=== PATIENT | female | born 1985 | race Caucasian/White ===

== ENCOUNTER 2023-06-17 15:18 | Outpatient (OUT) | payer OTHER, SELFPAY ==
[2023-06-17 15:48] LABS: Estimated Average Glucose 151 mg/dL; Glycohemoglobin A1C 6.9 % (4.5-6.2)
[2023-06-19 11:14] LABS: Insulin 19.6 uIU/mL (2.6-24.9)
== END 2023-06-17 15:19 | disposition home or self-care (01) ==
LOC: LAB 15:20
PROVIDERS: PCP Nurse Practitioner Family; Visit Provider Nurse Practitioner Family
DX: E66.01 Morbid (severe) obesity due to excess calories (principal)
CPT/HCPCS: 36415; 83036; 83525

== ENCOUNTER 2024-03-17 11:33 | Outpatient (OUT) | payer OTHER, SELFPAY ==
[2024-03-17 12:00] LABS: Estimated Average Glucose 171 mg/dL; Glycohemoglobin A1C 7.6 % (4.5-6.2)
[2024-03-17 12:32] LABS: Alanine Aminotransferase 41 U/L (14-59); Albumin Globulin Ratio 1.1; Alkaline Phosphatase 76 U/L (46-116); Anion Gap 14.9; Aspartate Amino Transferase 24 U/L (15-37); Bilirubin Total 0.6 mg/dL (0.2-1.0); Calcium 9.7 mg/dL (8.5-10.1); Carbon Dioxide 26.7 mmol/L (21.0-32.0); Chloride 98 mmol/L (98-107); Chol HDL Ratio 3.9; Cholesterol 183 mg/dL (<=200); Estimated GFR (African America >60 (>=60); Estimated GFR (Non-African Ame >60 (>=60); Free T3 2.79 pg/mL (2.18-3.98); Globulin 3.8 g/dL; Glucose 168 mg/dL (74-106); HDL Cholesterol 47 mg/dL (40-60); Potassium 4.6 mmol/L (3.5-5.1); Sodium 135 mmol/L (136-145); Thyroid Stimulating Hormone 1.348 uIU/mL (0.358-3.740); Total Protein 7.8 g/dL (6.4-8.2); Triglycerides 254 mg/dL (<=150); VLDL CHOLESTEROL 50.8 mg/dL
[2024-03-17 13:43] LABS: Basophils Percent Auto 0.4 % (0.2-2.0); Eosinophils Absolute Auto 0.2 10^3/uL (0.0-0.7); Eosinophils Percent Auto 2.5 % (0.9-7.0); Hematocrit 41.9 % (36.0-48.0); Hemoglobin 13.7 g/dL (12.0-16.0); Immature Granulocytes Abs Auto 0.03 10^3/uL (0.00-0.03); Immature Granulocytes Pct Auto 0.4 % (0.0-0.5); Lymphocytes Absolute Auto 2.4 10^3/uL (1.2-3.8); Lymphocytes Percent Auto 33.1 % (20.5-60.0); Mean Corpuscular HGB Conc 32.7 g/dL (29.9-35.2); Mean Corpuscular Hemoglobin 28.1 pg (26.7-34.0); Mean Platelet Volume 12.3 fL (9.5-13.5); Monocytes Absolute Auto 0.3 10^3/uL (0.3-0.8); Monocytes Percent Auto 4.4 % (1.7-12.0); Neutrophils Absolute Auto 4.3 10^3/uL (1.4-6.5); Neutrophils Percent Auto 59.2 % (43.0-75.0); Platelet Count 259 10^3/uL (150-450); Red Blood Count 4.87 10^6/uL (4.20-5.40); Red Cell Distribution Width 13.7 % (11.0-15.0); White Blood Count 7.3 10^3/uL (4.0-11.0)
[2024-03-18 09:10] LABS: Insulin 35.8 uIU/mL (2.6-24.9)
== END 2024-03-17 11:34 | disposition home or self-care (01) ==
PROVIDERS: PCP Nurse Practitioner Family; Visit Provider Nurse Practitioner Family
DX: E78.5 Hyperlipidemia, unspecified (principal); R53.83 Other fatigue; E11.9 Type 2 diabetes mellitus without complications; E16.1 Other hypoglycemia
CPT/HCPCS: 36415; 80053; 80061; 82306; 83036; 83525; 83540; 84436; 84443; 84481; 85025

== ENCOUNTER 2025-03-18 12:34 | Outpatient (OUT) | payer OTHER, SELFPAY ==
[2025-03-18 12:51] LABS: Basophils Percent Auto 0.4 % (0.2-2.0); Eosinophils Absolute Auto 0.2 10^3/uL (0.0-0.7); Eosinophils Percent Auto 2.3 % (0.9-7.0); Hematocrit 44.3 % (36.0-48.0); Hemoglobin 14.7 g/dL (12.0-16.0); Immature Granulocytes Abs Auto 0.01 10^3/uL (0.00-0.03); Immature Granulocytes Pct Auto 0.1 % (0.0-0.5); Lymphocytes Absolute Auto 2.6 10^3/uL (1.2-3.8); Lymphocytes Percent Auto 36.9 % (20.5-60.0); Mean Corpuscular HGB Conc 33.2 g/dL (29.9-35.2); Mean Corpuscular Hemoglobin 28.1 pg (26.7-34.0); Mean Corpuscular Volume 84.7 fL (81.0-99.0); Mean Platelet Volume 11.2 fL (9.5-13.5); Monocytes Absolute Auto 0.2 10^3/uL (0.3-0.8); Monocytes Percent Auto 3.5 % (1.7-12.0); Neutrophils Absolute Auto 3.9 10^3/uL (1.4-6.5); Neutrophils Percent Auto 56.8 % (43.0-75.0); Platelet Count 252 10^3/uL (150-450); Red Blood Count 5.23 10^6/uL (4.20-5.40); White Blood Count 6.9 10^3/uL (4.0-11.0)
[2025-03-18 13:05] LABS: Estimated Average Glucose 269 mg/dL
[2025-03-18 13:26] LABS: Alanine Aminotransferase 58 U/L (14-59); Albumin Level 3.8 g/dL (3.4-5.0); Alkaline Phosphatase 101 U/L (46-116); Anion Gap 12.9; Aspartate Amino Transferase 50 U/L (15-37); BUN Creatinine Ratio 10.7; Bilirubin Total 0.5 mg/dL (0.2-1.0); Calcium 9.3 mg/dL (8.5-10.1); Carbon Dioxide 27.5 mmol/L (21.0-32.0); Chloride 101 mmol/L (98-107); Chol HDL Ratio 3.7; Cholesterol 177 mg/dL (<=200); Estimated GFR (African America >60 (>=60 mL/min/1.73m^2); Estimated GFR (Non-African Ame >60 (>=60 mL/min/1.73m^2); Free T3 2.29 pg/mL (2.18-3.98); Globulin 3.8 g/dL; Glucose 207 mg/dL (74-106); HDL Cholesterol 48 mg/dL (40-60); Potassium 4.4 mmol/L (3.5-5.1); Sodium 137 mmol/L (136-145); Thyroid Stimulating Hormone 2.029 uIU/mL (0.358-3.740); Total Protein 7.6 g/dL (6.4-8.2); Triglycerides 200 mg/dL (<=150)
[2025-03-20 14:13] LABS: Insulin 23.6 uIU/mL (2.6-24.9)
== END 2025-03-18 12:35 | disposition home or self-care (01) ==
LOC: LAB 12:36
PROVIDERS: PCP Nurse Practitioner Family; Visit Provider Nurse Practitioner Family
DX: Z00.00 Encounter for general adult medical examination without abnormal findings (principal)
CPT/HCPCS: 36415; 80053; 80061; 82306; 83036; 83525; 83540; 84436; 84443; 84481; 85025

== ENCOUNTER 2025-06-23 16:18 | Outpatient (OUT) | payer OTHER, SELFPAY ==
--- OUTSIDE RECORDS SUMMARY | 2025-03-17 10:32 | XMS_ITS ---
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 Name Role Phone Ling Jacobs Primary Care Provider REASON FOR VISIT yearly labs Encounters Encounter Location Date Provider Diagnosis [facility] [address] [place] [address] 03/17/2025 Ling Jacobs Wellness examination Z00.00 Assessments Encounter Date Diagnosis (ICD Code) Assessment Notes Treatment Notes Treatment Clinical Notes Section Notes 03/17/2025 Wellness examination (ICD-10 - Z00.00) Plan Of Treatment Pending Test Test Name Order Date HEMOGLOBIN A1C (GLYCO) 03/17/2025 IRON, TOTAL 03/17/2025 LIPID PANEL (CHOL/TRIG/HDL/LDL) 03/17/20 25 VITAMIN D, 25 LEVEL (TOTAL) 03/17/2025 Insulin Level 03/17/2025 THYROID PANEL (T4/TSH/FREE T3) 5 CMP (COMP MET BENITEZ) w/eGFR CKD-EPI 2024 CBC WITH DIFF 03/17/2025 Next Appt Details Provider Name:Ling plummer, 06/26/2025 04:00:00 PM, [address] [place], [address], Progress Notes * Desirae ROBLES LDOB:[birth year] (40 yo F)Acc No.[id number]:03/17/2025 Patient: Inocencia HAWKINSDesirae FRY :1985 A ge:40 Y S ex:Female Address:[address] [place] [address], [id number] Subjective: * Chief Complaints: * Y early labs * Medical History: * Surgical History: * Hospitalization/Major Diagno stic Procedure: * Medications: Objective: * Vitals: * Physical Examination: Assessment: * Assessment: 1. [facility] examination - Z00.00 (Primary) Plan: * Treatment: * Procedure Codes: * true * Date: Generated for Jane summers/Daniel/Devansmitting on: 0 06/23/2025 04:23 PM EDT
--- OUTSIDE RECORDS SUMMARY | 2025-03-23 12:00 | XMS_ITS ---
Author Organization [facility] in [place] Address [address] [place] [address] Care Team Providers Care Relocation Coordinator Name Role Phone Ling Jacobs Primary Care Provider Allergies No Known Allergies REASON FOR VISIT Presents to office alone for 3 month check up Medications Medication SIG (Take, Route, Frequency, Duration) Notes Start Date End Date Status Cetirizine HCl 10 MG TAKE 1 TABLET BY MO UTH EVERY DAY NEEDED for 30 Active Amitriptyline HCl 50 MG 1 tablet at bedt shanae Orally Once a day for 30 days 08/01/2024 Active Atorvastatin Calcium 40 MG TAKE 1 TABLET BY MOUTH EVERY DAY for 90 Active busPIRone HCl 15 MG TAKE 1 TABLET BY JUSTIN TWICE A DAY for 30 Active Escitalopram Oxalate 20 MG TAKE 1 TABLET BY MOUTH EVERY DAY FOR 30 DAYS for 30 Active Triamcinolone Acetonide 0.1 % APPLY EXTERNALLY TWICE A DAY for 30 days Active valACYclovir HCl 1 GM 2 tablet Orally BI D for 1 days 08/18/2024 Active Victoza 18 MG/3ML 1.8 mg daily Subcuta neous qd for 90 days 08/01/2024 Active Vitamin D3 50 MCG (1999) TAKE 2 TABLE TS BY MOUTH EVERY DAY for 30 days Active metFORMIN HCl 500 MG TAKE 1 TABLET BY MO UTH TWICE A DAY WITH A MEAL FOR 90 DAYS for 90 Active Omeprazole 40 MG TAKE 1 CAPSULE BY MO UTH EVERY DAY for 30 Active Ondansetron HCl 4 MG TAKE 1 TABLET BY MO UTH TWICE A DAY NEEDED for 30 days Active Pen [place] 31G X 6 MM as directed for 30 days Active Lisinopril 40 MG TAKE 1 TABLET BY JUSTIN TH EVERY DAY FOR 30 DAYS for 30 Active Social History Tobacco Use: Social History Observation Description Date Details (start date - stop date) Never Smoker NA - NA Tobacco Use/Smoking Question Answer Notes Patient is a nonsmoker AUDIT-C (Standard) Question Answer Notes Did you have a drink containing alcohol in the p ast year? No Points 0 Interpretation Negative Vital Signs Blood pressure systolic 144 mm Hg 03/23/20 25 Blood pressure diastolic 82 mm Hg 025 Height 63 in 03/23/2025 Weight 399.8 lbs 03/23/2025 BMI 70.81 kg/m2 03/23/2025 Encounters Encounter Location Date Provider Diagnosis [facility] [address] [place] [address] 03/23/2025 Ling Jacobs Type 2 diabetes mellitus without complications E11.9 and Other disorders of psychological development F88 Assessments Encounter Date Diagnosis (ICD Code) Assessment Notes Treatment Notes Treatment Clinical Notes Section Notes 03/23/2025 Type 2 diabetes mellitus without complications (ICD-10 - E11.9) increase Victoza work on diet not checking BS 03/23/2025 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) mental acuity affecting health Plan Of Treatment Medication Medication Name Sig Start Date Stop Date Notes Victoza 18 MG/3ML 1.8 mg daily Subcutaneous qd for 90 days 08/01/2024 Treatment Notes Assessment Notes Type 2 diabetes mellitus wit hout complications increase Victoza work on diet not checking BS Other disorders of psychological develop ment mental acuity affecting health Pending Test Test Name Order Date HEMOGLOBIN A1C (GLYCO) 03/23/2025 Next Appt Details Follow Up: 3 Months,Heather lawson son: Provider Name:Ling plummer, 06/26/2025 04:00:00 PM, [address] [place], [address], Progress Notes * Desirae ROBLES LDOB:[birth year] (40 yo F)Acc No.[id number]:03/23/2025 Progress Note Patient: Desirae OG Provider: Luis Jacobs ([facility]), MEDICAL INSTRUMENT TECHNICIAN :1985 A ge:40 Y S ex:Female Date:03/23/2025 Address:[address] [place] [address], [id number] Check In:03:49 PM ESTCheck O ut:04:22 PM EST Subjective: * Chief Complaints: * 1 . Presents to office alone for 3 month check up. * HPI: G eneral: Dad 2 months ago got 2 year old Ivorian georgi walking dog friend moved in with brother and her doing ok getting to [employer] game in May sleeping ok 1.8 increase Victoza 3 month does not want to see derm for psoriasis. * ROS: G eneral/Constitutional: Fever d enies. H eadache d enies. W eight loss?denies. O phthalmologic: Discharge d enies. E ye Pain d enies. I tching and redness d enies. E NT: Nasal discharge d enies. N simran congestion d enies.?Sore throat d enies. C ardiovascular: Chest tightness/ heavy pressure d enies. R apid heart rate d enies. S welling of extremities d enies. C hest pain d enies. ? R espiratory: Productive cough d enies. C hest pain d enies. C ough d enies. S hortness of breath d enies. W heezing d enies. ? G astrointestinal: Abdominal pain d enies. C onstipation d enies. D ecreased appetite d enies. D iarrhea d enies. N ausea d enies. V omiting?denies. G enitourinary: Urinary incontinence d enies. P ainful urination d enies. M usculoskeletal: Back pain d enies. N barbara pain d enies. M uscle aches d enies. S kin: Rash d enies. S kin lesion(s) p soriasis. ? s ome grief, handling ok. 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 Modified On:03/04/2023W/U Status:confirmed H61.23 Impacted cerumen, bi lateral Modified On:03/04/2023W/U Status:confirmed J01.11 Acute recurrent fron rajendra sinusitis Modified On:03/04/2023 Status:confirmed L40.9 Psoriasis Modified On:03/04/2023 Status:confirmed I10 Hypertension Modified On:03/04/2023 Status:confirmed K21.9 GERD (gastroesophage al reflux disease) Modified On:03/04/2023 Status:confirmed E78.5 Dyslipidemia Modified On:03/04/2023 Status:confirmed R73.9 Hyperglycemia Modified On:03/04/2023 Status:confirmed G47.00 Insomnia Modified On:07/24/2023 Status:confirmed E55.9 Vitamin D deficiency Modified On:03/04/2023 Status:confirmed F41.8 Depression with anxi ety Modified On:03/04/2023 Status:confirmed J30.2 Seasonal allergic rh initis Modified On:03/04/2023 Status:confirmed F41.0 Panic attack Modified On:03/04/2023 Status:confirmed E88.81 Dysmetabolic syndrom e X Modified On:03/04/2023 Status:confirmed E16.1 Hyperinsulinemia Modified On:03/04/2023 Status:confirmed Z68.45 BMI 70 and over, abbey lt Modified On:03/04/2023 Status:confirmed 477.9 Seasonal allergic rh initis Modified On:03/04/2023 Status:confirmed E66.01 Morbid (severe) obes ity due to excess calories Modified On:06/12/2023 Status:confirmed F41.0 Panic anxiety syndro me Modified On:02/03/2023 Status:confirmed F41.8 Anxiety disorder in conditions classified elsewhere Modified On:08/14/2023 Status:confirmed F41.9 Anxiety disorder, un specified Modified On:08/19/2023 Status:confirmed E11.9 Type 2 diabetes simon itus without complications Modified On:09/17/2023 Status:confirmed * Medical History: P anic attack, Insomnia, GERD (gastroesophageal reflux disease), BMI 70 and over, adult, Hyperglycemia, Hyperinsulinemia, Impacted cerumen, bilateral, Other disorders of psychological development, Acute recurrent frontal sinusitis, Vitamin D deficiency, Depression with anxiety, Dyslipidemia, Dysmetabolic syndrome X, Psoriasis, Seasonal allergic rhinitis, Seasonal allergic rhinitis, Hypertension, Morbid (severe) obesity due to excess calories, Headache. * Surgical History: w isdom teeth extracted . * Family History: F ather: alive, diagnosed with Other malignant neoplasm of unspecified site, Diabetes mellitus without mention of complication, type II or unspecified type, not stated as uncontrolled, Unspecified essential hypertension, Unspecified heart disease, Chronic kidney disease, unspecified. M other: , passed in 2004 from heart disease, diagnosed with Unspecified heart disease. B rother(s): alive. 1 brother(s) . . * Social History: T obacco Use: T obacco Use/Smoking P atient is a n onsmoker D rug/Alcohol: A KEVON-C (Standard) D id you have a drink containing alcohol in the past year? N o P oints 0 I nterpretation N egative * Medications: T aking Amitriptyline HCl 50 MG Tablet 1 tablet at bedtime Orally Once a day , Taking Atorvastatin Calcium 40 MG Tablet TAKE 1 TABLET BY MOUTH EVERY DAY , Taking busPIRone HCl 15 MG Tablet TAKE 1 TABLET BY MOUTH TWICE A DAY , Taking Cetirizine HCl 10 MG Tablet TAKE 1 TABLET BY MOUTH EVERY DAY NEEDED , Taking Escitalopram Oxalate 20 MG Tablet TAKE 1 TABLET BY MOUTH EVERY DAY FOR 30 DAYS , Taking Lisinopril 40 MG Tablet TAKE 1 TABLET BY MOUTH EVERY DAY FOR 30 DAYS , Taking metFORMIN HCl 500 MG Tablet TAKE 1 TABLET BY MOUTH TWICE A DAY WITH A MEAL FOR 90 DAYS , Taking Omeprazole 40 MG Capsule Delayed Release TAKE 1 CAPSULE BY MOUTH EVERY DAY , Taking Ondansetron HCl 4 MG Tablet TAKE 1 TABLET BY MOUTH TWICE A DAY NEEDED , Taking Pen [place] 31G X 6 MM Miscellaneous as directed , Taking Triamcinolone Acetonide 0.1 % Cream APPLY EXTERNALLY TWICE A DAY , Taking valACYclovir HCl 1 GM Tablet 2 tablet Orally BID , Taking Victoza(Liraglutide) 18 MG/3ML Solution Pen-injector 1.2 mg daily Subcutaneous qd , Taking Vitamin D3 50 MCG (2000 UT) Tablet TAKE 2 TABLETS BY MOUTH EVERY DAY , Discontinued Xanax(ALPRAZolam) 0.25 MG Tablet 1 tablet Orally once a day as needed anxiety , Medication List reviewed and reconciled with the patient * Allergies: N .K.D.A. Objective: * Vitals: W t:399.8lbs, Ht: 63 in, BP:144/82mm Hg, BMI:70.81Index, Ht-cm: 160.02 cm, Wt-k.35 kg. * Examination: G eneral Examinations: GENERAL APPEARANCE: a lert and oriented, in no acute distress, obese. EYES: c onjunctiva normal, sclera non-icteric. NOSE: n ormal external appearance. LUNGS: c lear to auscultation bilaterally. CARDIO: r egular rate and rhythm, S1, S2 normal. ABDOMEN: s oft, obese. MUSCULOSKELETAL: d ecreased ROM due to body habitus. SKIN: e xtensive psoriasis. Assessment: * Assessment: 1. T ype 2 diabetes mellitus without complications - E11.9 (Primary) 2 . 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 O ther disorders of psychological development Notes: mental acuity affecting health * Preventive Medicine: Screenings/Counseling: B CT ACTION PLAN Above Normal BMI Follow-up D ietary management education, guidance, and counseling See treatment section of progress note for complete details of management plan. * Follow Up: 3 Months,prn * * Electronically signed by Archana Jacobs NP, AUTO AIR CONDITIONING APPRENTICE.MEDICAL INSTRUMENT TECHNICIAN.[id number] on 03/27/2025 at 11:45 AM EDT Sign off status: Completed Visit Status: C HK (Check Out) true * Provider: Luis Jacobs ([facility]), MEDICAL INSTRUMENT TECHNICIAN Date: 03/23/2025 Generated for Jane summers/Daniel/eTransmitting on: 0 06/23/2025 04:23 PM EDT History and Physical Notes * HPI (History of Present Illness) Category Sub-Category Detail Notes Category Not es General Dad 2 months ago got 2 year old Ivorian georgi walking dog friend moved in with brother and her doing ok getting to [employer] game in May sleeping ok 1.8 increase Victoza 3 month does not want to see derm for psoriasis Examination Category Sub-Category Detail Notes Category Not es General Examinations GENERAL APPEARANCE: alert a nd oriented, in no acute distress, obese EYES: conjunctiva normal, sclera non-icteric EARS: NOSE: normal external appe arance THROAT: CARDIO: regular rate and rhy thm, S1, S2 normal LUNGS: clear to auscultatio n bilaterally ABDOMEN: soft, obese SKIN: extensive psoriasis BACK: MUSCULOSKELETAL: decreased ROM due to body habitus LYMPH NODES:
--- OUTSIDE RECORDS SUMMARY | 2025-06-23 16:24 | XMS_ITS | Patient Health Record ---
Author Organization [facility] [place] Address [address] [place] [address] Care Team Providers Care Sizer Hand Name Role Phone Ling Jacobs Primary Care Provider [phone] [phone] Allergies No Known Allergies Results Component Value Reference Range Notes INSULIN Reviewed date:03/21/2025 08:46:08 AM Interpretation: Performing Lab: Notes/Report: [facility] , Insulin 23.6 2.6-24.9 uIU/mL Performed at: - [facility] [address] [id number] Scoop Operator: Joel Mckeon PhD, Phone: [phone] Performing Lab: see note - [facility] LB IRON Reviewed date:03/20/2025 01:16:12 PM Interpretation: Performing Lab: Notes/Report: [facility] , Iron 45.0 50.0-170.0 ug/dL Performing Lab: see note ML - [facility] LB GLYCOHEMOGLOBIN A1C Reviewed date:03/20/2025 01:16:12 PM Interpretation: Performing Lab: Notes/Report: [facility] , Glycohemoglobin A1C 11.0 4.5-6.2 % ADA RECOMMENDED LIMIT 4.0 - 6.0 ADA THERAPEUTIC TARGET < 7.0 ACTION SUGGESTED > 7.0 Estimated Average Glucose 269 Performing Lab: see note - [facility] LB CBC AUTO DIFF Reviewed date:03/20/2025 01:16:12 PM Interpretation: Performing Lab: Notes/Report: [facility] , White Blood Count 6.9 4.0-11.0 10 3/uL Red Blood Count 5.23 4.20-5.40 10 6/uL Hemoglobin 14.7 12.0-16.0 g/dL Hematocrit 44.3 36.0-48.0 % Mean Corpuscular Volume 84.7 81.0-99.0 fL Mean Corpuscular Hemoglobin 28.1 26.7-34.0 pg Mean Corpuscular HGB Conc 33.2 29.9-35.2 g/dL Red Cell Distribution Width 14.0 11.0-15.0 % Platelet Count 252 150-450 10 3/uL Mean Platelet Volume 11.2 9.5-13.5 fL Neutrophils Percent Auto 56.8 43.0-75.0 % Lymphocytes Percent Auto 36.9 20.5-60.0 % Monocytes Percent Auto 3.5 1.7-12.0 % Eosinophils Percent Auto 2.3 0.9-7.0 % Basophils Percent Auto 0.4 0.2-2.0 % Immature Granulocytes Pct Auto 0.1 0.0-0.5 % Neutrophils Absolute Auto 3.9 1.4-6.5 10 3/uL Lymphocytes Absolute Auto 2.6 1.2-3.8 10 3/uL Monocytes Absolute Auto 0.2 0.3-0.8 10 3/uL Eosinophils Absolute Auto 0.2 0.0-0.7 10 3/uL Basophils Absolute Auto 0.0 0.0-0.1 10 3/uL Immature Granulocytes Abs Auto 0.01 0.00-0.03 10 3/uL Performing Lab: see note ML - [facility] LB TSH Reviewed date:03/20/2025 01:16:12 PM Interpretation: Performing Lab: Notes/Report: [facility] , Thyroid Stimulating Hormone 2.029 0.358-3.740 u IU/mL Performing Lab: see note ML - [facility] LB T4 Reviewed date:03/20/2025 01:16:12 PM Interpretation: Performing Lab: Notes/Report: [facility] , T4 Thyroxine 6.00 4.80-13.90 ug/dL Performing Lab: see note - [facility] LB PROF 14(COMP METB) Reviewed date:03/20/2025 01:16:12 PM Interpretation: Performing Lab: Notes/Report: [facility] , Sodium 137 136-145 mmol/L Potassium 4.4 3.5-5.1 mmol/L Chloride 101 98-107 mmol/L Carbon Dioxide 27.5 21.0-32.0 mmol/L Anion Gap 12.9 Glucose 207 74-106 mg/dL Blood Urea Nitrogen 8.0 7.0-18.0 mg/dL Creatinine 0.75 0.55-1.02 mg/dL Estimated GFR ( Gladys >60 >=60 mL/min/1.73m 2 Estimated GFR (Non- Doris >60 >=60 mL/min/1.73m 2 BUN Creatinine Ratio 10.7 Calcium 9.3 8.5-10.1 mg/dL Bilirubin Total 0.5 0.2-1.0 mg/dL Aspartate Amino Transferase 50 15-37 U/L Alanine Aminotransferase 58 14-59 U/L Alkaline Phosphatase 101 46-116 U/L Total Protein 7.6 6.4-8.2 g/dL Albumin Level 3.8 3.4-5.0 g/dL Globulin 3.8 Albumin Globulin Ratio 1.0 Performing Lab: see note ML - [facility] LIPID PROFILE Reviewed date:03/20/2025 01:16:12 PM Interpretation: Performing Lab: Notes/Report: [facility] , Triglycerides 200 <=150 mg/dL Cholesterol 177 <=200 mg/dL HDL Cholesterol 48 40-60 mg/dL > or =60 mg/dl - LOW CARDIOVASCULAR RISK <40 mg/dl - HIGH CARDIOVASCULAR RISK LDL Cholesterol Calculated 89.0 <100 mg/dl OPTIMAL 100-129 mg/dl NEAR OR ABOVE OPTIMAL 130-159 mg/dl BORDERLINE HIGH 160-189 mg/dl HIGH >190 mg/dl VERY HIGH VLDL CHOLESTEROL 40.0 Chol HDL Ratio 3.7 3.3 - 4.4 LOW RISK 4.4 - 7.1 AVERAGE RISK 7.1 - 11.0 MODERATE RISK >11.0 HIGH RISK Performing Lab: see note ML - [facility] FREE T3 Reviewed date:03/20/2025 01:16:12 PM Interpretation: Performing Lab: Notes/Report: [facility] , Free T3 2.29 2.18-3.98 pg/mL Performing Lab: see note ML - [facility] VITAMIN D 25 [place] Reviewed date:03/20/2025 01:16:12 PM Interpretation: Performing Lab: Notes/Report: [facility] , Vitamin D 35.8 <20 ng/mL Vit D deficient 20-<30 ng/mL Vit D insufficient 30-100 ng/mL Vit D sufficient >100 ng/mL Potential Toxicity Performing Lab: see note ML - [facility] LB Reason For Referral No Information Medications Medication SIG (Take, Route, Frequency, Duration) Notes Start Date End Date Status metFORMIN HCl 500 MG TAKE 1 TABLET BY MO UTH TWICE A DAY WITH A MEAL FOR 90 DAYS for 90 Active Cetirizine HCl 10 MG TAKE 1 TABLET BY MO UTH EVERY DAY FOR 30 DAYS for 30 Active Omeprazole 40 MG TAKE 1 CAPSULE BY MO UTH EVERY DAY for 30 Active Pen [place] 31G X 6 MM as directed for 30 days Active Escitalopram Oxalate 20 MG TAKE 1 TABLET BY MOUTH EVERY DAY FOR 30 DAYS for 30 Active Lisinopril 40 MG TAKE 1 TABLET BY JUSTIN TH EVERY DAY FOR 30 DAYS for 30 Active Triamcinolone Acetonide 0.1 % APPLY EXTERNALLY TWICE A DAY for 30 days Active Amitriptyline HCl 50 MG 1 tablet at bedt shanae Orally Once a day for 30 days 08/01/2024 Active valACYclovir HCl 1 GM 2 tablet Orally BI D for 1 days 08/18/2024 Active Victoza 18 MG/3ML 1.8 mg daily Subcuta neous qd for 90 days 08/01/2024 Active Atorvastatin Calcium 40 MG TAKE 1 TABLET BY MOUTH EVERY DAY for 90 Active busPIRone HCl 15 MG TAKE 1 TABLET BY JUSTIN TH TWICE A DAY for 30 Active Vitamin D3 50 MCG (1999 UT) TAKE 2 TABLE TS BY MOUTH EVERY DAY for 30 days Active Ondansetron HCl 4 MG TAKE 1 TABLET BY MO UTH TWICE A DAY NEEDED for 30 days Active Social History Tobacco Use: Social History Observation Description Date Details (start date - stop date) Never Smoker NA - NA Tobacco Use/Smoking Question Answer Notes Patient is a nonsmoker Alcohol Screen (Audit-C) Question Answer Notes Did you have a drink containing alcohol in the p ast year? No Points 0 Interpretation Negative AUDIT-C (Standard) Question Answer Notes Did you have a drink containing alcohol in the p ast year? 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 Problem Impacted cerumen (32488064) Impacted cerumen, bilateral (H61.23) Active confirmed Problem Acute frontal sinusitis (23383531) Acute recurrent frontal sinusitis (J01.11) Active confirmed Problem Psoriasis (8972279) Psoriasis (L40.9) Active co nfirmed Problem Hypertension (26029735) Hypertension (I10) Active confirmed Problem Gastroesophageal reflux disease (069483476) GERD (gastroesophageal reflux disease) (K21.9) Active confirmed Problem Dyslipidemia (468473030) Dyslipidemia (E78.5) Active confirmed Problem Hyperglycemia (30060135) Hyperglycemia (R73.9) Active confirmed Problem Insomnia (415029449) Insomnia (G47.00) Active confirmed Problem Vitamin D deficiency (25529682) Vitamin D deficiency (E55.9) Active confirmed Problem Mixed anxiety and depressive disorder (626176936) Depression with anxiety (F41.8) Active confirmed Problem Seasonal allergic rhinitis (482218461) Seasonal allergic rhinitis (J30.2) Active confirmed Problem Panic attack (134710035) Panic attack (F41.0) Active confirmed Problem Panic disorder (911968073) Panic anxiety syndrome (F41.0) Active confirmed Problem Dysmetabolic syndrome X (430910377) Dysmetabolic syndrome X (E88.81) Active confirmed Problem Hyperinsulinemia (19395269) Hyperinsulinemia (E16.1) Active confirmed Problem Body mass index 40+ - morbidly obese (762029593) BMI 70 and over, adult (Z68.45) Active confirmed Problem Anxiety disorder (710271456) Anxiety disorder in conditions classified elsewhere (F41.8) Active confirmed Vital Signs Temperature 98.0 degrees Fahrenheit 08/18/2024 Blood pressure diastolic 82 mm Hg 03/23/2025 Height 63 in 03/23/2025 Blood pressure systolic 144 mm Hg 03/23/2025 Weight 399.8 lbs 03/23/2025 BMI 70.81 kg/m2 03/23/2025 Encounters Encounter Location Date Provider Diagnosis [facility] [address] [place] [address] 08/01/2024 Ling Jacobs Headache R51 ; Type 2 diabetes mellitus without complications E11.9 ; Insomnia G47.00 and BMI 70 and over, adult Z68.45 [facility] [address] [facility] [place] [address] 08/18/2024 Ling Jacobs Cough R05.9 ; Cold s ore B00.1 and Hypertension I10 [facility] [address] [place] [address] 12/22/2024 Ling Jacobs Insomnia G47.00 ; Ty pe 2 diabetes mellitus without complications E11.9 and Psoriasis L40.9 [facility] [address] [place] [address] 03/23/2025 Ling Jacobs Type 2 diabetes mellitus without complications E11.9 and Other disorders of psychological development F88 [facility] [address] [facility] [place] [address] 08/03/2024 Kirby Burketty Type 2 diabetes mellitus without complications E11.9 [facility] [address] [facility] [place] [address] 08/04/2024 Ling Jacobs Type 2 diabetes mellitus without complications E11.9 [facility] [address] [facility] [place] [address] 08/18/2024 Ling Jacobs [facility] [address] [facility] [place] [address] 08/19/2024 Ling Jacobs [facility] [address] [place] [address] 09/19/2024 Ling Jacobs Hypertension I10 [facility] [address] [facility] [place] [address] 10/17/2024 Ling Jacobs [facility] [address] [facility] [place] [address] 01/20/2025 Ling Jacobs Type 2 diabetes mellitus without complications E11.9 [facility] [address] [place] [address] 02/09/2025 Ling Jacobs Hypertension I10 [facility] [address] [place] [address] 03/17/2025 Ling Jacobs Wellness examination Z00.00 [facility] [address] [place] [address] 06/16/2025 Ling Jacobs Assessments Encounter Date Diagnosis (ICD Code) Assessment Notes Treatment Notes Treatment Clinical Notes Section Notes 08/01/2024 Headache (ICD-10 - R51) amitrip help with headaches? 08/01/2024 Type 2 diabetes mellitus without complications (ICD-10 - E11.9) 08/03/2024 Type 2 diabetes mellitus without complications (ICD-10 - E11.9) 08/04/2024 Type 2 diabetes mellitus without complications (ICD-10 - E11.9) 09/19/2024 Hypertension (ICD-10 - I10) 01/20/2025 Type 2 diabetes mellitus without complications (ICD-10 - E11.9) 02/09/2025 Hypertension (ICD-10 - I10) 03/17/2025 Wellness examination (ICD-10 - Z00.00) 08/18/2024 Cough (ICD-10 - R05.9) 08/18/2024 Cold sore (ICD-10 - B00.1) 12/22/2024 Insomnia (ICD-10 - G47.00) 03/23/2025 Type 2 diabetes mellitus without complications (ICD-10 - E11.9) increase Victoza work on diet not checking BS 03/23/2025 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) mental acuity affecting health 12/22/2024 Type 2 diabetes mellitus without complications (ICD-10 - E11.9) 08/18/2024 Hypertension (ICD-10 - I10) 08/01/2024 Insomnia (ICD-10 - G47.00) 08/01/2024 BMI 70 and over, adult (ICD-10 - Z68.45) start kymza has gained 30 lbs since last visit fu one month work on portion size 12/22/2024 Psoriasis (ICD-10 - L40.9) fu derm Plan Of Treatment Pending Test Test Name Order Date CMP (COMPLETE METABOLIC PANEL) 3 CMP (COMPLETE METABOLIC PANEL) 4 HEMOGLOBIN A1C (GLYCO) 03/12/2023 HEMOGLOBIN A1C (GLYCO) 02/18/2024 HEMOGLOBIN A1C (GLYCO) 03/23/2025 HEMOGLOBIN A1C (GLYCO) 06/12/2023 HEMOGLOBIN A1C (GLYCO) 03/17/2025 IRON, TOTAL 03/17/2025 IRON, TOTAL 02/18/2024 IRON, TOTAL 03/12/2023 LIPID PANEL (CHOL/TRIG/HDL/LDL) 02/18/20 24 LIPID PANEL (CHOL/TRIG/HDL/LDL) 03/12/20 23 LIPID PANEL (CHOL/TRIG/HDL/LDL) 03/17/20 25 CBC WITH DIFF 03/12/2023 CBC WITH DIFF 02/18/2024 VITAMIN D, 25 LEVEL (TOTAL) 03/17/2025 VITAMIN D, 25 LEVEL (TOTAL) 02/18/2024 H PYLORI SCREEN 09/21/2023 Insulin Level 03/17/2025 Insulin Level 03/12/2023 Insulin Level 06/12/2023 Insulin Level 02/18/2024 PREG QUANT HCG 09/21/2023 THYROID PANEL (T4/TSH/FREE T3) 3 THYROID PANEL (T4/TSH/FREE T3) 5 THYROID PANEL (T4/TSH/FREE T3) 4 CMP (COMP MET BENITEZ) w/eGFR CKD-EPI 2024 CBC WITH DIFF 03/17/2025 Next Appt Details Provider Name:Ling plummer, 06/26/2025 04:00:00 PM, [address] [place], [address], Insurance Providers Payer Name Payer Address Payer Phone Subscriber Number Group Number Insured Name Patient Relationship to Insured Coverage Start Date Coverage End Date [employer] [place] [employer] [address] [place] [address] [id number] Jamshid Desirae Self - patient is the insured 9 Medical (General) History Medical History History ICD Code Panic attack F41.0 Insomnia G47.00 GERD (gastroesophageal reflux disease) K 21.9 BMI 70 and over, adult Z68.45 Hyperglycemia R73.9 Hyperinsulinemia E16.1 Impacted cerumen, bilateral H61.23 Other disorders of psychological develop ment F88 Acute recurrent frontal sinusitis J01.11 Vitamin D deficiency E55.9 Depression with anxiety F41.8 Dyslipidemia E78.5 Dysmetabolic syndrome X E88.81 Psoriasis L40.9 Seasonal allergic rhinitis 477.9 Seasonal allergic rhinitis J30.2 Hypertension I10 Morbid (severe) obesity due to excess ca lories E66.01 Headache 784.0 Surgical History Surgery Date(Month/Year) wisdom teeth extracted
--- OUTSIDE RECORDS SUMMARY | 2025-06-23 16:41 | XMS_ITS | CCD ---
Author Organization [facility] Inform ion Partnership [facility] Care Team Providers Care Bin Operator Name Role Phone ELLEN FULLER Attending Unavailable ELLEN FULLER Consulting Unavailable ELLEN FULLER Primary Care Unavailable ELLEN FULLER Admitting Unavailable Problems Problem Classification Problem Date Documented Da te Episodic/Chronic Essential hypertension (4 sources) Essential (primary) hypertension; Translations: [ESSENTIAL PRIMARY HYPERTENSION] Onset: 03-12-2023 Chronic Results Test Name Value Interpretation Reference Range Facil ity INSULINon 03-13-2023 Insulin 28.1 uIU/mL Critically high 2.6-24.9 [facility] Comment on above: Performed By: #### I NSULIN #### [facility] [address] [place] [address] Dr. Jonh Rojas CBC AUTO DIFFon 03-12-2023 BASO # 0.0 103/ul Normal 0.0-0.1 [facility] Comment on above: Performed By: #### C BC #### [facility] [address] [place] [address] Dr. Jonh Rojas Basophils/100 WBC (Bld) 0.6 % Normal 0.2-2.0 [facility] Comment on above: Performed By: #### C BC #### [facility] [address] [place] [address] Dr. Jonh Rojas EO # 0.1 103/ul Normal 0.0-0.7 [facility] Comment on above: Performed By: #### C BC #### [facility] [address] [address] [address] Jonh Rojas Eosinophils/100 WBC (Bld) 1.6 % Normal 0.9-7.0 [facility] Comment on above: Performed By: #### C BC #### [facility] [address] [place] [address] Dr. Jonh Rojas Erythrocyte distribution width (RBC) [Ratio] 13.6 % Normal 11.0-15.0 [facility] Comment on above: Performed By: #### C BC #### [facility] [address] [place] [address] Dr. Jonh Rojas Hematocrit (Bld) [Volume fraction] 43.3 % Normal 36.0-48.0 [facility] Comment on above: Performed By: #### C BC #### [facility] [address] [place] [address] Dr. Jonh Rojas Hemoglobin (Bld) [Mass/Vol] 14.3 g/dL Normal 12.0-16.0 [facility] Comment on above: Performed By: #### C BC #### [facility] [address] [place] [address] Dr. Jonh Rojas IG # 0.02 10e3/ul Normal 0.00-0.03 [facility] Comment on above: Performed By: #### C BC #### [facility] [address] [place] [address] Dr. Jonh Rojas IG % 0.3 % Normal 0.0-0.5 [facility] Comment on above: Performed By: #### C BC #### [facility] [address] [place] [address] Dr. Jonh Rojas LYMPH # 2.4 103/ul Normal 1.2-3.8 [facility] Comment on above: Performed By: #### C BC #### [facility] [address] [place] [address] Dr. Jonh Rojas Lymphocytes/100 WBC (Bld) 33.7 % Normal 20.5-60.0 [facility] Comment on above: Performed By: #### C BC #### [facility] [address] [place] [address] Dr. Jonh Rojas MANUAL DIFF REQ NO Normal [facility] Comment on above: Performed By: #### C BC #### [facility] [address] [place] [address] Dr. Jonh Rojas MCH (RBC) [Entitic mass] 27.4 pg Normal 26.7-34.0 [facility] Comment on above: Performed By: #### C BC #### [facility] [address] [place] [address] Dr. Jonh Rojas MCHC (RBC) [Mass/Vol] 33.0 g/dL Normal 29.9-35.2 [facility] Comment on above: Performed By: #### C BC #### [facility] [address] [place] [address] Dr. Jonh Rojas MCV (RBC) [Entitic vol] 83.1 fL Normal 81.0-99.0 [facility] Comment on above: Performed By: #### C BC #### [facility] [address] [place] [address] Dr. Jonh Rojas MONO # 0.3 103/ul Normal 0.3-0.8 [facility] Comment on above: Performed By: #### C BC #### [facility] [address] [place] [address] Dr. Jonh Rojas Monocytes/100 WBC (Bld) 4.3 % Normal 1.7-12.0 [facility] Comment on above: Performed By: #### C BC #### [facility] [address] [place] [address] Dr. Jonh Rojas NEUT # 4.2 103/ul Normal 1.4-6.5 [facility] Comment on above: Performed By: #### C BC #### [facility] [address] [place] [address] Dr. Jonh Rojas Neutrophils/100 WBC (Bld) 59.5 % Normal 43.0-75.0 [facility] Comment on above: Performed By: #### C BC #### [facility] [address] [place] [address] Dr. Jonh Rojas Platelet mean volume (Bld) [Entitic vol] 11.7 fL Normal 9.5-13.5 [facility] Comment on above: Performed By: #### C BC #### [facility] [address] [place] [address] Dr. Jonh Rojas PLT 274 103/ul Normal 150-450 [facility] Comment on above: Performed By: #### C BC #### [facility] [address] [place] [address] Dr. Jonh Rojas RBC 5.21 106/ul Normal 4.20-5.40 [facility] Comment on above: Performed By: #### C BC #### [facility] [address] [place] [address] Dr. Jonh Rojas WBC 7.0 103/ul Normal 4.0-11.0 [facility] Comment on above: Performed By: #### C BC #### [facility] [address] [place] [address] Dr. Jonh Rojas FREE T3on 03-12-2023 FREE T3 2.72 pg/mlL Normal 2.18-3.98 [facility] Comment on above: Performed By: #### C MP, T4, TSH, LIPID, FT3 #### [facility] [address] [place] [address] Dr. Jonh Rojas GLYCOHEMOGLOBIN A1Con 2022 ADA RECOMMENDATION SEE BELOW Normal [facility] Comment on above: Result Comment: ADA RECOMMENDED LIMIT 4.0 - 6.0 ADA THERAPEUTIC TARGET < 7.0 ACTION SUGGESTED > 7.0 Performed By: #### A 1C #### [facility] [address] [place] [address] Dr. Jonh Rojas Glucose [Mass/Vol] 171 mg/dL Normal [facility] Comment on above: Performed By: #### A 1C #### [facility] [address] [place] [address] Dr. Jonh Rojas HbA1c (Bld) [Mass fraction] 7.6 % Critically high 4.5-6.2 [facility] Comment on above: Performed By: #### A 1C #### [facility] [address] [place] [address] Dr. Jonh Rojas IRONon 03-12-2023 Iron [Mass/Vol] 68.0 ug/dL Normal 50.0-170.0 [facility] Comment on above: Performed By: #### V ITAD, IRON #### [facility] [address] [address] [address] Jonh Rojas LIPID PROFILEon 03-12-2023 CHOL-HDL RATIO NORM SEE BELOW Normal [facility] Comment on above: Result Comment: 3.3 - 4.4 LOW RISK 4.4 - 7.1 AVERAGE RISK 7.1 - 11.0 MODERATE RISK >11.0 HIGH RISK Performed By: #### C MP, T4, TSH, LIPID, FT3 #### [facility] [address] [address] [address] Jonh Rojas Cholesterol [Mass/Vol] 185 mg/dL Normal <=200 [facility] Comment on above: Performed By: #### C MP, T4, TSH, LIPID, FT3 #### [facility] [address] [address] [address] Jonh Rojas Cholesterol in HDL [Mass/Vol] 51 mg/dL Normal 40-60 [facility] Comment on above: Performed By: #### C MP, T4, TSH, LIPID, FT3 #### [facility] [address] [address] [address] Jonh Rojas Cholesterol in LDL [Mass/Vol] 84.4 mg/dL Normal [facility] Comment on above: Performed By: #### C MP, T4, TSH, LIPID, FT3 #### [facility] [address] [address] [address] Jonh Rojas Cholesterol.total/Cho lesterol in HDL [Mass ratio] 3.6 {ratio} Normal [facility] Comment on above: Performed By: #### C MP, T4, TSH, LIPID, FT3 #### [facility] [address] [address] [address] Jonh Rojas HDL NORMAL > or = 60 mg/dl - LOW CARDIOVASCULAR RISK <40 mg/dl - HIGH CARDIOVASCULAR RISK Normal [facility] Comment on above: Performed By: #### C MP, T4, TSH, LIPID, FT3 #### [facility] [address] [address] [address] Jonh Rojas LDL CALC NORMAL SEE BELOW Normal [facility] Comment on above: Result Comment: <100 mg/dl OPTIMAL 100 - 129 mg/dl NEAR OR ABOVE OPTIMAL 130 - 159 mg/dl BORDERLINE HIGH 160 - 189 mg/dl HIGH >190 mg/dl VERY HIGH Performed By: #### C MP, T4, TSH, LIPID, FT3 #### [facility] [address] [place] [address] Dr. Jonh Rojas Triglyceride [Mass/Vol] 248 mg/dL Critically high <=150 [facility] Comment on above: Performed By: #### C MP, T4, TSH, LIPID, FT3 #### [facility] [address] [place] [address] Dr. Jonh Rojas VLDL CALC 49.6 mg/dL Normal [facility] Comment on above: Performed By: #### C MP, T4, TSH, LIPID, FT3 #### [facility] [address] [place] [address] Dr. Jonh Rojas PROF 14(COMP METB)on 023 Albumin [Mass/Vol] 3.8 g/dL Normal 3.4-5.0 [facility] Comment on above: Performed By: #### C MP, T4, TSH, LIPID, FT3 #### [facility] [address] [place] [address] Dr. Jonh Rojas Albumin/Globulin [Mass ratio] 0.9 {ratio} Normal [facility] Comment on above: Performed By: #### C MP, T4, TSH, LIPID, FT3 #### [facility] [address] [place] [address] Dr. Jonh Rojas ALP [Catalytic activity/Vol] 76 U/L Normal 46-116 [facility] Comment on above: Performed By: #### C MP, T4, TSH, LIPID, FT3 #### [facility] [address] [place] [address] Dr. Jonh Rojas ALT [Catalytic activity/Vol] 85 U/L Critically high 14-59 [facility] Comment on above: Performed By: #### C MP, T4, TSH, LIPID, FT3 #### [facility] [address] [place] [address] Dr. Jonh Rojas Anion gap [Moles/Vol] 11.1 mmol/L Normal [facility] Comment on above: Performed By: #### C MP, T4, TSH, LIPID, FT3 #### [facility] [address] [address] [address] Jonh Rojas AST [Catalytic activity/Vol] 49 U/L Critically high 15-37 [facility] Comment on above: Performed By: #### C MP, T4, TSH, LIPID, FT3 #### [facility] [address] [address] [address] Jonh Rojas Bilirubin [Mass/Vol] 0.6 mg/dL Normal 0.2-1.0 [facility] Comment on above: Performed By: #### C MP, T4, TSH, LIPID, FT3 #### [facility] [address] [address] [address] Jonh Rojas Calcium [Mass/Vol] 9.3 mg/dL Normal 8.5-10.1 [facility] Comment on above: Performed By: #### C MP, T4, TSH, LIPID, FT3 #### [facility] [address] [address] [address] Jonh Rojas Chloride [Moles/Vol] 101 mmol/L Normal 98-107 [facility] Comment on above: Performed By: #### C MP, T4, TSH, LIPID, FT3 #### [facility] [address] [address] [address] Jonh Rojas CO2 [Moles/Vol] 31.7 mmol/L Normal 21.0-32.0 [facility] Comment on above: Performed By: #### C MP, T4, TSH, LIPID, FT3 #### [facility] [address] [address] [address] Jonh Rojas Creatinine [Mass/Vol] 0.74 mg/dL Normal 0.55-1.02 [facility] Comment on above: Performed By: #### C MP, T4, TSH, LIPID, FT3 #### [facility] [address] [address] [address] Jonh Rojas EGFR-AF BURUNDIAN >60 Normal >=60 [facility] Comment on above: Performed By: #### C MP, T4, TSH, LIPID, FT3 #### [facility] [address] [place] [address] Dr. Jonh Rojas EGFR-NON AF BURUNDIAN >60 Normal >=60 [facility] Comment on above: Performed By: #### C MP, T4, TSH, LIPID, FT3 #### [facility] [address] [place] [address] Dr. Jonh Rojas Globulin (S) [Mass/Vol] 4.1 g/dL Normal [facility] Comment on above: Performed By: #### C MP, T4, TSH, LIPID, FT3 #### [facility] [address] [place] [address] Dr. Jonh Rojas Glucose [Mass/Vol] 128 mg/dL Critically high 74-106 [facility] Comment on above: Performed By: #### C MP, T4, TSH, LIPID, FT3 #### [facility] [address] [place] [address] Dr. Jonh Rojas Potassium [Moles/Vol] 3.8 mmol/L Normal 3.5-5.1 [facility] Comment on above: Performed By: #### C MP, T4, TSH, LIPID, FT3 #### [facility] [address] [place] [address] Dr. John Rojas Protein [Mass/Vol] 7.9 g/dL Normal 6.4-8.2 [facility] Comment on above: Performed By: #### C MP, T4, TSH, LIPID, FT3 #### [facility] [address] [place] [address] Dr. Jonh Rojas Sodium [Moles/Vol] 140 mmol/L Normal 136-145 [facility] Comment on above: Performed By: #### C MP, T4, TSH, LIPID, FT3 #### [facility] [address] [place] [address] Dr. John Rojas Urea nitrogen [Mass/Vol] 9.0 mg/dL Normal 7.0-18.0 [facility] Comment on above: Performed By: #### C MP, T4, TSH, LIPID, FT3 #### [facility] [address] [address] [address] Jonh Rojas Urea nitrogen/Creatinine [Mass ratio] 12.2 mg/mg Normal [facility] Comment on above: Performed By: #### C MP, T4, TSH, LIPID, FT3 #### [facility] [address] [address] [address] Jonh Rojas T4on 03-12-2023 T4 [Mass/Vol] 7.30 ug/dL Normal 4.80-13.90 [facility] Comment on above: Performed By: #### C MP, T4, TSH, LIPID, FT3 #### [facility] [address] [address] [address] Jonh Rojas TSHon 03-12-2023 TSH 1.396 uIU/mL Normal 0.358-3.740 [facility] Comment on above: Performed By: #### C MP, T4, TSH, LIPID, FT3 #### [facility] [address] [place] [address] Dr. Jonh Rojas VITAMIN D 25 OHon 03-12-2023 VIT D 25-OH 37.3 ng/mL Normal [facility] Comment on above: Performed By: #### V DAFNE, IRON #### [facility] [address] [place] [address] Dr. Jonh Rojas VIT D RANGES SEE BELOW Normal [facility] Comment on above: Result Comment: <20 ng/mL Vit D deficient 20 - <30 ng/mL Vit D insufficient 30 - 100 ng/mL Vit D sufficient >100 ng/mL Potential Toxicity Performed By: #### V ITAD, IRON #### [facility] [address] [place] [address] Dr. Jonh Rojas Encounters Encounter Date Encounter Type Care Provider Facility Start: 03-12-2023 End: 03-13-2023 ambulatory [facility] Facility: Payers Date Payer Category Payer Unknown [id number] 1961 Unknown [id number] Summary Purpose Family History No Family History Records Found Advance Directives No Advanced Directives Records Found Additional Source Comments INFORMATION SOURCE (unrecogn ized section and content) DATE CREATED AUTHOR 03/20/2023 [facility] FOR RECORDS PERTAINING TO PATIENTS WHO ARE OR HAVE BEEN ENROLLED IN A CHEMICAL DEPENDENCY/SUBSTANCEABUSE PROGRAM, SOME INFORMATION MAY BE OMITTED. This clinical summary was aggregated from multiple sources. Caution should be exercised in using it in the provision of clinical care. This summary normalizes information from multiple sources, and as a consequence, information in this document may materially change the coding, format and clinical context of patient data. In addition, data may be omitted in some cases. CLINICAL DECISIONS SHOULD BE BASED ON THE PRIMARY CLINICAL RECORDS. [facility]. provides no warranty or guarantee of the accuracy or completeness of information in this document.
== END 2025-06-23 16:19 | disposition home or self-care (01) ==
PROVIDERS: PCP Nurse Practitioner Family; Visit Provider Nurse Practitioner Family
DX: E11.9 Type 2 diabetes mellitus without complications (principal)
CPT/HCPCS: 36415; 83036

== ENCOUNTER 2025-09-30 12:08 | Outpatient (OUT) | payer OTHER, SELFPAY ==
--- OUTSIDE RECORDS SUMMARY | 2025-09-25 03:56 | XMS_ITS ---
Author Organization [facility] in [place] Address [address] [place] [address] Care Team Providers Care Refiner Operator Name Role Phone Ling Jacobs Primary Care Provider REASON FOR VISIT repeat A1C Encounters Encounter Location Date Provider Diagnosis [facility] [address] [place] [address] 09/25/2025 Ling Jacobs Type 2 diabetes mellitus without complications E11.9 Assessments Encounter Date Diagnosis (ICD Code) Assessment Notes Treatment Notes Treatment Clinical Notes Section Notes 09/25/2025 Type 2 diabetes mellitus without complications (ICD-10 - E11.9) Plan Of Treatment Pending Test Test Name Order Date HEMOGLOBIN A1C (GLYCO) 09/25/2025 Next Appt Details Provider Name:Ling plummer, 10/27/2025 03:30:00 PM, [address] [place], [address], Progress Notes * Desirae ROBLES LDOB:[birth year] (40 yo F)Acc No.[id number]:09/25/2025 Patient:?Desirae ROBLES :1985???Age:40 Y???Sex:FemalePhone:[phone] Address:[address] [place] [address], [id number] Subjective: * Chief Complaints: * r epeat A1C * Medical History: * Surgical History: * Hospitalization/Major Diagno stic Procedure: * Medications: Objective: * Vitals: * Physical Examination: ??? Assessment: * Assessment: 1.?Type 2 diabetes mellitus without complications - E11.9 (Primary)??? Plan: * Treatment: ?LAB: HEMOGLOBIN A1C (GLYCO) * Procedure Codes: * true * Date:?Generated for Printing/Faxing/eTransmitting on:?09/30/2025 12:15 PM EST
--- OUTSIDE RECORDS SUMMARY | 2025-09-28 11:00 | XMS_ITS ---
Author Organization [facility] in [place] Address [address] [place] [address] Care Team Providers Care Hospital Nurse Name Role Phone Ling Jacobs Primary Care Provider Allergies No Known Allergies REASON FOR VISIT Presents to office alone for 3 month follow up Medications Medication SIG (Take, Route, Frequency, Duration) Notes Start Date End Date Status Vitamin D3 50 MCG (1999) TAKE 2 TABLE TS BY MOUTH EVERY DAY; Duration: 30 days ActiveAmitriptyline HCl 50 MG1 tablet at bedtime Orally Once a day; Duration: 30 days08/01/2024ctivevalACYclovir HCl 1 GM2 tablet Orally BID; Duration: 1 08/18/2024ctiveAtorvastatin Calcium 40 MGTAKE 1 TABLET BY MOUTH EVERY DAY; Duration: 90ActivebusPIRone HCl 15 MGTAKE 1 TABLET BY MOUTH TWICE A DAY; Duration: 30ActiveOmeprazole 40 MGTAKE 1 CAPSULE BY MOUTH EVERY DAY; Duration: 30ActiveOndansetron HCl 4 MGTAKE 1 TABLET BY MOUTH TWICE A DAY NEEDED; Duration: 30ActivePen [place] 31G X 6 MMas directed; Duration: 30 days08/19/2024 ActiveTriamcinolone Acetonide 0.1 %APPLY TO AFFECTED AREA TWICE A DAY; Duration: 30ActiveTrulicity 0.75 MG/0.5MLINJECT 1 PEN SUBCUTANEOUSLY ONCE PER WEEK DIRECTED; Duration: 28 daysActiveEscitalopram Oxalate 20 MGTAKE 1 TABLET BY MOUTH EVERY DAY FOR 30 DAYS; Duration: 30ActiveMetoprolol Succinate ER 25 MG1 tablet Orally Once a day; Duration: 30 days5ActiveglipiZIDE ER 5 MG1 tablet with food Orally Once a day; Duration: 30 days5ActiveLisinopril 40 MGTAKE 1 TABLET BY MOUTH EVERY DAY FOR 30 DAYS; Duration: 30ActivemetFORMIN HCl 1000 MGTAKE 1 TABLET BY MOUTH TWICE A DAY WITH A MEAL FOR 90 DAYS; Duration: 90 daysActiveCetirizine HCl 10 MGTAKE 1 TABLET BY MOUTH EVERY DAY FOR 30 DAYS; Duration: 30Active Social History Tobacco Use: Social History Observation Description Date Details (start date - stop date) Never Smoker NA - NA Tobacco Use/Smoking Question Answer Notes Patient is a nonsmoker Problems Problem Type SNOMED Code ICD Code Onset Dates Problem Status W/U Status Risk Notes Problem Cold sore (8786985) Cold sore (B00.1) Activeconfirmed Vital Signs Weight 401.8 lbs 09/28/2025 Height 63 in 09/28/2025 Blood pressure systolic 164 mm Hg 09/28/20 25 Blood pressure diastolic 80 mm Hg 025 BMI 71.17 kg/m2 09/28/2025 Encounters Encounter Location Date Provider Diagnosis [facility] [address] [place] [address] 09/28/2025 Ling Jacobs Type 2 diabetes mellitus without complications E11.9 ; Hypertension I10 and Cold sore B00.1 Assessments Encounter Date Diagnosis (ICD Code) Assessment Notes Treatment Notes Treatment Clinical Notes Section Notes 09/28/2025 Type 2 diabetes mellitus without complications (ICD-10 - E11.9) 09/28/2025Hypertension (ICD-10 - I10)fu one month BP check09/28/2025old sore (ICD-10 - B00.1) Plan Of Treatment Medication Medication Name Sig Start Date Stop Date Notes valACYclovir HCl 1 GM 2 tablet Orally BID; Duration: 1 days 08/18/2024 Metoprolol Succinate ER 25 MG1 tablet Orally Once a day; Duration: 30 days 09/28/2025Treatment Notes Assessment Notes Hypertension fu one month BP chec k Pending Test Test Name Order Date HEMOGLOBIN A1C (GLYCO) 09/28/2025 Next Appt Details Follow Up: 4 Weeks,prn, Reas on: Provider Name:Ling plummer, 10/27/2025 03:30:00 PM, [address] [place], [address], Progress Notes * Desirae ROBLES LDOB:[birth year] (40 yo F)Acc No.[id number]:09/28/2025 Progress Note Patient: Desirae OG :?Ling Jacobs ([facility]), CNPDOB:1985 ???Age:40 Y???Sex:FemaleDate:09/28/2025Phone:[phone]:[address] [place], [place]-[address]Check In:03:53 PM ESTCheck Out:03:51 PM EST Subjective: * Chief Complaints: * 1 . Presents to office alone for 3 month follow up. * HPI: ???General:? needs basement wall fixed, stressing them out did not get A1c, was there and was no order football games keeps her and brother busy cold sore wants antiviral? glorified rice, may make for Thanksgiving, was Dads favorite. * ROS: ???General/Constitutional:?Patient complaining of?stress due to home repairs, upcoming holidays and recent loss of father.?Fever?denies.?Headache?denies.?Weightloss?denies.?Ophthalmologic:?Discharge?denies.?Eye Pain?denies.?Itching and redness?denies.?ENT:?Nasal discharge?denies.?Nasal congestion?denies. Sore throat?denies.?Cardiovascular:?Chest tightness/ heavy pressure?denies.?Rapid heart rate?denies.?Swelling of extremities?denies.?Chest pain?denies.?Respiratory:?Productive cough?denies.?Chest pain?denies.?Cough?denies.?Shortness of breath?denies.?Wheezing?denies.?Gastrointestinal:?Abdominal pain?denies.?Constipation?denies.?Decreased appetite?denies.?Diarrhea?denies.?Nausea?denies.?Vomiting denies.?Genitourinary:?Urinary incontinence?denies.?Painful urination?denies.?Musculoskeletal:?Back pain?denies.?Neck pain?denies.?Muscle aches?denies.?Skin:?Rash?denies.?Skin lesion(s)?psoriasis.? 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 Modified On:03/04/2023 Status:wpfhljezuH00.23Impacted cerumen, bilateral Modified On:03/04/2023 Status:wruffxlckR88.11Acute recurrent frontal sinusitis Modified On:03/04/2023 Status:gfbkayvswG85.9Psoriasis Modified On:03/04/2023 Status:zlcjtyvvbG87Hgkglgstpptx Modified On:03/04/2023 Status:kdfbwzqhuT91.9GERD (gastroesophageal reflux disease) Modified On:03/04/2023 Status:zjyaumwyjM63.5Dyslipidemia Modified On:03/04/2023 Status:huulotnfhF60.9Hyperglycemia Modified On:03/04/2023 Status:ukcbdsckmT47.00Insomnia Modified On:07/24/2023 Status:nfpbfsagaG26.9Vitamin D deficiency Modified On:03/04/2023 Status:omxtxtrqz201.9Seasonal allergic rhinitis Modified On:03/04/2023 Status:iqshfqbcuJ72.01Morbid (severe) obesity due to excess calories Modified On:06/12/2023 Status:pwbsyrwhoA44.8Depression with anxiety Modified On:03/04/2023 Status:ypyzqruenY57.2Seasonal allergic rhinitis Modified On:03/04/2023 Status:sjuzjweycD96.81Dysmetabolic syndrome X Modified On:03/04/2023 Status:gbziuoczlU56.1Hyperinsulinemia Modified On:03/04/2023 Status:rgkqvbcanG19.45BMI 70 and over, adult Modified On:03/04/2023 Status:kdtmfoblfG41.0Panic attack Modified On:03/04/2023 Status:fccsdxeyjB72.0Panic anxiety syndrome Modified On:02/03/2023 Status:wppmlnnwsO42.8Anxiety disorder in conditions classified elsewhere Modified On:08/14/2023 Status:hzcitligwL03.9Anxiety disorder, unspecified Modified On:08/19/2023 Status:kukhmbgmgA35.9Type 2 diabetes mellitus without complications Modified On:09/17/2023 Status:vvmxbrquwC38.65Uncontrolled diabetes mellitus Modified On:06/26/2025 Status:yozoehwqjO68LAS (hypertension) Modified On:08/11/2025 Status:syomosimxU51.1Cold sore Modified On:09/28/2025 Status:confirmed * Medical History: P anic attack, [...] History: w isdom teeth extracted . * Hospitalization/Major Diagno stic Procedure: d ehydration 07/17. * Family History: F ather: alive, diagnosed with Cancer, Diabetes, Hypertension, Heart Disease, Kidney Disease.?Mother: , passed in 2004 from heart disease, diagnosed with Heart Disease. B rother(s): alive. 1 brother(s) . . * Social History: ???Tobacco Use:?Tobacco Use/Smoking?Patient is a?nonsmoker * Medications: T aking Amitriptyline HCl 50 [...] EVERY DAY FOR 30 DAYS , Taking Escitalopram Oxalate 20 MG Tablet TAKE 1 TABLET BY MOUTH EVERY DAY FOR 30 DAYS , Taking glipiZIDE ER 5 MG Tablet Extended Release 24 Hour 1 tablet with food Orally Once a day , Taking Lisinopril 40 MG Tablet TAKE 1 TABLET BY MOUTH EVERY DAY FOR 30 DAYS , Taking metFORMIN HCl 1000 MG Tablet TAKE 1 TABLET BY MOUTH TWICE A DAY WITH A MEAL FOR 90 DAYS , Taking Omeprazole 40 MG Capsule Delayed Release TAKE 1 CAPSULE BY MOUTH EVERY DAY , Taking Ondansetron HCl 4 MG Tablet TAKE 1 TABLET BY MOUTH TWICE A DAY NEEDED , Taking Pen [place] 31G X 6 MM Miscellaneous as directed , Taking Triamcinolone Acetonide 0.1 % Cream APPLY TO AFFECTED AREA TWICE A DAY , Taking Trulicity(Dulaglutide) 0.75 MG/0.5ML Solution Auto-injector INJECT 1 PEN SUBCUTANEOUSLY ONCE PER WEEK DIRECTED , Taking valACYclovir HCl 1 GM Tablet 2 tablet Orally BID , Taking Vitamin D3 50 MCG (2000 UT) Tablet TAKE 2 TABLETS BY MOUTH EVERY DAY , Medication List reviewed and reconciled with the patient * Allergies: N .K.D.A. Objective: * Vitals: W t:401.8lbs, Ht: 63 in, BP:164/80mm Hg, BMI:71.17Index, Ht-cm: 160.02 cm, Wt-k.26 kg. * Examination: ???General Examinations: ?GENERAL APPEARANCE:?alert and oriented, in no acute distress, morbidly obese.?EYES:?conjunctiva normal, sclera non-icteric.?NOSE:?normal external appearance.?LUNGS:?clear to auscultation bilaterally.?CARDIO:?regular rate and rhythm, S1, S2 normal.?MUSCULOSKELETAL:?decreased ROM due to body habitus.?SKIN:?extensive psoriasis plaques.? Assessment: * Assessment: 1.?Type 2 diabetes mellitus without complications - E11.9 (Primary)???2.?Hy pertension - I10???3.?Cold sore - B00.1??? Plan: * Treatment: ?LAB: HEMOGLOBIN A1C (GLYCO)2.?Hypertension? Start Metoprolol Succinate ER Tablet Extended Release 24 Hour, 25 MG, 1 tablet, Orally, Once a day,30 days, 30 Tablet, Refills 5.?? Notes: fu one month BP check ??3.?Cold sore? Refill valACYclovir HCl Tablet, 1 GM, 2 tablet, Orally, BID, 1 days, 4 Tablet, Refills 0.? * Preventive Medicine: ??Screenings/Counseling:?BMI ACTION PLAN?Above Normal BMI Follow-up?Dietary management education, guidance, and counseling See treatment section of progress note for complete details of management plan. * Follow Up: 4 Weeks,prn * * Electronically signed by Ling Jacobs NP, SENIOR ACCOUNTANT.SUPERVISOR P[employer]ER MACHINE.[id number] on 09/29/2025 at 10:43 AM ESTSign off status: CompletedVisit Status:?CHK (Check Out) true * Provider: Luis Jacobs ([facility]), [employer] Date: 11/28/2024 Generated for Printing/Faxing/eTransmitting on:?09/30/2025 12:15 PM EST History and Physical Notes * HPI (History of Present Illness) CategorySub-CategoryDetailNotesCategory NotesGeneral needs basement wall fixed, stressing them out did not get A1c, was there and was no order football games keeps her and brother busy cold sore wants antiviral glorified rice, may make for Thanksgiving, was Dads favorite Examination CategorySub-CategoryDetailNotesCategory NotesGeneral ExaminationsGENERAL APPEARANCE:alert and oriented, in no acute distress, morbidly obeseEYES: conjunctiva normal, sclera non-ictericEARS:NOSE:normal external appearance THROAT:CARDIO:regular rate and rhythm, S1, S2 normalLUNGS:clear to auscultation bilaterallyABDOMEN:SKIN:extensive psoriasis plaquesBACK:MUSCULOSKELETAL: decreased ROM due to body habitusLYMPH NODES:
--- OUTSIDE RECORDS SUMMARY | 2025-09-30 12:14 | XMS_ITS | CCD ---
Author Organization [facility] Care Team Providers Care Burner Technician Name Role Phone LING FULLER Attending Unavailable LING FULLER Consulting Unavailable LING FULLER Primary Care Unavailable LING FULLER Admitting Unavailable Ling Fuller CNP Primary Care Provider JENNIFER TYSON Admitting Unavailable NAOMIE MCKENNA Attending Unavailable Medications Current Medications MedicationDrug Class(es)DatesSig (Normalized)Sig (Original)0.5 ml dulaglutide 1.5 mg/ml auto-injector (1 source)GLP-1 Receptor Agonistinject 0.5 mL by subcutaneous injection every weekDulaglutide (Trulicity) 0.75 MG/0.5ML Solution Auto-injector injection Inject 0.5 mL under the skinonce a week. ActiveglipiZIDE er 5 mg 24 hr extended release oral tablet (1 source)Sulfonylureatake 1 tablet by mouth once dailyglipiZIDE 5 MG tablet XL Take 1 tablet by mouth daily. ActivemetFORMIN hydrochloride 1000 mg oral tablet (3 sources)BiguanideStart: 08-07-2025 End: 38-34-5608hfvd 1 tablet by mouth twice dailymetFORMIN 1000 MG tablet Take 1 tablet by mouth 2 times daily. 60 tablet 2 08/07/2025 11/05/2025 ActiveStart: 06-07-2025 End: 12-40-8439mbxc 1 tablet by mouth twice dailymetFORMIN 500 MG tablet Take 1 tablet by mouth 2 times daily. 06/07/2025 08/07/2025 Discontinuedomeprazole 40 mg delayed release oral capsule (2 sources)Proton Pump InhibitorStart: 18-37-6620fzsd 1 capsule by mouth once dailyomeprazole [address] capsule Take 1 capsule by mouth daily. 07/10/2025 Active End: 50-35-5696xtho 1 capsule by mouth once dailyomeprazole [address] Take 1 capsule by mouth daily. 08/06/2025 Discontinued Completed/Discontinued Medications MedicationDrug Class(es)DatesSig (Normalized)Sig (Original)acetaminophen 325 mg oral tablet (1 source)Start: 08-06-2025 End: 44-01-1295zlfp 1 tablet by mouth every six hours as kujgud321 mg, Oral, EVERY 6 HOURS NEEDED, Starting on 08/06/25 at 1514, Until Thu08/07/25 at 1826, Mild Pain, Oral temp > 100.4 F, Headaches, Alternate with ibuprofen if ordered, Maximum dose of acetaminophen is 4000 mg from all sources in 24 hours or 2000 mg from all sources in patients with cirrhosis in 24 hours.amitriptyline hydrochloride 25 mg oral tablet (2 sources)Tricyclic AntidepressantStart: 08-06-2025 End: 85-35-0285bvhs 50 mg by mouth once daily at lrarycv76 mg, Oral, DAILY AT BEDTIME, First dose on Thu08/06/25 at 2100, Until DiscontinuedStart: 07-17-2025 take 1 tablet by mouth at bedtimeAmitriptyline 50 MG tablet Take 1 tablet by mouth at bedtime. 07/17/2025 Activeatorvastatin 40 mg oral tablet (3 sources)HMG-CoA Reductase InhibitorStart: 06-13-2025 End: 05-37-2948sqex 40 mg by mouth once daily40 mg, Oral, DAILY, First dose on Thu08/07/25 at 0900, Until Discontinued End: 38-97-3795hott 1 tablet by mouth once dailyAtorvastatin 20 MG tablet Take 1 tablet by mouth daily. 08/06/2025 DiscontinuedbusPIRone hydrochloride 15 mg oral tablet (2 sources)Start: 08-06-2025 End: 79-86-9758wlkb 15 mg by mouth twice daily15 mg, Oral, 2 TIMES DAILY, First dose on Thu08/06/25 at 1700, Until Discontinuedcalcium chloride 0.0014 meq/ml / potassium chloride 0.004 meq/ml / sodium chloride 0.103 meq/ml / sodium lactate 0.028 meq/ml injectable solution (3 sources)Start: 08-06-2025 End: ,000 mL, Intravenous, ONCE, 1 dose, On Thu08/06/25 at 0200, Fluid Boluscetirizine hydrochloride 10 mg oral tablet (2 sources)Histamine-1 Receptor AntagonistStart: 07-13-2025 End: 71-19-7607pkjj 10 mg by mouth once daily10 mg, Oral, DAILY, First dose on Thu08/07/25 at 0900, Until Discontinuedcholecalciferol 0.05 mg oral tablet (2 sources)Vitamin DStart: 07-17-2025 End: 65-17-7532rjls 4000 [IU] by mouth once daily4,000 Units, Oral, DAILY, First dose on Thu08/07/25 at 0900, Until DiscontinuedEnoxaparin Sodium (LOVENOX) injection 60 mg (1 source)Start: 08-07-2025 End: 95-05-1488Inilyjtlgc Sodium (LOVENOX) injection 60 mgescitalopram 20 mg oral tablet (3 sources)Serotonin Reuptake InhibitorStart: 07-07-2025 End: 36-76-3560lufl 20 mg by mouth once daily20 mg, Oral, DAILY, First dose on Thu08/07/25 at 0900, Until Discontinued End: 94-18-7453podw 1 tablet by mouth once dailyEscitalopram 10 MG tablet Take 1 tablet by mouth daily. 08/06/2025 DiscontinuedguaiFENesin 20 mg/ml oral solution (1 source)Start: 08-06-2025 End: 12-51-7923tuir 400 mg by mouth every six hours as needed1 ml ketorolac tromethamine 15 mg/ml cartridge (1 source)Nonsteroidal Anti-inflammatory Drug, Cyclooxygenase InhibitorStart: 08-06-2025 End: 40-63-606580 mg, Intravenous, ONCE, 1 dose, On Thu08/06/25 at 0230 lisinopril 10 mg oral tablet (3 sources)Angiotensin Converting Enzyme InhibitorStart: 08-07-2025 End: 67-59-5896thhp 40 mg by mouth once daily40 mg, Oral, DAILY, First dose on Thu08/07/25 at 0900, Until DiscontinuedStart: 84-93-4350uuto 1 tablet by mouth once dailyLisinopril 40 MG tablet Take 1 tablet by mouth daily. 07/13/2025 Active End: 88-64-6375rtnj 2 tablets by mouth once dailyLisinopril 20 MG tablet Take 2 tablets by mouth daily. 08/06/2025 Discontinuedmelatonin 3 mg oral tablet (1 source)Start: 08-06-2025 End: 91-44-6264vlbtdwwjnet 4 mg oral tablet (3 sources)Serotonin-3 Receptor AntagonistStart: 08-06-2025 End: 56-90-5346avll 1 dose by mouth once4 mg, Oral, ONCE, 1 dose, On 08/06/25 at 0145Start: 07-16-2025 End: 72-03-2086nhid 1 tablet by mouth every six hours as neededpantoprazole 40 mg delayed release oral tablet (1 source)Proton Pump InhibitorStart: 08-07-2025 End: 76-21-6377oade 40 mg by mouth once daily40 mg, Oral, DAILY, First dose on 08/07/25 at 0900, Until Discontinued, Swallow whole; do not crush or chew., Indications: Continuation of Home Therapypolyethylene glycol 3350 80408 mg powder for oral solution (1 source)Osmotic LaxativeStart: 08-06-2025 End: 27-10-9893984 ml sodium chloride 9 mg/ml injection (1 source)Start: 08-06-2025 End: 08-07-2025 Problems Problem ClassificationProblemDateDocumented DateEpisodic/ChronicCardiac dysrhythmias (2 sources)Sinus tachycardia; Translations: [Tachycardia, unspecified]Onset: [id number] mellitus with complications (2 sources)Hyperglycemia due to type 2 diabetes mellitus; Translations: [Type 2 diabetes mellitus with hyperglycemia]Onset: [id number] mellitus without complication (3 sources)Hyperglycemia; Translations: [Hyperglycemia, unspecified]Onset: 850882-31-3964XcmlachdQsdcnxiue hypertension (4 sources)Essential (primary) hypertension; Translations: [ESSENTIAL PRIMARY HYPERTENSION]Onset: 92-80-8087FteqcwqXacbi and electrolyte disorders (3 sources)Dehydration; Translations: [Dehydration]Onset: EpisodicOther inflammatory condition of skin (2 sources)Psoriasis; Translations: [Psoriasis, unspecified]60-26-1685Wkokgrc Other inflammatory condition of skin (2 sources)Psoriasis, unspecified; Translations: [Psoriasis, unspecified]Onset: 92-10-0997Hsvzrrq Results Test NameValueInterpretationReference RangeFacilityCBC,PLATELETSon 08-07-2025 Erythrocyte distribution width (RBC) [Ratio]14.0 %10.8 - 14.9 %The Jewish HospitalHematocrit (Bld) [Volume fraction]38.2 %34.9 - 44.3 %[facility] HospitalHemoglobin (Bld) [Mass/Vol]12.6 g/dL11.4 - 15.2 g/dLThe Jewish HospitalInterpretation and review of laboratory resultsNormMercy Health St. Joseph Warren HospitalH (RBC) [Entitic mass]27.7 pg25.9 - 33.9 pgThe Jewish HospitalMCHC (RBC) [Mass/Vol]33.0 g/dL31.4 - 35.9 g/dLThe Jewish HospitalMCV (RBC) [Entitic vol]84.0 fL79.6 - 97.7 [facility] HospitalPlatelet mean volume (Bld) [Entitic vol]11.5 fL8.5 - 12.2 [facility] HospitalPlatelets (Bld) [#/Vol]235 10*3/uL150 - 393 K/[facility] HospitalRBC (Bld) [#/Vol] 4.55 10*6/[facility] HospitalWBC (Bld) [#/Vol]5.54 10*3/uL3.99 - 11.19 K/[facility] HospitalOSMercy HealthHematocrit (Bld) [Volume fraction]38.2 %Geaxjn19.9-44.3Cleveland ClinicComment on above:Performed By: #### BHCG, BETA-HYDROXYBUTYRATE, SERUM #### [facility] (DEFAULT) [address] [address]Bkzegdtemw (Bld) [Mass/Vol]12.6 g/lUIjvypu77.4-15.2C[facility] ClinicComment on above:Performed By: #### BHCG, BETA- HYDROXYBUTYRATE, SERUM #### [facility] (DEFAULT) [address] [place] [address]SEM (RBC) [Entitic vol]84.0 pFYilubk62.6-97.7C[facility] ClinicComment on above:Performed By: #### BHCG, BETA- HYDROXYBUTYRATE, SERUM #### [facility] (DEFAULT) [address] [place] [address] 246[address]Fhdu Cell Hgb27.7 isXoeczl39.9-33.9C[facility] ClinicComment on above:Performed By: #### BHCG, BETA- HYDROXYBUTYRATE, SERUM #### [facility] (DEFAULT) [address] [place] [address]64[address]Wbam Cell Hgb Conc33.0 g/eWOsocpm18.4-35.9C[facility] ClinicComment on above:Performed By: #### BHCG, BETA- HYDROXYBUTYRATE, SERUM #### [facility] (DEFAULT) [address] [place] [address]Gllkckow mean volume (Bld) [Entitic vol]11.5 fLNormal8.5-12.2 [facility] ClinicComment on above:Performed By: #### BHCG, BETA-HYDROXYBUTYRATE, SERUM #### [facility] (DEFAULT) [address] [place] [address]Kafribkrw (Bld) [#/Vol]235 10*3/mIGtueen571-864YghuCleveland ClinicComment on above:Performed By: #### BHCG, BETA- HYDROXYBUTYRATE, SERUM #### [facility] (DEFAULT) [address] [place] [address]38[address]RBQ (Bld) [#/Vol]4.55 10*6/uLNormal3.91-5.04C[facility] ClinicComment on above:Performed By: #### BHCG, BETA- HYDROXYBUTYRATE, SERUM #### [facility] (DEFAULT) [address] [place], [place] [address]LPO Rwlakmitwozo97.0 %Rrdigg48.8-14.9C[facility] ClinicComment on above:Performed By: #### BHCG, BETA- HYDROXYBUTYRATE, SERUM #### [facility] (DEFAULT) [address] [place], [place] [address]VZB (Bld) [#/Vol]5.54 10*3/uLNormal3.99-11.19C[facility] ClinicComment on above:Performed By: #### BHCG, BETA- HYDROXYBUTYRATE, SERUM #### [facility] (DEFAULT) [address] [place], [place] [address]TFXS 7 (LYTES,BUN,CREA,GLUC)on 26-82-1367Ivgri gap [Moles/Vol] 17 mmol/L7 - 17 mmol/[facility] HospitalChloride [Moles/Vol]103 mmol/L98 - 108 mmol/[facility] HospitalCO2 [Moles/Vol]25 mmol/L21 - 31 mmol/[facility] HospitalCreatinine [Mass/Vol]0.49 mg/dLLow0.50 - 1.20 mg/dLThe Jewish HospitaleGFR, CKD-EPI, Female- PINMercy Health Springfield Regional Medical CenterComment on above:Reported eGFR is based on the CKD-EPI 2020 equation using creatinine, age, and sex.Glucose [Mass/Vol]215 mg/eSAsic81 - 179 mg/dLThe Jewish HospitalInterpretation and review of laboratory resultsAbnoWilson Memorial HospitalOsmolality Calc [Osmolality]301[facility] HospitalPotassium [Moles/Vol]3.9 mmol/L3.5 - 5.0 mmol/Holzer Hospitalodium [Moles/Vol] 141 mmol/L135 - 145 mmol/[facility] HospitalUrea nitrogen [Mass/Vol]10 mg/dL7 - 25 mg/dLThe Jewish HospitalUrea nitrogen/Creatinine [Mass ratio] 20 mg/mgOSU Parkwood HospitalOSU Parkwood HospitalAnion gap [Moles/Vol] 17 mmol/LNormal7-17C[facility] ClinicComment on above: Performed By: #### CHM7 #### [facility] (DEFAULT) [address] [place] [address] 35824Lxziifnk [Moles/Vol]103 mmol/WUaltrx09-996ZyqyCleveland ClinicComment on above:Performed By: #### CHM7 #### [facility] (DEFAULT) [address] [place] [address] 57074SN0 [Moles/Vol]25 mmol/NGajquu19-64OectCleveland ClinicComment on above:Performed By: #### CHM7 #### [facility] (DEFAULT) [address] [place] [address] 33684Xpihgzsemt [Mass/Vol]0.49 mg/dLLow0.50-1.20C[facility] ClinicComment on above:Performed By: #### CHM7 #### [facility] (DEFAULT) [address] [place] [address] 56238aXOG, CKD-EPI, Female>Normal>=60Cleveland ClinicComment on above:Result Comment: Reported eGFR is based on the CKD-EPI 2020 equation using creatinine, age, and sex.Performed By: #### CHM7 #### [facility] (DEFAULT) [address] [place] [address]Pxblnmf [Mass/Vol]215 mg/dLHighNonfastin-179 mg/dL; Fastin-99C[facility] ClinicComment on above: Performed By: #### CHM7 #### [facility] (DEFAULT) [address] [place] [address] 264[address]Iyoziizqxz [Osmolality]301 mosm/wnSediuv863-397NxqsCleveland ClinicComment on above:Performed By: #### CHM7 #### [facility] (DEFAULT) [address] [place] [address] 35692Omsmiktoy [Moles/Vol]3.9 mmol/LNormal3.5-5.0C[facility] ClinicComment on above:Performed By: #### CHM7 #### [facility] (DEFAULT) [address] [place], [place] [address]Ypfodl [Moles/Vol]141 mmol/SPxkqyw883-521BjimCleveland ClinicComment on above:Performed By: #### CHM7 #### [facility] (DEFAULT) [address] [place] [address] 43[address]Bdfo nitrogen [Mass/Vol]10 mg/dLNormal7-25C[facility] ClinicComment on above:Performed By: #### CHM7 #### [facility] (DEFAULT) [address] [place] [address] 515[address]Dhhb nitrogen/Creatinine [Mass ratio]20 mg/mgNoMetroHealth Cleveland Heights Medical CenterComment on above:Performed By: #### CHM7 #### [facility] (DEFAULT) [address] [place] [address]JEUBO MICROon 14-87-6665CGSThe Jewish HospitalHEMOGLOBIN A1Con 68-08-6123Sxhbvuu glucose Estimated from glycated hemoglobin (Bld) [Mass/Vol]260 mg/dLThe Jewish HospitalHbA1c (Bld) [Mass fraction]10.7 % High4.7 - 5.6 %[facility] HospitalInterpretation and review of laboratory resultsAbnoWilson Memorial HospitalOSMercy HealthABORH TYPE RECONFIRMATIONon 02-58-1186RGU/RH(D) TYPEAB POSThe Jewish HospitalOSMercy HealthABO/RH(D) TYPEAB POSCleveland Clinic Fairview HospitalComment on above:Performed By: #### BHCG, BETA-HYDROXYBUTYRATE, SERUM #### [facility] (DEFAULT) [address] [place] [address] 67[address]PBON-FXNCTTCXAMBRZIC, SERUMon 02-98-3974Csff hydroxybutyrate [Moles/Vol]0.56 mmol/LHighNINF - 0.27 mmol/[facility]OSPITALU Parkwood HospitalComment on above:Beta-hydroxybutyrate >= 3.0 mmol/L is indicative of ketosis.Interpretation and review of laboratory resultsAbParkwood Hospital This test has not been cleared or approved by the FDA. The laboratory is regulated under CLIA as qualified to perform high-complexity testing. This test is used for clinical purposes. It should not be regarded as investigational or for research.[facility] CenterCALCIUMon 12-66-9054Qbyegkc [Mass/Vol]9.9 mg/dL8.6 - 10.5 mg/dLThe [facility] Interpretation and review of laboratory resultsNoSeton Medical CenterEXTRA LIGHT BLUE TOPon 94-78-5149IKBThe Jewish HospitalGLUCOSE POCon 00-96-8722Mypbbsm [Mass/Vol]206 mg/aMMosi80 - 179 mg/dLThe Jewish HospitalInterpretation and review of laboratory resultsAbParkwood HospitalPOC Sample TypeCAPBLThe Jewish HospitalTest performed at address of the patient encounter.[facility] Medical CenterHCG ( test) QlOrdered By: Mohamud Sahrp on 40-73-8912Twjq HCG ( test) QlNegativeNegativeThe Jewish HospitalInterpretation and review of laboratory resultsNoAnaheim Regional Medical CenterHEPATIC FUNCTION PANELon 81-52-4100Zbumpch [Mass/Vol]4.3 g/dL3.5 - 5.0 g/dLThe Jewish HospitalALP [Catalytic activity/Vol]98 U/L32 - 126 U/[facility] HospitalALT [Catalytic activity/Vol]35 U/L9 - 48 U/[facility] HospitalAST [Catalytic activity/Vol]25 U/L10 - 39 U/[facility] HospitalBilirubin [Mass/Vol]0.5 mg/dLNINF - 1.5 mg/dLThe [facility] Bilirubin.direct [Mass/Vol]mg/dLNINF - 0.3 mg/dLThe Jewish HospitalProtein [Mass/Vol]7.7 g/dL6.4 - 8.3 g/dLThe Jewish HospitalHIGH SENSITIVITY TROPONIN I - SINGLE ORDERon 67-79-4025Zieralgmwunlfo and review of laboratory resultsNoWilson Memorial HospitalTroponin I.cardiac High sensitivity method [Mass/Vol]3 ng/LNINF - 34 ng/[facility] HOSPITALU Summit Oaks Hospitalhs-Troponin I3 ng/LNormal<34OhSumma Health Akron Campus Comment on above:Order Comment: Acute Coronary Syndrome (ACS): Initial Evaluation and Management:[email or web address]%20Syndrome.pdf#search=[email or web address] oponinPerformed By: #### BHCG, BETA-HYDROXYBUTYRATE, SERUM #### [facility] (DEFAULT) [address] [address]Uwxglfujzgrdpv and review of laboratory resultsNoWilson Memorial HospitalTroponin I.cardiac High sensitivity method [Mass/Vol]3 ng/L NINF - 34 ng/[facility] HospitalLACTATE, WHOLE BLOODon 67-98-3643Togyondeoxevzy and review of laboratory resultsAbnoWilson Memorial HospitalLactate [Moles/Vol]1.9 mmol/LHigh0.5 - 1.6 mmol/[facility] HospitalLactate, Whole Blood1.9 mmol/LHigh 0.5-1.6C[facility] ClinicComment on above:Performed By: #### BHCG, BETA-HYDROXYBUTYRATE, SERUM #### [facility] (DEFAULT) [address] [place] [address] 47[address]SROQJZgk 19-97-3144Jchodj [Catalytic activity/Vol]16 U/L11 - 82 U/[facility] HospitalNo Panel Informationon 02-26-0311Lttniqskjymxkm and review of laboratory resultsNormParkview HealthOSMercy HealthPLATELET COUNTon 99-01-4911Hharkokvbkfrfg and review of laboratory resultsNormParkview HealthPlatelet mean volume (Bld) [Entitic vol] 11.1 fL8.5 - 12.2 [facility] HospitalPlatelets (Bld) [#/Vol]239 10*3/uL 150 - 393 K/uLOSU Parkwood HospitalOSMercy HealthPlatelet mean volume (Bld) [Entitic vol]11.1 fLNormal8.5-12.2C[facility] ClinicComment on above:Performed By: #### BHCG, BETA-HYDROXYBUTYRATE, SERUM #### [facility] (DEFAULT) [address] [place], [place] [address]Xrhhgnemv (Bld) [#/Vol]239 10*3/rAFkvxmq380-973QljzCleveland ClinicComment on above:Performed By: #### BHCG, BETA- HYDROXYBUTYRATE, SERUM #### [facility] (DEFAULT) [address] [place], [place] [address]CDC VENOUS BLOOD GASon 48-56-0806Bvqi excess Calc (Bld) [Moles/Vol]-0.3000 mmol/L-3.0 - 3.0 mmol/[facility] Calcium.ionized (Bld) [Mass/Vol]4.91 mg/dL4.60 - 5.30 mg/dLThe Jewish HospitalCarboxyhemoglobin (Bld) [Mass fraction]1.8 %HighNINF - 1.5 %[facility] HospitalCO2 (Bld) [Partial pressure]42 mm[Hg][facility] Glucose [Mass/Vol]369 mg/wLJezg68 - 179 mg/dLThe Jewish HospitalHCO3 (Bld) [Moles/Vol]25 mmol/L22 - 29 mmol/[facility] HospitalHematocrit (Bld) [Volume fraction]44 %34 - 46 %[facility] HospitalHemoglobin (Bld) [Mass/Vol]14.7 g/dL11.4 - 15.2 g/dLThe Jewish HospitalInterpretation and review of laboratory resultsAbnormalOSU Parkwood HospitalLactate [Moles/Vol] 2.9 mmol/LHigh0.5 - 1.6 mmol/[facility] HospitalComment on above:Lactate results >/= 2.0 mmol/L should be followed up with a measurement 2 hours later for patients with suspicion of sepsis.Methemoglobin (Bld) [Mass fraction]0.8 % NINF - 1.5 %OSMercy HealthOxygen (Bld) [Partial pressure]66 mm[Hg]mm HgOSMercy HealthComment on above:Venous pO2 is not recommended for the evaluation of oxygen status, clinical correlation is recommended.Oxygen saturation in Blood93 %High70 - 80 %[facility] HospitalOxyhemoglobin91 % Low94 - 98 %[facility] HospitalpH (Bld)7.38 [pH]7.32 - 7.43The [facility] HospitalPotassium [Moles/Vol]4.5 mmol/L3.5 - 5.0 mmol/Holzer Hospitalodium [Moles/Vol]133 mmol/GSrs685 - 145 mmol/[facility] Specimen source Nom (Unsp spec)VenousOSMercy HealthTest performed at address of the patient encounter.[facility] HospitalOS[facility] HospitalPortable XR Chest Viewson 48-56-7687YPOOISTQOT: No acute cardiopulmonary disease RADIOLOGY EXAM: XR CHEST 1 VIEW PORTABLE, 08/06/2025 01:33 AM COMPARISON: None CLINICAL INDICATIONS: epigastric pain/chest pain FINDINGS: (Adequate technique) Implanted Devices: None Thorax: Normal cardiomediastinal silhouette. Lungs are clear. No definite pleural effusion or pneumothorax. Brad Banuelos MD - 08/06/2025 EXAM: XR CHEST 1 VIEW PORTABLE, 08/06/2025 01:33 AM COMPARISON: None CLINICAL INDICATIONS: epigastric pain/chest pain FINDINGS: (Adequate technique) Implanted Devices: None Thorax: Normal cardiomediastinal silhouette. Lungs are clear. No definite pleural effusion or pneumothorax. IMPRESSION IMPRESSION: No acute cardiopulmonary disease The [facility] HospitalRadiology Study observation (narrative)The [facility] HospitalPortable XR Chest ViewsOrdered By: Brad Farmer on 64-07-4354XIKMercy Health Work Phone: TSHon 90-68-3507Lxdexthxlwcfth and review of laboratory resultsNoWilson Memorial HospitalTS Qn3.739 m[IU]/LOSU [facility] HospitalOSMercy HealthTSH3.739 uIU/mLNormal0.550-4.780C[facility] ClinicComment on above:Performed By: #### BHCG, BETA-HYDROXYBUTYRATE, SERUM #### [facility] (DEFAULT) [address] [address]TQTB AND SCREENon 48-64-3415ONS/RH(D) TYPEAB [facility] Hospitalpecimen Qssbmutspd94/17/2025 23:59[facility] HospitalOSMercy HealthABO/RH(D) TYPEAB POSCleveland Clinic Fairview HospitalComment on above:Performed By: #### BHCG, BETA-HYDROXYBUTYRATE, SERUM #### [facility] (DEFAULT) [address] [address]Jlqkadjy Eeeqhnevct01/17/2025 23:59[facility] Fairview HospitalComment on above:Performed By: #### BHCG, BETA- HYDROXYBUTYRATE, SERUM #### [facility] (DEFAULT) [address] [address]LQYGALKZPJ REFLEX TO CULTURE PERFORMABLEOrdered By: Abbe Tavera on 80-56-3878Yoetzczvla (U)ClearClearOTrinity Health System East CampusBacteria LM Ql (Urine sed)PRESENTAbnormalABSENTOSU Parkwood HospitalColor (U)YellowYellow [facility] HospitalEpithelial cells.squamous LM Ql (Urine sed)3-5/hpf = 1+ 0-2/hpf, 3-5/hpf = 1+[facility] HospitalGlucose Test strip (U) [Mass/Vol] 100 mg/dLAbnormalNegativeThe Jewish HospitalInterpretation and review of laboratory resultsAbnormalOSU Parkwood HospitalKetones (U) [Mass/Vol] NegativeNegativeOSU [facility] HospitalLeukocyte esterase Test strip Ql (U) SmallAbnormalNegativeOSU Parkwood HospitalNitrite Ql (U)NegativeNegativeOSMercy HealthpH (U)8.0 [pH]Abnormal5.0 - 7.0[facility] Protein (U) [Mass/Vol]30 mg/dLAbnormalNegativeOSMercy HealthRBC (U) [#/Vol]TraceAbnormalNegativeOSU Parkwood HospitalRBC LM.HPF (Urine sed) [#/Area]3-5AbnormalOSU Wilson Memorial Hospitalpecific gravity (U) [Rel density] 1.0201.001 - 1.035OS[facility] HospitalUrobilinogen (U) [Mass/Vol]0.2 E.U./dL0.2 E.U/dL, 1.0 E.U/dLOSU Parkwood HospitalWBC LM.HPF (Urine sed) [#/Area]0 - 5[facility] HospitalOSU [facility] HospitalURINALYSIS REFLEX TO CULTURE PERFORMABLEon 11-70-9256Gmvpjftfvz (U)ClearNoalCUniversity Hospitals Cleveland Medical CenterComment on above:Order Comment: For indwelling catheters, specimen collection is acceptable on catheter day 1 and 2 only. ? Performed By: #### BHCG, BETA-HYDROXYBUTYRATE, SERUM #### [facility] (DEFAULT) [address] [place], [place] [address]HjqhgsikHTTMXVUPjzenxtzBAXLOGPlejCrystal Clinic Orthopedic CenterComment on above:Order Comment: For indwelling catheters, specimen collection is acceptable on catheter day 1 and 2 only. ?Performed By: #### BHCG, BETA-HYDROXYBUTYRATE, SERUM #### [facility] (DEFAULT) [address] [place] [address]Ebron UrineTraceAbnoGrant HospitalComment on above:Order Comment: For indwelling catheters, specimen collection is acceptable on catheter day 1 and 2 only. ?Performed By: #### BHCG, BETA-HYDROXYBUTYRATE, SERUM #### [facility] (DEFAULT) [address] [place] [address] 18[address]Dpynt (U)YellowNormalYellowCleveland ClinicComment on above:Order Comment: For indwelling catheters, specimen collection is acceptable on catheter day 1 and 2 only. ?Performed By: #### BHCG, BETA-HYDROXYBUTYRATE, SERUM #### [facility] (DEFAULT) [address] [place] [address] 87[address]Fqbskgi Ql (U)100 mg/dLAbSelect Medical OhioHealth Rehabilitation HospitalComment on above:Order Comment: For indwelling catheters, specimen collection is acceptable on catheter day 1 and 2 only. ?Performed By: #### BHCG, BETA-HYDROXYBUTYRATE, SERUM #### [facility] (DEFAULT) [address] [place] [address]Jcfzqjt Ql (U)NegativeNormalOhioHealth Arthur G.H. Bing, MD, Cancer CenterComment on above:Order Comment: For indwelling catheters, specimen collection is acceptable on catheter day 1 and 2 only. ?Performed By: #### BHCG, BETA-HYDROXYBUTYRATE, SERUM #### [facility] (DEFAULT) [address] [place] [address]Godqbubbh esterase Test strip Ql (U)SmallAbnoGrant HospitalComment on above:Order Comment: For indwelling catheters, specimen collection is acceptable on catheter day 1 and 2 only. ?Performed By: #### BHCG, BETA-HYDROXYBUTYRATE, SERUM #### [facility] (DEFAULT) [address] [place] [address] 41291Tkvmaevf UrineNegativeNormalNegativeCleveland ClinicComment on above:Order Comment: For indwelling catheters, specimen collection is acceptable on catheter day 1 and 2 only. ?Performed By: #### BHCG, BETA-HYDROXYBUTYRATE, SERUM #### [facility] (DEFAULT) [address] [place] [address] 50591pK (U)8.0 [pH]Abnormal5.0-7.0Cleveland ClinicComment on above:Order Comment: For indwelling catheters, specimen collection is acceptable on catheter day 1 and 2 only. ?Performed By: #### BHCG, BETA-HYDROXYBUTYRATE, SERUM #### [facility] (DEFAULT) [address] [place] [address] 25281Gurnyhq Urine30 mg/dLAbnormalNegativeCleveland ClinicComment on above:Order Comment: For indwelling catheters, specimen collection is acceptable on catheter day 1 and 2 only. ?Performed By: #### BHCG, BETA-HYDROXYBUTYRATE, SERUM #### [facility] (DEFAULT) [address] [place] [address] 21456QRA Cwfqi9-7Cqxyjvhs2-7JxpwCleveland ClinicComment on above:Order Comment: For indwelling catheters, specimen collection is acceptable on catheter day 1 and 2 only. ?Performed By: #### BHCG, BETA-HYDROXYBUTYRATE, SERUM #### [facility] (DEFAULT) [address] [place] [address] 08627Saawemhp Bethany Urine1.634Nwmylg6.001-1.035Cleveland ClinicComment on above:Order Comment: For indwelling catheters, specimen collection is acceptable on catheter day 1 and 2 only. ? Performed By: #### BHCG, BETA-HYDROXYBUTYRATE, SERUM #### [facility] (DEFAULT) [address] [place] [address] 89945Zgihzosv/Epithelial Cells, Urine3-5/hpf = 1+Normal0-2/hpf, 3- 5/hpf = 1+Cleveland ClinicComment on above:Order Comment: For indwelling catheters, specimen collection is acceptable on catheter day 1 and 2 only. ?Performed By: #### BHCG, BETA-HYDROXYBUTYRATE, SERUM #### [facility] (DEFAULT) [address] [place] [address] 59818Fcjfhmbgdbql Urine0.2 E.U./dLNormal0.2 E.U/dL, 1.0 E.U/dLCleveland ClinicComment on above:Order Comment: For indwelling catheters, specimen collection is acceptable on catheter day 1 and 2 only. ?Performed By: #### BHCG, BETA-HYDROXYBUTYRATE, SERUM #### [facility] (DEFAULT) [address] [place] [address] 76083YTR Urine0 - 5Ikwepw8 - 5Cleveland ClinicComment on above:Order Comment: For indwelling catheters, specimen collection is acceptable on catheter day 1 and 2 only. ?Performed By: #### BHCG, BETA-HYDROXYBUTYRATE, SERUM #### [facility] (DEFAULT) [address] [place] [address] 34916TS CHEST 1 VIEW PORTABLEon [id number] CHEST 1 VIEW PORTABLE EXAM: XR CHEST 1 VIEW PORTABLE, 08/06/2025 01:33 AM COMPARISON: None CLINICAL INDICATIONS: epigastric pain/chest pain FINDINGS: (Adequate technique) Implanted Devices: None Thorax: Normal cardiomediastinal silhouette. Lungs are clear. No definite pleural effusion or pneumothorax. IMPRESSION: No acute cardiopulmonary disease NormalCleveland ClinicBETA HCG, QUAL, BLOODon [id number] (Qual) SerumNegativeNormalNegativeCleveland Clinic Comment on above:Performed By: #### BHCG, BETA-HYDROXYBUTYRATE, SERUM #### [facility] (DEFAULT) [address] [place] [address] 15010URJI-BTYJLAMOGSMCVLL, SERUMon 82-96-9819Iglt Hydroxybutyrate 0.56 mmol/LHigh<0.27Cleveland ClinicComment on above: Order Comment: This test has not been cleared or approved by the FDA. The laboratory is regulated under CLIA as qualified to perform high-complexity testing. This test is used for clinical purposes. It should not be regarded as investigational or for research.Result Comment: Beta-hydroxybutyrate >= 3.0 mmol/L is indicative of ketosis.Performed By: #### BHCG, BETA-HYDROXYBUTYRATE, SERUM #### [facility] (DEFAULT) [address] [address]LIOGRWZlc 81-06-2955Lmeammu [Mass/Vol]9.9 mg/dLNormal8.6-10.5 Cleveland ClinicComment on above:Performed By: #### LIPA, HFP, CA, LABHSTI1, MGO, CHM7, IPB #### [facility] (DEFAULT) [address] [place] [address] 44329KZZ AND ELECTRONIC DIFFon [id number] (Bld) [#/Vol] 0.04 10*3/uL0.00 - 0.15 K/uLThe Jewish HospitalBasophils/100 WBC (Bld)0.5 %[facility] HospitalDifferential cell count method Nom (Bld)Electronic DifferentialThe Jewish HospitalEosinophils (Bld) [#/Vol]0.08 10*3/uL0.00 - 0.42 K/uLThe Jewish HospitalEosinophils/100 WBC (Bld)0.9 %[facility] HospitalErythrocyte distribution width (RBC) [Ratio]14.0 %10.8 - 14.9 %[facility] HospitalHematocrit (Bld) [Volume fraction]43.2 %34.9 - 44.3 %[facility] HospitalHemoglobin (Bld) [Mass/Vol]14.6 g/dL11.4 - 15.2 g/dLThe Jewish HospitalImmature granulocytes (Bld) [#/Vol]0.04 10*3/uLNINF - 0.08 K/[facility] HospitalImmature granulocytes/100 WBC (Bld)0.5 %[facility] HospitalInterpretation and review of laboratory resultsAbnormParkview HealthLymphocytes (Bld) [#/Vol]1.53 10*3/uL1.16 - 3.51 K/[facility] HospitalLymphocytes/100 WBC (Bld)18.1 %[facility] CenterH (RBC) [Entitic mass]27.9 pg25.9 - 33.9 pgDayton VA Medical CenterHC (RBC) [Mass/Vol]33.8 g/dL31.4 - 35.9 g/dLThe Jewish HospitalMCV (RBC) [Entitic vol]82.6 fL79.6 - 97.7 [facility] HospitalMonocytes (Bld) [#/Vol]0.27 10*3/uL0.22 - 0.87 K/[facility] HospitalMonocytes/100 WBC (Bld)3.2 %[facility] HospitalNeutrophils (Bld) [#/Vol]6.50 10*3/uL1.64 - 7.28 K/[facility] HospitalNucleated RBC/100 WBC (Bld) [Ratio]0.0 %NINMercy Health Springfield Regional Medical CenterPlatelet mean volume (Bld) [Entitic vol]11.4 fL8.5 - 12.2 [facility] HospitalPlatelets (Bld) [#/Vol]263 10*3/uL150 - 393 K/[facility] HospitalRBC (Bld) [#/Vol]5.23 10*6/uLHighThe [facility] Hospital Segmented neutrophils/100 WBC (Bld)76.8 %[facility] HospitalWBC (Bld) [#/Vol]8.46 10*3/uL3.99 - 11.19 K/[facility] CenterBasophils (Bld) [#/Vol]0.04 10*3/uLNormal0.00-0.15Cleveland ClinicComment on above:Performed By: #### BHCG, BETA- HYDROXYBUTYRATE, SERUM #### [facility] (DEFAULT) [address] [place] [address] 59171Mhzwroixf/100 WBC (Bld)0.5 %NormalCleveland ClinicComment on above:Performed By: #### BHCG, BETA-HYDROXYBUTYRATE, SERUM #### [facility] (DEFAULT) [address] [place] [address] 73231IJWU STATUSElectronic DifferentialNoalOWestern Reserve HospitalComment on above:Performed By: #### BHCG, BETA- HYDROXYBUTYRATE, SERUM #### [facility] (DEFAULT) [address] [place] [address] 43742Zsypnibuwru (Bld) [#/Vol]0.08 10*3/uLNormal0.00-0.42Cleveland ClinicComment on above:Performed By: #### BHCG, BETA- HYDROXYBUTYRATE, SERUM #### [facility] (DEFAULT) [address] [place] [address] 99075Rhboywtiptv/100 WBC (Bld)0.9 %NormalCleveland ClinicComment on above:Performed By: #### BHCG, BETA- HYDROXYBUTYRATE, SERUM #### [facility] (DEFAULT) [address] [place] [address] 35380Jybprrbarm (Bld) [Volume fraction]43.2 %Rstjys10.9-44.3Cleveland ClinicComment on above:Performed By: #### BHCG, BETA-HYDROXYBUTYRATE, SERUM #### [facility] (DEFAULT) [address] [place] [address] 54699Axvhxoyrkr (Bld) [Mass/Vol]14.6 g/xBHndrvz68.4-15.2[facility] Medical CenterComment on above:Performed By: #### BHCG, BETA- HYDROXYBUTYRATE, SERUM #### [facility] (DEFAULT) [address] [place] [address] 45885Tbefymgm Grans %0.5 %NormalCleveland ClinicComment on above:Performed By: #### BHCG, BETA-HYDROXYBUTYRATE, SERUM #### [facility] (DEFAULT) [address] [place] [address] 32350Vaxrnwey Grans Absolute0.04 K/uLNormal<=0.08Cleveland ClinicComment on above:Performed By: #### BHCG, BETA- HYDROXYBUTYRATE, SERUM #### [facility] (DEFAULT) [address] [place] [address] 11924Okqcanmgtvy (Bld) [#/Vol]1.53 10*3/uLNormal1.16-3.51Cleveland ClinicComment on above:Performed By: #### BHCG, BETA- HYDROXYBUTYRATE, SERUM #### [facility] (DEFAULT) [address] [place] [address] 79059Xzwaoxgjzzn/100 WBC (Bld)18.1 %NormalCleveland ClinicComment on above:Performed By: #### BHCG, BETA- HYDROXYBUTYRATE, SERUM #### [facility] (DEFAULT) [address] [place] [address] 68420VII (RBC) [Entitic vol]82.6 gFSdftta64.6-97.7Cleveland ClinicComment on above:Performed By: #### BHCG, BETA- HYDROXYBUTYRATE, SERUM #### [facility] (DEFAULT) [address] [place] [address] 51535Mgmf Cell Hgb27.9 alVsrgcc54.9-33.9Cleveland ClinicComment on above:Performed By: #### BHCG, BETA- HYDROXYBUTYRATE, SERUM #### [facility] (DEFAULT) [address] [place] [address] 50002Uepg Cell Hgb Conc33.8 g/dQLiegmi01.4-35.9Cleveland ClinicComment on above:Performed By: #### BHCG, BETA- HYDROXYBUTYRATE, SERUM #### [facility] (DEFAULT) [address] [place] [address] 11050Xcfplxxho (Bld) [#/Vol]0.27 10*3/uLNormal0.22-0.87Cleveland ClinicComment on above:Performed By: #### BHCG, BETA- HYDROXYBUTYRATE, SERUM #### [facility] (DEFAULT) [address] [place] [address] 28654Goayestcb/100 WBC (Bld)3.2 %NormalCleveland ClinicComment on above:Performed By: #### BHCG, BETA-HYDROXYBUTYRATE, SERUM #### [facility] (DEFAULT) [address] [place] [address] 24011Seppvzkel RBC0.0 /100 WBCNormal<=0.2Cleveland ClinicComment on above:Performed By: #### BHCG, BETA- HYDROXYBUTYRATE, SERUM #### [facility] (DEFAULT) [address] [place] [address] 67885Pdrbigih mean volume (Bld) [Entitic vol]11.4 fLNormal8.5-12.2 [facility] ClinicComment on above:Performed By: #### BHCG, BETA-HYDROXYBUTYRATE, SERUM #### [facility] (DEFAULT) [address] [place] [address] 52945Pucrpopwr (Bld) [#/Vol]263 10*3/pUZwspoh358-095EuqhCleveland ClinicComment on above:Performed By: #### BHCG, BETA- HYDROXYBUTYRATE, SERUM #### [facility] (DEFAULT) [address] [place] [address] 81137VBU (Bld) [#/Vol]5.23 10*6/uLHigh3.91-5.04C[facility] ClinicComment on above:Performed By: #### BHCG, BETA- HYDROXYBUTYRATE, SERUM #### [facility] (DEFAULT) [address] [place] [address] 14919SSQ Eorugxnepltp75.0 %Cevyhj51.8-14.9Cleveland ClinicComment on above:Performed By: #### BHCG, BETA- HYDROXYBUTYRATE, SERUM #### [facility] (DEFAULT) [address] [place] [address], [place] [address]Cnnx + Bands Auto76.8 %NormalCleveland ClinicComment on above:Performed By: #### BHCG, BETA-HYDROXYBUTYRATE, SERUM #### [facility] (DEFAULT) [address] [place] [address] 09298Oboe + Bands,Absolute Auto6.50 K/uLNormal1.64-7.28C[facility] ClinicComment on above:Performed By: #### BHCG, BETA- HYDROXYBUTYRATE, SERUM #### [facility] (DEFAULT) [address] [place] [address] 76239LRG (Bld) [#/Vol]8.46 10*3/uLNormal3.99-11.19C[facility] ClinicComment on above:Performed By: #### BHCG, BETA- HYDROXYBUTYRATE, SERUM #### [facility] (DEFAULT) [address] [place] [address] 11728FQFB 7 (LYTES,BUN,CREA,GLUC)on 48-24-6302Myxpk gap [Moles/Vol] 16 mmol/L7 - 17 mmol/[facility] HospitalChloride [Moles/Vol]101 mmol/L98 - 108 mmol/[facility] HospitalCO2 [Moles/Vol]23 mmol/L21 - 31 mmol/[facility] HospitalCreatinine [Mass/Vol]0.77 mg/dL0.50 - 1.20 mg/dLOSMercy HealtheGFR, CKD-EPI, Female- PINFOSU xner Medical CenterComment on above:Reported eGFR is based on the CKD-EPI 2020 equation using creatinine, age, and sex.Glucose [Mass/Vol]353 mg/cEJtzo53 - 179 mg/dLThe [facility] Hospital Interpretation and review of laboratory resultsAbnoWilson Memorial Hospital Osmolality Calc [Osmolality]301[facility] HospitalPotassium [Moles/Vol]4.3 mmol/L3.5 - 5.0 mmol/LOSU Wilson Memorial Hospitalodium [Moles/Vol]136 mmol/L135 - 145 mmol/[facility] HospitalUrea nitrogen [Mass/Vol]11 mg/dL7 - 25 mg/dLThe Jewish HospitalUrea nitrogen/Creatinine [Mass ratio]14 mg/mgThe Jewish HospitalAnion gap [Moles/Vol]16 mmol/LNormal7-17C[facility] ClinicComment on above:Performed By: #### LIPA, HFP, CA, LABHSTI1, MGO, CHM7, IPB #### [facility] ([facility] [address] [place], [place] [address]Xagxrmom [Moles/Vol]101 mmol/CKxxbki29-309ZnyrCleveland ClinicComment on above:Performed By: #### LIPA, HFP, CA, LABHSTI1, MGO, CHM7, IPB #### [facility] (DEFAULT) [address] [place], [place] [address]ZH6 [Moles/Vol]23 mmol/DLyamiv18-71KbhvCleveland ClinicComment on above:Performed By: #### LIPA, HFP, CA, LABHSTI1, MGO, CHM7, IPB #### [facility] (DEFAULT) [address] [place] [address] 58245Lgbaszgzxs [Mass/Vol]0.77 mg/dLNormal0.50-1.20Cleveland ClinicComment on above:Performed By: #### LIPA, HFP, CA, LABHSTI1, MGO, CHM7, IPB #### [facility] (DEFAULT) [address] [place] [address] 78439iWNJ, CKD-EPI, Female>Normal>=60Cleveland ClinicComment on above:Result Comment: Reported eGFR is based on the CKD-EPI 2020 equation using creatinine, age, and sex.Performed By: #### LIPA, HFP, CA, LABHSTI1, MGO, CHM7, IPB #### [facility] (DEFAULT) [address] [place] [address] 11859Oyoeuqm [Mass/Vol]353 mg/dLHighNonfastin-179 mg/dL; Fastin-99Cleveland ClinicComment on above: Performed By: #### LIPA, HFP, CA, LABHSTI1, MGO, CHM7, IPB #### [facility] (DEFAULT) [address] [place] [address] 66829Osfokpjrzm [Osmolality]301 mosm/myNsnxdm971-401YhdyCleveland ClinicComment on above:Performed By: #### LIPA, HFP, CA, LABHSTI1, MGO, CHM7, IPB #### [facility] (DEFAULT) [address] [place] [address] 75694Tbgztfvuq [Moles/Vol]4.3 mmol/LNormal3.5-5.0C[facility] ClinicComment on above:Performed By: #### LIPA, HFP, CA, LABHSTI1, MGO, CHM7, IPB #### [facility] (DEFAULT) [address] [place] [address] 68708Zyazzu [Moles/Vol]136 mmol/WVocnkd772-720SpnpCleveland ClinicComment on above:Performed By: #### LIPA, HFP, CA, LABHSTI1, MGO, CHM7, IPB #### [facility] (DEFAULT) [address] [place] [address] 04618Hzqz nitrogen [Mass/Vol]11 mg/dLNormal7-25C[facility] ClinicComment on above:Performed By: #### LIPA, HFP, CA, LABHSTI1, MGO, CHM7, IPB #### [facility] (DEFAULT) [address] [place] [address] 95237Txyp nitrogen/Creatinine [Mass ratio]14 mg/mgNormalOWestern Reserve HospitalComment on above:Performed By: #### LIPA, HFP, CA, LABHSTI1, MGO, CHM7, IPB #### [facility] (DEFAULT) [address] [place] [address] 72753JRMUXRRUGD A1Con 77-65-0351Bppgyme [Mass/Vol]260 mg/dLNormal Cleveland ClinicComment on above:Performed By: #### BHCG, BETA-HYDROXYBUTYRATE, SERUM #### [facility] (DEFAULT) [address] [place] [address] 97232Ozeqjehgzv A1C HPLC10.7 %High4.7-5.6Cleveland ClinicComment on above:Performed By: #### BHCG, BETA- HYDROXYBUTYRATE, SERUM #### [facility] (DEFAULT) [address] [place] [address] 39505HZOQZUJ FUNCTION PANELon 63-29-3627Ztnwrhh [Mass/Vol]4.3 g/dL Normal3.5-5.0Cleveland ClinicComment on above: Performed By: #### LIPA, HFP, CA, LABHSTI1, MGO, CHM7, IPB #### [facility] (DEFAULT) [address] [place] [address] 23051FQM [Catalytic activity/Vol]98 U/ZJmjykn88-884FbgcCleveland ClinicComment on above:Performed By: #### LIPA, HFP, CA, LABHSTI1, MGO, CHM7, IPB #### [facility] (DEFAULT) [address] [place] [address] 19615XOH [Catalytic activity/Vol]35 U/LNormal9-48C[facility] ClinicComment on above:Performed By: #### LIPA, HFP, CA, LABHSTI1, MGO, CHM7, IPB #### [facility] (DEFAULT) [address] [place] [address] 54683LVQ [Catalytic activity/Vol]25 U/QUttmah84-83IsqnCleveland ClinicComment on above:Performed By: #### LIPA, HFP, CA, LABHSTI1, MGO, CHM7, IPB #### [facility] (DEFAULT) [address] [place] [address], [place] [address]Gscqrfstg [Mass/Vol]0.5 mg/dLNormal<1.5C[facility] ClinicComment on above:Performed By: #### LIPA, HFP, CA, LABHSTI1, MGO, CHM7, IPB #### [facility] (DEFAULT) [address] [place] [address] 43518Vsuhxqxeb Direct<Normal<0.3OhSumma Health Akron CampusComment on above:Performed By: #### LIPA, HFP, CA, LABHSTI1, MGO, CHM7, IPB #### [facility] (DEFAULT) [address] [place] [address] 76809Mvtxmgo [Mass/Vol]7.7 g/dLNormal6.4-8.3C[facility] ClinicComment on above:Performed By: #### LIPA, HFP, CA, LABHSTI1, MGO, CHM7, IPB #### [facility] (DEFAULT) [address] [place] [address] 48767HZYR SENSITIVITY TROPONIN I - SINGLE ORDERon 22-62-2431aj- Troponin I3 ng/LNormal<34Cleveland ClinicComment on above:Order Comment: Acute Coronary Syndrome (ACS): Initial Evaluation and Management: [email or web address] By: #### LIPA, HFP, CA, LABHSTI1, MGO, CHM7, IPB #### [facility] (DEFAULT) [address] [place] [address] 89068QLGOMAzu 73-14-7617Pgwrbu [Catalytic activity/Vol]16 U/LNormal 11-82OhSumma Health Akron CampusComment on above:Performed By: #### LIPA, HFP, CA, LABHSTI1, MGO, CHM7, IPB #### [facility] (DEFAULT) [address] [place] [address] 38609QDPVPHHFRqf 98-54-2663Yqmpasujl [Mass/Vol]1.6 mg/dL1.6 - 2.6 mg/dLOSU Parkwood HospitalMagnesium [Mass/Vol]1.6 mg/dLNormal1.6-2.6C[facility] ClinicComment on above:Performed By: #### LIPA, HFP, CA, LABHSTI1, MGO, CHM7, IPB #### [facility] (DEFAULT) [address] [place] [address] 53062Qi Panel Informationon 55-48-7851Lqblfujigqwlwt and review of laboratory resultsNormParkview HealthOSMercy Health PHOSPHATE, INORGANICon 65-13-1199Cmpnyzmdl [Mass/Vol]3.4 mg/dL2.2 - 4.6 mg/dLThe Jewish HospitalPhosphorous3.4 mg/dLNormal2.2-4.6C[facility] ClinicComment on above:Performed By: #### LIPA, HFP, CA, LABHSTI1, MGO, CHM7, IPB #### [facility] (DEFAULT) [address] [place] [address] 46986TDVEATTsj 15-06-4320Czrtqod59.1 uIU/mLCritically high2.6-24.9 [facility] CenterComment on above:Performed By: #### INSULIN #### [facility] [address] [address] [address] Jonh RojasHARLAN AR[facility] AUTO DIFFon 03-08-4974NPGY #0.0 103/ulNormal0.0-0.1The [facility] HospitalComment on above:Performed By: #### CBC #### [facility] [address] [place] [address] Dr. Jonh RojasBasophils/100 WBC (Bld)0.6 %Normal0.2-2.0[facility] Comment on above:Performed By: #### CBC #### [facility] [address] [place] [address] Dr. Jonh Lr #0.1 103/ulNormal0.0-0.7The [facility] HospitalComment on above: Performed By: #### CBC #### [facility] [address] [place] [address] Dr. Jonh Gutierrezosinophils/100 WBC (Bld)1.6 %Normal0.9-7.0[facility] Comment on above:Performed By: #### CBC #### [facility] [address] [place] [address] Dr. Jonh Gutierrezrythrocyte distribution width (RBC) [Ratio]13.6 %Uyfhmf57.0-15.0 The [facility] HospitalComment on above:Performed By: #### CBC #### [facility] [address] [place] [address] Dr. Jonh RojasHematocrit (Bld) [Volume fraction]43.3 %Hetchu78.0-48.0The [facility] HospitalComment on above:Performed By: #### CBC #### [facility] [address] [place] [address] Dr. Jonh RojasHemoglobin (Bld) [Mass/Vol]14.3 g/aUWkqymj16.0-16.0The [facility] HospitalComment on above:Performed By: #### CBC #### [facility] [address] [place] [address] Dr. Jonh Ac #0.02 10e3/ulNormal0.00-0.03The [facility] HospitalComment on above:Performed By: #### CBC #### [facility] [address] [address] [address] Jonh Ac %0.3 %Normal0.0-0.5The [facility] HospitalComment on above: Performed By: #### CBC #### [facility] [address] [place] [address] Dr. Jonh Hollingsworth #2.4 103/ulNormal1.2-3.8The [facility] HospitalComment on above:Performed By: #### CBC #### [facility] [address] [place] [address] Dr. Jonh Diggshocytes/100 WBC (Bld)33.7 %Drnzyy27.5-60.0The [facility] HospitalComment on above:Performed By: #### CBC #### [facility] [address] [place] [address] Dr. Jonh BojorquezUAL DIFF REQNONormalThe [facility] HospitalComment on above: Performed By: #### CBC #### [facility] [address] [place] [address] Dr. Jonh Velasquez (RBC) [Entitic mass]27.4 nqLdhlgb21.7-34.0The [facility] HospitalComment on above:Performed By: #### CBC #### [facility] [address] [place] [address] Dr. Jonh Hernandez (RBC) [Mass/Vol]33.0 g/kQMeqwqe00.9-35.2The [facility] HospitalComment on above:Performed By: #### CBC #### [facility] [address] [place] [address] Dr. Jonh Hernandez (RBC) [Entitic vol]83.1 mLSapmjt48.0-99.0The [facility] HospitalComment on above:Performed By: #### CBC #### [facility] [address] [place] [address] Dr. Jonh Fritz #0.3 103/ulNormal0.3-0.8The [facility] HospitalComment on above:Performed By: #### CBC #### [facility] [address] [place] [address] Dr. Jonh Fletcherocytes/100 WBC (Bld)4.3 %Normal1.7-12.0[facility] Comment on above:Performed By: #### CBC #### [facility] [address] [place] [address] Dr. Jonh VillegasUT #4.2 103/ulNormal1.4-6.5The [facility] HospitalComment on above:Performed By: #### CBC #### [facility] [address] [place] [address] Dr. Jonh Villegasutrophils/100 WBC (Bld)59.5 %Evczji15.0-75.0The [facility] HospitalComment on above:Performed By: #### CBC #### [facility] [address] [place] [address] Dr. Jonh Esteslet mean volume (Bld) [Entitic vol]11.7 fLNormal9.5-13.5The [facility] HospitalComment on above:Performed By: #### CBC #### [facility] [address] [place] [address] Dr. Jonh RojasPLT274 103/qmStwgdb840-404Oot [facility] HospitalComment on above: Performed By: #### CBC #### [facility] [address] [place] [address] Dr. Jonh RojasRBC5.21 106/ulNormal4.20-5.40The [facility] HospitalComment on above:Performed By: #### CBC #### [facility] [address] [place] [address] Dr. Jonh RojasWBC7.0 103/ulNormal4.0-11.0The [facility] HospitalComment on above: Performed By: #### CBC #### [facility] [address] [place] [address] Dr. Jonh Salomon T3on 07-73-4648CDRF T32.72 pg/mlLNormal2.18-3.98The [facility] HospitalComment on above:Performed By: #### CMP, T4, TSH, LIPID, FT3 #### [facility] [address] [place] [address] Dr. Jonh RojasGLYCOHEMOGLOBIN A1Con 75-61-5707XZR RECOMMENDATIONSEE BELOWNormGeorgetown Behavioral HospitalCombrighton hospital on above:Result Comment: ADA RECOMMENDED LIMIT 4.0 - 6.0 ADA THERAPEUTIC TARGET < 7.0 ACTION SUGGESTED > 7.0Performed By: #### A1C #### [facility] [address] [place] [address] Dr. Jonh RojasGlucose [Mass/Vol]171 mg/dLNoUniversity Hospitals Geauga Medical CenterComment on above:Performed By: #### A1C #### [facility] [address] [place] [address] Dr. Jonh RojasHbA1c (Bld) [Mass fraction]7.6 %Critically high4.5-6.2The [facility] HospitalComment on above:Performed By: #### A1C #### [facility] [address] [place] [address] Dr. Jonh Hendricks 55-73-0293Pspc [Mass/Vol]68.0 ug/fCEzhobr63.0-170.0The [facility] HospitalComment on above:Performed By: #### VITAD, IRON #### [facility] [address] [place] [address] Dr. Jonh RojasLIPID PROFILEon 23-26-7605SNMN-HDL RATIO NORMSEE [facility] HospitalComment on above:Result Comment: 3.3 - 4.4 LOW RISK 4.4 - 7.1 AVERAGE RISK 7.1 - 11.0 MODERATE RISK >11.0 HIGH RISKPerformed By: #### CMP, T4, TSH, LIPID, FT3 #### [facility] [address] [place] [address] Dr. Jonh RojasCholesterol [Mass/Vol]185 mg/dLNormal<=200[facility] Comment on above:Performed By: #### CMP, T4, TSH, LIPID, FT3 #### [facility] [address] [place] [address] Dr. Yilan ChangCholesterol in HDL [Mass/Vol]51 mg/vVDfpnwe90-14XbmAdena Fayette Medical Center on above:Performed By: #### CMP, T4, TSH, LIPID, FT3 #### [facility] [address] [place] [address] Dr. Jonh Jungesterol in LDL [Mass/Vol]84.4 mg/dLAultman Orrville Hospital on above:Performed By: #### CMP, T4, TSH, LIPID, FT3 #### [facility] [address] [place] [address] Dr. Jonh Perez.total/Cholesterol in HDL [Mass ratio]3.6 {ratio} NormalAdena Fayette Medical Center on above:Performed By: #### CMP, T4, TSH, LIPID, FT3 #### [facility] [address] [place] [address] Dr. Jonh Jolly NORMAL> or = 60 mg/dl - LOW CARDIOVASCULAR RISK <40 mg/dl - HIGH CARDIOVASCULAR RISKAultman Orrville Hospital on above:Performed By: #### CMP, T4, TSH, LIPID, FT3 #### [facility] [address] [place] [address] Dr. Jonh Naranjo CALC NORMALSEE BELOWWyandot Memorial HospitalCombrighton hospital on above:Result Comment: <100 mg/dl OPTIMAL 100 - 129 mg/dl NEAR OR ABOVE OPTIMAL 130 - 159 mg/dl BORDERLINE HIGH 160 - 189 mg/dl HIGH >190 mg/dl VERY HIGH Performed By: #### CMP, T4, TSH, LIPID, FT3 #### [facility] [address] [place] [address] Dr. Jonh RojasTriglyceride [Mass/Vol]248 mg/dLCritically high<=150[facility] on above:Performed By: #### CMP, T4, TSH, LIPID, FT3 #### [facility] [address] [place] [address] Dr. Jonh GrayLDL CALC49.6 mg/dLMercy Health West Hospitalment on above: Performed By: #### CMP, T4, TSH, LIPID, FT3 #### [facility] [address] [place] [address] Dr. Jonh West 14(COMP METB)on 78-11-3665Ojfrfib [Mass/Vol]3.8 g/dLNormal 3.4-5.0The [facility] CenterComment on above:Performed By: #### CMP, T4, TSH, LIPID, FT3 #### [facility] [address] [place] [address] Dr. Jonh RojasAlbumin/Globulin [Mass ratio]0.9 {ratio}NormalThe [facility] HospitalComment on above:Performed By: #### CMP, T4, TSH, LIPID, FT3 #### [facility] [address] [place] [address] Dr. Jonh Palacio [Catalytic activity/Vol]76 U/PVhtlgm89-405Pni [facility] HospitalComment on above:Performed By: #### CMP, T4, TSH, LIPID, FT3 #### [facility] [address] [place] [address] Dr. Jonh Jackson [Catalytic activity/Vol]85 U/LCritically gpct91-74Fts [facility] HospitalComment on above:Performed By: #### CMP, T4, TSH, LIPID, FT3 #### [facility] [address] [place] [address] Dr. Jonh Mai gap [Moles/Vol]11.1 mmol/LNormalThe [facility] Comment on above:Performed By: #### CMP, T4, TSH, LIPID, FT3 #### [facility] [address] [place] [address] Dr. Jonh Serrano [Catalytic activity/Vol]49 U/LCritically fias95-42Anj [facility] HospitalComment on above:Performed By: #### CMP, T4, TSH, LIPID, FT3 #### [facility] [address] [place] [address] Dr. Jonh Delongirubin [Mass/Vol]0.6 mg/dLNormal0.2-1.0[facility] Comment on above:Performed By: #### CMP, T4, TSH, LIPID, FT3 #### [facility] [address] [place] [address] Dr. Jonh RojasCalcium [Mass/Vol]9.3 mg/dLNormal8.5-10.1The [facility] Comment on above:Performed By: #### CMP, T4, TSH, LIPID, FT3 #### [facility] [address] [place] [address] Dr. Jonh RojasChloride [Moles/Vol]101 mmol/SKkzcql37-657Wal [facility] Comment on above:Performed By: #### CMP, T4, TSH, LIPID, FT3 #### [facility] [address] [place] [address] Dr. Jonh RojasCO2 [Moles/Vol]31.7 mmol/PLqtipt06.0-32.0[facility] Comment on above:Performed By: #### CMP, T4, TSH, LIPID, FT3 #### [facility] [address] [place] [address] Dr. Jonh RojasCreatinine [Mass/Vol]0.74 mg/dLNormal0.55-1.02The [facility] CenterComment on above:Performed By: #### CMP, T4, TSH, LIPID, FT3 #### [facility] [address] [place] [address] Dr. Jonh GutierrezGFR-AF SOLOMON ISLANDER>60Normal>=60The [facility] HospitalComment on above:Performed By: #### CMP, T4, TSH, LIPID, FT3 #### [facility] [address] [place] [address] Dr. Jonh GutierrezGFR-NON AF SOLOM[place] ISLANDER>60Normal>=60The [facility] HospitalComment on above:Performed By: #### CMP, T4, TSH, LIPID, FT3 #### [facility] [address] [place] [address] Dr. Jonh RojasGlobulin (S) [Mass/Vol]4.1 g/dLNormalThe [facility] HospitalComment on above:Performed By: #### CMP, T4, TSH, LIPID, FT3 #### [facility] [address] [place] [address] Dr. Jonh RojasGlucose [Mass/Vol]128 mg/dLCritically rezw28-970Ifi [facility] HospitalComment on above:Performed By: #### CMP, T4, TSH, LIPID, FT3 #### [facility] [address] [place] [address] Dr. Jonh RojasPotassium [Moles/Vol]3.8 mmol/LNormal3.5-5.1The [facility] Comment on above:Performed By: #### CMP, T4, TSH, LIPID, FT3 #### [facility] [address] [place] [address] Dr. Jonh RojasProtein [Mass/Vol]7.9 g/dLNormal6.4-8.2[facility] Comment on above:Performed By: #### CMP, T4, TSH, LIPID, FT3 #### [facility] [address] [place] [address] Dr. Jonh RojasSodium [Moles/Vol]140 mmol/DBlkxgf507-976Fgb [facility] Comment on above:Performed By: #### CMP, T4, TSH, LIPID, FT3 #### [facility] [address] [place] [address] Dr. Jonh RojasUrea nitrogen [Mass/Vol]9.0 mg/dLNormal7.0-18.0The [facility] CenterComment on above:Performed By: #### CMP, T4, TSH, LIPID, FT3 #### [facility] [address] [place] [address] Dr. Jonh Shelton nitrogen/Creatinine [Mass ratio]12.2 mg/mgNormalThe [facility] HospitalComment on above:Performed By: #### CMP, T4, TSH, LIPID, FT3 #### [facility] [address] [place] [address] Dr. Jonh Gomez4on 19-67-6927Z8 [Mass/Vol]7.30 ug/dLNormal4.80-13.90The [facility] HospitalComment on above:Performed By: #### CMP, T4, TSH, LIPID, FT3 #### [facility] [address] [address] [address] Jonh Ontiveros 83-31-6809SFY9.396 uIU/mLNormal0.358-3.740The [facility] CenterComment on above:Performed By: #### CMP, T4, TSH, LIPID, FT3 #### [facility] [address] [address] [address] Jonh RojasVITAMIN D 25 OHon 44-56-4947DBX D 25-OH37.3 ng/mLNormalThe [facility] HospitalComment on above:Performed By: #### VITAD, IRON #### [facility] [address] [place] [address] Dr. Jonh Gabriel [facility] HospitalComment on above: Result Comment: <20 ng/mL Vit D deficient 20 - <30 ng/mL Vit D insufficient 30 - 100 ng/mL Vit D sufficient >100 ng/mL Potential ToxicityPerformed By: #### VITAD, IRON #### [facility] [address] [place] [address] Dr. Jonh Rojas Vital Signs Date TimeVital SignValuePerforming JkkacrlyxCdznvufg42-43-4075 11:130400Body bebmftczgfa99.49 [degF]Raquel New Lothrop DO Work Phone: [phone]09-15-2025 11:13-0400 Diastolic blood kukqcehd07 mm[Hg]Raquel Cathleen DO Work Phone: [phone]09-15-2025 11:13-0400Heart rkbw544 /minHilary Cathleen DO Work Phone: [phone]82[facility]09-15-2025 11:13-0400 Respiratory rate20 /minHilary New Lothrop DO Work Phone: [phone]66[facility]09-15-2025 11:13-8402HaY5% (BldA) [Mass fraction]91 %Raquel New Lothrop DO Work Phone: [phone]09-15-2025 11:13-0400Systolic blood dgkdtsis121 mm[Hg]Raquel Cathleen DO Work Phone: [phone]43[facility]09-14-2025 21:00-0400Body deafhz219.6 cmHilary New Lothrop DO Work Phone: [phone]50[facility]09-14-2025 21:00-0400Body mass index (BMI) [Ratio]69.52 kg/q9Fvwpno Cathleen DO Work Phone: [phone]48[facility]09-14-2025 21:00-0400Body .8 kgHilary Cathleen DO Work Phone: [phone]70[facility] Encounters Encounter DateEncounter TypeCare ProviderFacilityStart: 08-06-2025 End: 34-14-8132nxojwyrabjXYPMEJC L ROSSETTIFacility:[facility]Start: 08-06[facility]2025 End: 87-21-3206Niftfylnyc and management of inpatientHilary L Cathleen DO Work Phone: [phone] on above:Sinus tachycardiaStart: 03-12-2023 End: 74-45-8394fxtfrtombnPVLQKD CRAMERFacility:H1 Procedures DateProcedureProcedure DetailPerforming ClinicianStart: 03-77-2615Crhuxhnvml bloodKattariq Saunders MD Work Phone: Start: 21-96-5550VAJUC LIGHT BLUE Aida Christina MD Work Phone: Start: 19-54-0634VOXZM Brandt Christina MD Work Phone: Start: 79-33-3602ZWLFY MICROHilary L New Lothrop DO Work Phone: Start: 53-78-9918CAEOFCPVUV REFLEX TO CULTUREHilary L New Lothrop DO Work Phone: Start: 19-83-3207Cukbw dip stick/tablet reagent auto microscopyHilary L New Lothrop DO Work Phone: Start: 55-11-8048Vzrys count platelet automated Nicole Saunders MD Work Phone: Start: 51-44-4094Ktufk of lactateAmanda Bonner MD Work Phone: Start: 83-83-8239Rnpgcmv measurement, bloodHilary L Cathleen DO Work Phone: Start: 82-12-2615Legycobx screenHilary Cathleen DO Work Phone: Start: 72-83-7470JJJZP TYPE RECONFIRMATIONSmara Gonzalez MD Work Phone: Start: 59-26-0661Liowobzq screenALLINGRID TYSON Comment on above:Performed By: #### BHCG, BETA-HYDROXYBUTYRATE, SERUM #### [facility] ([facility]) [address] [place] [address]Ddopu: 47-10-5309Zjjal typing serologic aboAmanda Bonner MD Work Phone: Start: 45-00-7680Jhbxw of thyroid stimulating hormone tshNicole Saunders MD Work Phone: Start: 62-34-6836Zotpmwt ionizedHilary L Cathleen DO Work Phone: Start: 58-78-3279Uionvwginw exam chest single view Raquel L New Lothrop DO Work Phone: Start: 12-62-8064Thhrwsoif directHilary L [place]othrop DO Work Phone: Start: 93-10-2841HWB AND ELECTRONIC DIFFElayne Christina MD Work Phone: Start: 12-99-6590Qelugyvu blood count with white cell differential, automatedElayne Christina MD Work Phone: Plan of Treatment DateCare ActivityDetailAuthorStart: 30-88-3994LIXVS-19 VACCINE ( season)COVID-19 VACCINE ( season)[facility]: 18-21-5596Ejdwhxkwg vaccinationINFLUENZA VACCINE (#1)[facility] Start: 12-59-2942Gepii panelLIPID SCREENINGOSSelect Medical Specialty Hospital - Trumbulltart: 85-36-3075Bmzjtyxwo for malignant neoplasm of breastMAMMOGRAM SCREENING DISCUSSIONOSSelect Medical Specialty Hospital - Trumbulltart: 45-09-2707WVT VACCINE (1 - 3-dose SCDM series)HPV VACCINE (1 - 3-dose SCDM series)[facility]Select [facility]ulltart: 16-13-7181Fwaiobygd for malignant neoplasm of cervixCERVICAL CANCER SCREENING DISCUSSIONOSSelect Medical Specialty Hospital [facility]ulltart: 18-46-3685Uvhfcpved B vaccinationHEP B VACCINE (1 of 3 - 19+ 3-dose series)OSSelect [facility] Special[facility] Hospital [facility] Trumbulltart: 2002 Third diphtheria, tetanus and acellular pertussis (DTaP) vaccinationTDAP (ADULT) [facility]tart: 52-50-8321PQW screeningHIV SCREENING DISCUSSION [facility]: 13-61-8587Ucioieaco C screeningHEPATITIS C VIRUS SCREENINGOSSelect Medical Specialty Hospital - Trumbulltart: 53-28-2072Phbawqp vaccinationTETANUS [facility] End: 46-62-8617Cgxijcmw ECGECG ECG STAT One Time for 1 Occurrences starting 08/05/2025 until 08/05/2025The [facility] HospitalComment on above:One Time for 1 Occurrences starting 08/05/2025 until 08/05/2025 End: 16-35-4562ZZOTUI BLOOD GASVENOUS BLOOD GAS Blood Gas STAT One Time for 1 Occurrences starting 08/06/2025 until 08/06/2025The [facility] HospitalComment on above:One Time for 1 Occurrences starting 08/06/2025 until 08/06/2025 Payers DatePayer CategoryPayerPolicy [id number] (Managed Care)[employer] [id number] Social History DateTypeDetailFacilityStart: 00-06-3659Dlorkfa smoking status NHISNever smoked tobaccoOSSelect Medical Specialty Hospital [facility] Trumbulltart: 72-49-2248Ugoimds use and exposure Smokeless tobacco non-userOSSelect Medical Specialty Hospital - Trumbulltart: 30-95-2230Qtxfqplhd beverage intakeLifetime non-drinker (finding)[facility]: 08-05-2025 End: 38-33-2176Ahyqdoo of Social functionOSMercy Health Work Phone: Start: 08-05-2025 End: 57-44-6645Knhhsyi use panelOSMercy Health Work Phone: How often to you have a drink containing alcohol?Never [facility] Work Phone: How many standard drinks containing alcohol do you have on a typical day?Not on [facility]: 84-01-8151Xfq assigned at birthNot on [facility]: 02-94-6913EveLqchqi (finding)[facility] Functional Status SzusKksqlxkhnmMbtermWhzpubxx92-03-3414Suo you deaf, or do you have serious difficulty hearingNo 08/06/2025 9:00 PM EDT Rebeca Miller RN NoThe [facility]09-14-2025Are you blind, or do you have serious difficulty seeing, even when wearing glassesNo 08/06/2025 9:00 PM EDT Rebeca Miller RN NoThe [facility]09-14-2025Do you have serious difficulty walking or climbing stairsNo 08/06/2025 9:00 PM EDT Rebeca Miller RN NoOSMercy Health09-14-2025Do you have difficulty dressing or bathingNo 08/06/2025 9:00 PM EDT Rebeca Miller RN NoThe [facility]09-14-2025Because of a physical, mental, or emotional condition, do you have difficulty doing errands alone such as visiting a physician's office or shoppingNo 08/06/2025 9:00 PM EDT Rebeca Miller RN [facility]09-13-2025Total score [AUDIT-C]0 08/05/2025 9:46 PM EDT Dagmar Rene RNOSU [facility] Mental Status RwgeAukavuloksEgzpdgWiejinhl65-61-5711Gvzhuqk of a physical, mental, or emotional condition, do you have serious difficulty concentrating, remembering, or making decisionsNo 08/06/2025 9:00 PM EDT Rebeca Miller RN [facility] Clinical Notes 08-05-2025 to 08-07-2025 Note Date & JqjyHgqfHbatmsmw43-55-4800 Nurse Note* Nursing Notes - Annalisa Stauffer RN - 08/07/2025 3:51 PM EDT After review of the AVS by bedside RN, patient verbalized understanding and denies any questions orconcerns related to medications or follow up plans. PIV removed per protocol. Patient reports all personal belongings accounted for at the time of discharge. [facility] be [facility] by [facility] for discharge to Home. Annalisa Stauffer RN [facility]09-15-2025 Miscellaneous Notes* Nursing Notes - Annalisa Stauffer RN - 08/07/2025 3:51 PM EDT After review of the AVS by bedside RN, patient verbalized understanding and denies any questions orconcerns related to medications or follow up plans. PIV removed per protocol. Patient reports all personal belongings accounted for at the time of discharge. Patient will be transported to the [facility] by wheelchair for discharge to Home. Annalisa Stauffer RN * Plan of Care - Annalisa Stauffer RN - 08/07/2025 10:47 AM EDT Problem: Adult Inpatient Plan of Care Goal: Absence of Hospital-Acquired Illness or Injury Outcome: Progressing Problem: Adult Inpatient Plan of Care Goal: Readiness for Transition of Care Outcome: Progressing * Nursing Notes - Rebeca Miller RN - 08/06/2025 10:04 PM EDT Desirae Breen was admitted to [facility] from ED. The patient reported all personal belongings accounted for at the time of admission. They will assume responsibility for all personal belongings kept at bedside. The patient's fall risk was assessed, necessary interventions were implemented, and the fall tool was updated. A head to toe assessment completed. Please see the flowsheet for further assessment. A dual RN initial assessment of skin condition was performed by Rebeca Miller RN and STEPAN Brady. Skin Assessment: Skin within defined limits:Yes Yonatan Score: 22 LDA Added:No GEN MED 9 notified of the patient's arrival. Rebeca Miller RN documented in this encounterOSU [facility]09-[facility]-20[facility] History of Present illness Narrative* Shantal Gillespie - 08/07/2025 2:42 PM EDT Care Management Progress Note Advance Directives Completed Met with Patient to complete and witness Advance Directives HCPOA Information Kieran Loretta - Brother ([phone]) Original document has been provided to patient. Additional copies has been provided to patient. Copy has been scanned into IHIS. Information has been updated in demographics. Shantal Gillespie Care Management Farm Equipment Engineer [phone] * JENNIFER Fountain - 08/07/2025 12:49 PM EDT Care Management Discharge Note Selected Continued Care - Admitted Since 08/06/2025 No services have been selected for the patient. Discharge Date: 08/07/25 Destination: Home Transport Request Mode of Transfer: Private Vehicle (Brother will transport.) Patient is medically stable for discharge per physician/medical team. Patient remains in agreement with the discharge plan. No Care Management needs. Marilin RIVAS Lockstitch Machine Operator Available by [employer] or [employer] * JENNIFER Fountain - 08/07/2025 12:33 PM EDT Discharge Planning Assessment Is the patient able to participate in the assessment?: Yes Care Management Plan Patient reported disability income and that daily needs are well met. She requested resources for delivered meals, and assistance with completing HCPOA. She will discharge home today with her brotherproviding transport. Lockstitch Machine Operator provided delivered meals resources, and requested that Farm Equipment Engineer assist with HCPOA. Care Management will follow patient in the event that discharge needs arise. Initial Discharge Planning Expected Discharge Disposition: Home Transportation Available for Discharge: Family or Friend (Brother will transport) Anticipated DME: none Anticipated Services at Discharge: Outpatient follow up Patient Assessment Completed: Initial Legal Next of Kin Does the patient have a Guardian?: No Spouse: No Adult Child(baldo), List All Adult Children: No Parent(s) - List All Living Parents: No Adult Sibling(s), List All Adult Siblings: Yes Name and Contact information: Kieran Burgos [phone] Would you like to add additional adult siblings?: No Nearest Adult Related by Blood or Adoption: No Patient Reports No Relatives by Blood or Adoption.: No Reviewed and Updated in Demographics? : Yes Advanced Care Planning Has the patient completed Advance Directives?: Not Completed Referral to Social Work for Advance Care Planning? : Patient Agreeable Medication Management Does the patient have prescription insurance coverage? : Yes Is the patient on Anticoagulation? : No [id number] [place] [address] - [address] [facility] [address] [address] Living Environment and Support System Is the patient from a facility or care home?: No Living Environment: House Patient Caregiving Responsibilities: Self Patient-identified caregiver/support network: Family, Friends, Pentec[employer] (Brother and aunt) Who does the patient identify as a teachable caregiver(s)?: Sibling(s), Other Family Services Does the patient use a home health or hospice agency?: No Current with dialysis?: (NA) Does the patient use any community programs or services?: No Does patient use DME? : none Does the patient use oxygen?: No Does patient use medical supplies? : none Anticipated Changes Related to Illness/Injury? : No Initial ADLs Prior to Arrival What is the patient's reported baseline physical functioning prior to this acute illness?: independent What is the patient's reported baseline cognitive functioning prior to this acute illness?: independent Is the patient's baseline functioning changed by this acute illness? : No Concerns with patient being able to care for themselves at home? : No Marilin RODRIGUEZ-Thomas Lockstitch Machine Operator Available by [employer] or [employer] * Yomaira Sorto RPH - 08/07/2025 11:55 AM EDT Department of Pharmacy Medication Reconciliation Note Patient: Desirae Breen Room/Bed: [facility] I have reviewed the patient's discharge medication list. The patient's medication list is correct and accurate to the best of my knowledge. CHANGE how you take these medications CHANGE how you take these medications Morning Afternoon Evening Bedtime As Needed metFORMIN 1000 MG TABS Take 1 tablet by mouth 2 times daily. Commonly known as: GLUCOPHAGE What changed: The strength you have reported taking of this medication has changed. The quantity you have reported taking of this medication has changed. 1 tablet 1 tablet CONTINUE taking these medications CONTINUE taking these medications Morning Afternoon Evening Bedtime As Needed Amitriptyline 50 MG TABS Take 1 tablet by mouth at bedtime. Commonly known as: ELAVIL Last time this was given: 50 mg on August 06, 2025 9:43 PM 1 tablet Atorvastatin 40 MG TABS Take 1 tablet by mouth daily. Commonly known as: LIPITOR Last time this was given: 40 mg on August 07, 2025 8:39 AM 1 tablet busPIRone 15 MG TABS Take 1 tablet by mouth 2 times daily. Commonly known as: BUSPAR Last time this was given: 15 mg on August 07, 2025 8:39 AM 1 tablet 1 tablet Cetirizine 10 MG TABS Take 1 tablet by mouth daily. Commonly known as: ZyrTEC Last time this was given: 10 mg on August 07, 2025 8:39 AM 1 tablet escitalopram 20 MG TABS Take 1 tablet by mouth daily. Commonly known as: LEXAPRO Last time this was given: 20 mg on August 07, 2025 8:40 AM 1 tablet glipiZIDE 5 MG tablet XL Take 1 tablet by mouth daily. Commonly known as: GLUCOTROL XL 1 tablet Lisinopril 40 MG TABS Take 1 tablet by mouth daily. Commonly known as: PRINIVIL Last time this was given: 40 mg on August 07, 2025 8:39 AM 1 tablet omeprazole [address] capsule Take 1 capsule by mouth daily. Commonly known as: PRILOSEC 1 capsule Ondansetron 4 MG TABS Take 1 tablet by mouth every 12 hours as needed for Nausea / Vomiting. Commonly known as: ZOFRAN Last time this was given: 4 mg on August 06, 2025 2:33 AM 1 tablet Trulicity 0.75 MG/0.5ML SOAJ injection Inject 0.5 mL under the skin once a week. Generic drug: Dulaglutide Inject 0.5 mL under the skin once a week. Vitamin D3 50 MCG (2000 UT) TABS Take 2 tablets by mouth daily. Last time this was given: 4,000 Units on August 07, 2025 8:39 AM 2 tablets Please feel free to contact me or the pharmacy with any further questions. Name: Yomaira Sorto [facility] Phone #: [phone] Date/Time: 08/07/2025 11:55 AM Time Spent: 4 minutes * Veronica Remy [facility] - 08/07/2025 7:53 AM EDT Department of Pharmacy Targeted Medication Reconciliation Note Patient: Desirae Breen Room/Bed: [facility] I have performed a targeted medication review of the patient's home medications with the dispense report. I have also reviewed this list with the primary medical team. The limited changes have been updated in [facility]. A full medication reconciliation was not completed at this time. Meds align with [employer] fill history - confirm with patient when able. Added to Home Medications: N/A Deleted from Home Medications: N/A Edits to Home Medications: N/A Prior to Admission Medications Prescriptions Last Dose Informant Patient Reported? Taking? Amitriptyline 50 MG tablet Yes Yes Sig: Take 1 tablet by mouth at bedtime. Atorvastatin 40 MG tablet Yes Yes Sig: Take 1 tablet by mouth daily. Cetirizine 10 MG tablet Yes Yes Sig: Take 1 tablet by mouth daily. Cholecalciferol (Vitamin D3) 50 MCG (2000 UT) tablet Yes Yes Sig: Take 2 tablets by mouth daily. Dulaglutide (Trulicity) 0.75 MG/0.5ML Solution Auto-injector injection Yes Yes Sig: Inject 0.5 mL under the skin once a week. Lisinopril 40 MG tablet Yes Yes Sig: Take 1 tablet by mouth daily. Ondansetron 4 MG tablet Yes Yes Sig: Take 1 tablet by mouth every 12 hours as needed for Nausea / Vomiting. busPIRone 15 MG tablet Yes Yes Sig: Take 1 tablet by mouth 2 times daily. escitalopram 20 MG tablet Yes Yes Sig: Take 1 tablet by mouth daily. glipiZIDE 5 MG tablet XL Yes Yes Sig: Take 1 tablet by mouth daily. metFORMIN 500 MG tablet Yes Yes Sig: Take 1 tablet by mouth 2 times daily. omeprazole [address] capsule Yes Yes Sig: Take 1 capsule by mouth daily. Facility-Administered Medications: None Please feel free to contact me with any further questions. Name: Veronica Remy [facility] Date/Time: 08/07/2025 7:53 AM Time Spent: 3 minutes * Daniel George [facility] - 08/06/2025 11:28 PM EDT Department of Pharmacy Anticoagulant/Antithrombotic Progress Note Patient: Desirae Breen Room/Bed: [facility] Assessment/Plan: The patient's most recent renal function markers and weight/BMI include: Estimated Creatinine Clearance: 160 mL/min (by C-G formula based on SCr of 0.77 mg/dL). Body mass index is 69.52 kg/m . Weight: Wt Readings from Last 1 Encounters: 08/06/25 (!) 183.8 kg (405 lb 3.2 oz) Based on this, I updated orders to reflect a change from Enoxaparin 40 mg subcutaneous Q24h to Enoxaparin 60 mg subcutaneous Q12h . Name: Daniel George [facility] Phone: [phone] Date/Time: 08/06/2025 11:28 PM [facility] course Narrative* Nicole Saunders MD - 08/07/2025 12:04 PM EDT Internal Medicine Discharge Summary Patient Name Desirae Breen Age (Date of ) 40 y.o. (1985) Admit Date 08/06/2025 Discharge Date 08/07/2025 Inpatient Days 0 Primary Diagnoses Sinus Tachycardia Nausea Type 2 Diabetes Mellitus Recommendations Continue home anxiety medications Increase metformin to 1000 mg BID Dermatology referral for psoriasis treatment Dear Doctors, I recently had the opportunity to care for Desirae Breen during her recent hospital stay at [facility]. As you may know, Desirae Breen is a 40 y.o. female with past medical history of type 2 diabetes, anxiety, depression, psoriasis, hyperlipidemia, and GERD who presented due to nausea and vomiting, with persistent tachycardia in the ED. We treated her for the following problems: Sinus Tachycardia Favor 2/2 to anxiety vs. Gastroenteritis vs. SSRI or amitriptyline withdrawal Nausea - 3 liters LR boluses in ED - lactate 2.9 initially, down to 1.9 - Chest xray shows no cardiopulmonary disease - telemetry - checked a TSH, in normal range - zofran ordered as needed - resumed home anti anxiety medications Generalized Anxiety Disorder Depression - resumed home medications: amitriptyline, buspirone, escitalopram Type 2 Diabetes Mellitus - Hbg A1C ordered: 10.7 - Holding home meds while in hospital (metformin, trulicity, and glipizide while in the hospital) - Increased metformin upon discharge Upon discharge the patient's code was Full Code Please see the remainder of this document for relevant data from this admission as well as the patient's discharge instructions and follow-up appointments.. An electronic copy of the patient's records can be obtained via [employer] at [email or web address] It has been my pleasure participating in this patient's care. Please contact me with any questions or concerns regarding her hospital stay. Quality Self-Check Complexity. Obesity, Class III Body mass index is 69.52 kg/m . - Follow with PCP for dietary and lifestyle modifications. Wound Documentation Any conditions listed below are present on admission unless otherwise specified. . Sincerely, Nicole Saunders MD Dictated under attending physician Naoime Mckenna MD Division of Hospital Medicine p: [phone] f: [phone] Relevant Data from this Admission Vitals BP: 117/82 Pulse (Heart Rate): 111 Resp Rate: 20 Temp: 98.5 F (36.9 C) O2 Sat (%): 91 % Weight: (!) 183.8 kg (405 lb 3.2 oz) Physical Exam on Discharge Gen: Alert, Awake Resp:CTA & P, normal respiratory effort Cardio: RRR, normal S1, S2, no M/R/G Skin: [place] thick plaques on BL arms with overlying scale, circular pink plaques and papules on faceand neck Neuro: Moving all four extremities equally Recent Labs 08/05/25 2254 08/06/25 0217 08/07/25 0120 WBC 8.46 -- 5.54 HGB 14.6 -- 12.6 PLATELET 263 < > 235 SODIUM 136 < > 141 POTASSIUM 4.3 < > 3.9 CO2 23 -- 25 ANIONGAP 16 -- 17 BUN 11 -- 10 CREATSERUM 0.77 -- 0.49* MAGNESIUM 1.6 -- -- PHOSPHORUS 3.4 -- -- AST 25 -- -- ALT 35 -- -- ALKPHOS 98 -- -- BILITOTAL 0.5 -- -- BILIDIRECT <0.1 -- -- < > = values in this interval not displayed. Relevant Imaging Patient Instructions on Discharge No future appointments. No follow-up provider specified. Medication List CHANGE how you take these medications metFORMIN 1000 MG TABS Commonly known as: GLUCOPHAGE Take 1 tablet by mouth 2 times daily. What changed: medication strength how much to take CONTINUE taking these medications Amitriptyline 50 MG TABS Commonly known as: ELAVIL Atorvastatin 40 MG TABS Commonly known as: LIPITOR busPIRone 15 MG TABS Commonly known as: BUSPAR Cetirizine 10 MG TABS Commonly known as: ZyrTEC escitalopram 20 MG TABS Commonly known as: LEXAPRO glipiZIDE 5 MG tablet XL Commonly known as: GLUCOTROL XL Lisinopril 40 MG TABS Commonly known as: PRINIVIL omeprazole [address] capsule Commonly known as: PRILOSEC Ondansetron 4 MG TABS Commonly known as: ZOFRAN Trulicity 0.75 MG/0.5ML SOAJ injection Generic drug: Dulaglutide Vitamin D3 50 MCG (1999 IA) TABS Where to Get Your Medications These medications were sent to [facility]/pharmacy #[id number] [place] [address] - [address] [place] [address] AT [address] [place] [id number] metFORMIN 1000 MG TABS Cosigned by Naomie Mckenna MD at 08/07/2025 1:05 PM EDT Associated attestation - Naomie Mckenna MD - 08/07/2025 1:05 PM EDT Attending attestation: I have seen and examined the patient independently today, 08/07/2025. I have read and agree with Nicole Saunders MD's history, physical examination, and medical decision-making as written. I have personally reviewed available clinical data related to today's encounter, including but not limited to laboratory studies, radiology images, vitals, and imaging reports. I have been fully involved in formulation of the assessment and plan and agree with the resident's exam findingsand plan of care as documented which I have also discussed in person with the resident. Total time spent in discharge activities today was 25 minutes. She is fully alert and feels improved since admission, has baseline sinus tachycardia which may be related to medication effect from her current meds, chronic inflammation, a degree of hypovolemia, and general deconditioning. Currently is tolerating po intake and urinating/having BMs without issue. Follow up with PCP and dermatology referral for psoriasis management. Naomie Mckenna MD Division of Hospital Medicine documented in this encounterThe [facility]09-[facility] Plan of care note* Plan of Care - Annalisa Stauffer RN - 08/07/2025 10:47 AM EDT Problem: Adult Inpatient Plan of Care Goal: Absence of Hospital-Acquired Illness or Injury Outcome: Progressing Problem: Adult Inpatient Plan of Care Goal: Readiness for Transition of Care Outcome: Progressing [facility] Hospital Discharge instructions* Discharge Instructions* Nicole Saunders MD - 08/07/2025 10:29 AM EDT Your metformin was increased to help diabetes Please call dermatology at [phone] to schedule an appointment regarding psoriasis Please follow up with your primary care provider as soon as possible documented in [facility] Nurse Note* Nursing Notes - Rebeca Miller RN - 08/06/2025 10:04 PM EDT Desirae Breen was admitted to [facility] from ED. The patient reported all personal belongings accounted for at the time of admission. They will assume responsibility for all personal belongings kept at bedside. The patient's fall risk was assessed, necessary interventions were implemented, and the fall tool was updated. A head to toe assessment completed. Please see the flowsheet for further assessment. A dual RN initial assessment of skin condition was performed by Rebeca Miller RN and STEPAN Brady. Skin Assessment: Skin within defined limits:Yes Yonatan Score: 22 LDA Added:No GEN MED 9 notified of the patient's arrival. Rebeca Miller RN [facility] Emergency department Note* Althea Kingston RN - 08/06/2025 8:36 PM EDT Attempted to call report to R9W at this time. Left phone number with [facility] for call back. [facility] Emergency department Note* Althea Kingston RN - 08/06/2025 8:36 PM EDT Attempted to call report to R[facility]W at this time. Left phone number with [facility] for call back. * Moe Gillespie MD - 08/06/2025 7:19 AM EDT Signout: Desirae Breen 40 y.o. female with a chief complaint of Vomiting and Nausea received in sign-out. Vitals: 08/05/25 2144 08/05/25 2145 08/06/25 0230 08/06/25 0555 BP: 131/64 121/80 125/79 Pulse: 150 111 105 Resp: 16 16 18 Temp: 98.3 degrees F (36.8 degrees C) TempSrc: Temporal SpO2: 96% 95% 92% Height: 1.626 m (5' 4 ) ED Course as of 08/06/25 0719 Sun Aug 06, 2025 0714 Pert.H&P: 40 y/o F with n/v ED Course: glucose 329. Ketone leak. Tachy to 150. Lactate elevated Pending: after 2 nd bolus, repeat labs Dispo Plan: pending workup. Reassessed patient. She does not feel back to her baseline. She is still persistently tachycardic into the 1 teens just while lying flat. She received 2 L of fluids. Labs decreased with a lactate of 1.9 but still elevated. Patient states that she is not in any pain right now. Glucose to decrease. Had a risks benefits discussion and she feels that she is not safe to go home so will admit patient to the hospital for persistent tachycardia. Moe Gillespie MD Resident 08/06/25 0844 * Amanda Bonner MD - 08/06/2025 1:52 AM EDT eMERGENCY dEPARTMENT eNCOUnter Patient: Desirae Breen : 1985 MR#: [id number] Primary Care Provider: Ling Fuller Date of Exam: 08/05/2025 CHIEF COMPLAINT Chief Complaint Patient presents with Vomiting Nausea HPI Desirae Breen is a 40 y.o. female, with a PMHx of NIDDM, presents with episode of nausea and vomiting earlier today. Patient states that she was on her way to the [place] football game. She has a park much further away than intended and had an prolonged walk. She had an acute incident of nausea and vomiting at this time. Noted some mild shortness of breath and chest pain along with it. States she was feeling well for the last few days. Also noted a subjective fever. No history of similar symptoms in the past. Patient is also inquiring about her blood type. Pt denies fevers, diarrhea, blood in stool, dysuria, hematuria, and loss of consciousness. PAST MEDICAL HISTORY Past Medical History[1] SURGICAL HISTORY Past Surgical History[2] CURRENT MEDICATIONS No current outpatient medications on file. ALLERGIES Allergies[3] Family history reviewed and noncontributory other than: No family history on file. Social history reviewed and noncontributory other than: Social History Socioeconomic History Marital status: Spouse name: Not on file Number of children: Not on file Years of education: Not on file Highest education level: Not on file Occupational History Not on file Tobacco Use Smoking status: Never Smokeless tobacco: Never Substance and Sexual Activity Alcohol use: Never Drug use: Never Sexual activity: Not on file Other Topics Concern Not on file Social History Narrative Not on file Social Drivers of Health Financial Resource Strain: Not on file Food Insecurity: Not on file Transportation Needs: Not on file Physical Activity: Not on file Stress: Not on file Social Connections: Not on file Personal Safety: Not on file Housing Stability: Not on file PHYSICAL EXAM Vital Signs: BP 125/79 (BP Location: Right arm, BP Position: Lying) Pulse 105 Temp 98.3 F (36.8C) (Temporal) Resp 18 Ht 1.626 m (5' 4 ) SpO2 92% Smoking Status Never Physical Exam Vitals and nursing note reviewed. Constitutional: General: She is not in acute distress. Appearance: She is not diaphoretic. HENT: Head: Normocephalic and atraumatic. Nose: Nose normal. Mouth/Throat: Mouth: Mucous membranes are moist. Cardiovascular: Rate and Rhythm: Normal rate and regular rhythm. Pulmonary: Effort: Pulmonary effort is normal. No respiratory distress. Breath sounds: Normal breath sounds. Abdominal: General: Abdomen is flat. There is no distension. Palpations: Abdomen is soft. Tenderness: There is abdominal tenderness (mild epigastric). Musculoskeletal: General: Normal range of motion. Cervical back: Normal range of motion. Skin: General: Skin is warm and dry. Capillary Refill: Capillary refill takes less than 2 seconds. Neurological: General: No focal deficit present. Mental Status: She is alert and oriented to person, place, and time. Psychiatric: Behavior: Behavior normal. Results for orders placed or performed during the hospital encounter of 08/06/25 CHEM 7 (LYTES,BUN,CREA,GLUC) Result Value Ref Range Sodium 136 135 - 145 mmol/L Potassium 4.3 3.5 - 5.0 mmol/L Chloride 101 98 - 108 mmol/L CO2 23 21 - 31 mmol/L Glucose 353 (H) Nonfastin-179 mg/dL; Fastin-99 mg/dL BUN 11 7 - 25 mg/dL Creatinine 0.77 0.50 - 1.20 mg/dL Bun/Crea Ratio 14 Osmolality (Calculated) 301 278 - 305 mOsm/kg Anion Gap 16 7 - 17 mmol/L eGFR, CKD-EPI, Female >90 >=60 mL/min/1.73m2 MAGNESIUM Result Value Ref Range Magnesium 1.6 1.6 - 2.6 mg/dL PHOSPHATE, INORGANIC Result Value Ref Range Phosphorous 3.4 2.2 - 4.6 mg/dL BETA HCG, QUAL, BLOOD Result Value Ref Range HCG (Qual) Serum Negative Negative CBC AND ELECTRONIC DIFF Result Value Ref Range WBC Count 8.46 3.99 - 11.19 K/uL RBC Count 5.23 (H) 3.91 - 5.04 M/uL Hemoglobin 14.6 11.4 - 15.2 g/dL Hematocrit 43.2 34.9 - 44.3 % Mean Cell Volume 82.6 79.6 - 97.7 fL Mean Cell Hgb 27.9 25.9 - 33.9 pg Mean Cell Hgb Conc 33.8 31.4 - 35.9 g/dL RBC Distribution 14.0 10.8 - 14.9 % Platelet Count 263 150 - 393 K/uL Mean Platelet Volume 11.4 8.5 - 12.2 fL DIFF STATUS Electronic Differential Segs + Bands Auto 76.8 % Immature Grans % 0.5 % Lymphocyte % Auto 18.1 % Monocyte % Auto 3.2 % Eosinophil % Auto 0.9 % Basophil % Auto 0.5 % Nucleated RBC 0.0 <=0.2 /100 WBC Segs + Bands,Absolute Auto 6.50 1.64 - 7.28 K/uL Immature Grans Absolute 0.04 <=0.08 K/uL Abs Lymph Auto 1.53 1.16 - 3.51 K/uL Abs Posey Auto 0.27 0.22 - 0.87 K/uL Abs Eos Auto 0.08 0.00 - 0.42 K/uL Abs Baso Auto 0.04 0.00 - 0.15 K/uL HIGH SENSITIVITY TROPONIN I - SINGLE ORDER Result Value Ref Range hs-Troponin I 3 <34 ng/L LIPASE Result Value Ref Range Lipase 16 11 - 82 U/L CALCIUM Result Value Ref Range Calcium 9.9 8.6 - 10.5 mg/dL BETA-HYDROXYBUTYRATE, SERUM Result Value Ref Range Beta Hydroxybutyrate 0.56 (H) <0.27 mmol/L HEPATIC FUNCTION PANEL Result Value Ref Range Albumin 4.3 3.5 - 5.0 g/dL Bilirubin Direct <0.1 <0.3 mg/dL Bilirubin Total 0.5 <1.5 mg/dL ALP 98 32 - 126 U/L ALT 35 9 - 48 U/L AST 25 10 - 39 U/L Total Protein 7.7 6.4 - 8.3 g/dL HIGH SENSITIVITY TROPONIN I - SINGLE ORDER Result Value Ref Range hs-Troponin I 3 <34 ng/L POC VENOUS BLOOD GAS Result Value Ref Range Specimen Type Venous pH, Venous 7.38 7.32 - 7.43 pCO2, Venous 42 36 - 52 mm Hg pO2, Venous 66 mm Hg HCO3, Venous 25 22 - 29 mmol/L sO2 (O2 Saturation), Venous 93 (H) 70 - 80 % Base Excess -0.3 -3.0 - 3.0 mmol/L Glucose, Whole Blood 369 (H) Nonfasting Glucose: 70-179 mg/dL Lactate, Whole Blood 2.9 (H) 0.5 - 1.6 mmol/L Sodium, Whole Blood 133 (L) 135 - 145 mmol/L Potassium, Whole Blood 4.5 3.5 - 5.0 mmol/L Ionized Calcium, Whole Blood 4.91 4.60 - 5.30 mg/dL Total Hemoglobin 14.7 11.4 - 15.2 g/dL Hematocrit (Calculated) 44 34 - 46 % Oxyhemoglobin 91 (L) 94 - 98 % Carboxyhemoglobin 1.8 (H) <=1.5 % Methemoglobin 0.8 <=1.5 % XR CHEST 1 VIEW PORTABLE Final Result IMPRESSION: No acute cardiopulmonary disease Medications Ondansetron (ZOFRAN) tablet 4 mg (4 mg Oral Given 08/06/25232) Lactated ringers IV solution 1,000 mL (0 mL Intravenous Stopped 08/06/25 0548) Ketorolac (TORADOL) injection 15 mg (15 mg Intravenous Given 08/06/25232) Lactated ringers IV solution 1,000 mL (1,000 mL Intravenous $$New Bag$$ 08/06/25 0548) Vitals: 08/05/25 2144 08/05/25 2145 08/06/25 0230 08/06/25 0555 BP: 131/64 121/80 125/79 Pulse: 150 111 105 Resp: 16 16 18 Temp: 98.3 degrees F (36.8 degrees C) TempSrc: Temporal SpO2: 96% 95% 92% Height: 1.626 m (5' 4 ) ED COURSE & MEDICAL DECISION MAKING Medical Decision Making Amount and/or Complexity of Data Reviewed Labs: ordered. Radiology: ordered. Risk Prescription drug management. Desirae Breen is a 40 y.o. female, with a PMHx of DM, presents with episode of nausea and vomiting after prolonged walking towards the football game today. Upon arrival, she was given a bolus of fluids, Zofran, Toradol. Symptomatically, she is feeling much better. Because of her glucose 369 and a mildly increased beta hydroxybutyrate with elevated lactate, we will give another bolus and reassess.Heart rate in triage was 150 and upon reassessment was 111. We will continue to reassess after nextbolus. Anticipate discharge if glucose and heart rate are resolved after bolus. WBC/Hgb/Hct/Plts: 8.46/14.6/44/263 (08/05 2254-08/06 217) Na/K+/Phos/Mg/Ca: 133/4.5/3.4/1.6/9.9 (08/05 2254-08/06 217) Bun/Creat/Cl/CO2/Glucose: 11/0.77/101/23/369 (08/05 2254-08/06 217) 1:52 AM Pt does not meet sepsis criteria at this time. New Prescriptions No medications on file ED Diagnoses Diagnosis Comment Associated Orders Final diagnoses Dehydration -- -- Hyperglycemia -- -- Disposition Signed out pending bolus and HR improvement A [id number] dictation tool was used in the production of this document and all attempts were made for proper editing but errors may occur. Amanda Bonner MD PGY-3 Emergency Medicine [1] No past medical history on file. [2] No past surgical history on file. [3] No Known Allergies Amanda Bonner MD Resident 08/06/25 0632 * Raquel Connolly, - 08/06/2025 1:15 AM EDT Images from the original note were not included. ED Attending Chief complaint: Chief Complaint Patient presents with Vomiting Nausea Desirae Breen 40 year old female with Pmhx of DMII, HLD, GERd who arrives to the ED for nausea and vomiting. The patient was walking to the football game today when she started to have nausea and hadabdominal pain and had an episode of emesis. She also had SOB while walking to the game and mild chest pain during vomiting. The patient has missed her trulicty doses and has been having trouble getting it filled. The patients symptoms just started today. The patient is not currenlty having SOB andCP currently. The patient is now complaining of epigastric pain and is having nauseous. The patienthas not had any blood in her ermes, and no diarrhea or consitpation. No fever no chills. The patient just ate some pizza today. Past Medical History[1] Past Surgical History[2] Social History Socioeconomic History Marital status: Spouse name: Not on file Number of children: Not on file Years of education: Not on file Highest education level: Not on file Occupational History Not on file Tobacco Use Smoking status: Never Smokeless tobacco: Never Substance and Sexual Activity Alcohol use: Never Drug use: Never Sexual activity: Not on file Other Topics Concern Not on file Social History Narrative Not on file Social Drivers of Health Financial Resource Strain: Not on file Food Insecurity: Not on file Transportation Needs: Not on file Physical Activity: Not on file Stress: Not on file Social Connections: Not on file Personal Safety: Not on file Housing Stability: Not on file No family history on file. BP 125/79 (BP Location: Right arm, BP Position: Lying) Pulse 105 Temp 98.3 F (36.8 C) (Temporal) Resp 18 Ht 1.626 m (5' 4 ) SpO2 92% Smoking Status Never Reviewed PMH and PSH as well as medical record. Medical Decision Making/Plan The patient on physical exam is overall well appearing she is morbdily obese, and has some chornic skin changes on her extremities. She is alert and oriented and initially tachycardic, no lower extremity sweling and lungs are clear The patient was found to have a glucose in the 300's and she is not on insulin and states she has missed some doses of her trulicity. She states she was walking to the game today when she started to feel bad. The patietn has a very mildly elevated beta hydroxybuterate and mildly elevated lactic acid. The patient however does not have an anion gap. The patient states she is now improved and does not have any nausea, and will give 2L of LR and then recheck her blood glucose is patient is asymptomatic will plan for discharge. The patient HR has improved appropriately with fluids At the time of sign out pending repeat glucose after LR and recheck in her HR and re-evaluation of her symptoms. If she is improved then will be discharged Medical Decision Making Problems Addressed: Dehydration: acute illness or injury Hyperglycemia: acute illness or injury Amount and/or Complexity of Data Reviewed Labs: ordered. Radiology: ordered. Risk Prescription drug management. Differential diagnosis includes but is not limited to the following at least one of which represents a life or limb threatening diagnosis hyperglycemia, DKA, HHS, EKG: NSR rate 149 tachycardic, normal axis, normal intervals, no acute ischemia Interpreted by me Impression: hyperglycemia, dehydration Disposition: pending re-evaluation Results for orders placed or performed during the hospital encounter of 08/06/25 CHEM 7 (LYTES,BUN,CREA,GLUC) Result Value Ref Range Sodium 136 135 - 145 mmol/L Potassium 4.3 3.5 - 5.0 mmol/L Chloride 101 98 - 108 mmol/L CO2 23 21 - 31 mmol/L Glucose 353 (H) Nonfastin-179 mg/dL; Fastin-99 mg/dL BUN 11 7 - 25 mg/dL Creatinine 0.77 0.50 - 1.20 mg/dL Bun/Crea Ratio 14 Osmolality (Calculated) 301 278 - 305 mOsm/kg Anion Gap 16 7 - 17 mmol/L eGFR, CKD-EPI, Female >90 >=60 mL/min/1.73m2 MAGNESIUM Result Value Ref Range Magnesium 1.6 1.6 - 2.6 mg/dL PHOSPHATE, INORGANIC Result Value Ref Range Phosphorous 3.4 2.2 - 4.6 mg/dL BETA HCG, QUAL, BLOOD Result Value Ref Range HCG (Qual) Serum Negative Negative CBC AND ELECTRONIC DIFF Result Value Ref Range WBC Count 8.46 3.99 - 11.19 K/uL RBC Count 5.23 (H) 3.91 - 5.04 M/uL Hemoglobin 14.6 11.4 - 15.2 g/dL Hematocrit 43.2 34.9 - 44.3 % Mean Cell Volume 82.6 79.6 - 97.7 fL Mean Cell Hgb 27.9 25.9 - 33.9 pg Mean Cell Hgb Conc 33.8 31.4 - 35.9 g/dL RBC Distribution 14.0 10.8 - 14.9 % Platelet Count 263 150 - 393 K/uL Mean Platelet Volume 11.4 8.5 - 12.2 fL DIFF STATUS Electronic Differential Segs + Bands Auto 76.8 % Immature Grans % 0.5 % Lymphocyte % Auto 18.1 % Monocyte % Auto 3.2 % Eosinophil % Auto 0.9 % Basophil % Auto 0.5 % Nucleated RBC 0.0 <=0.2 /100 WBC Segs + Bands,Absolute Auto 6.50 1.64 - 7.28 K/uL Immature Grans Absolute 0.04 <=0.08 K/uL Abs Lymph Auto 1.53 1.16 - 3.51 K/uL Abs Posey Auto 0.27 0.22 - 0.87 K/uL Abs Eos Auto 0.08 0.00 - 0.42 K/uL Abs Baso Auto 0.04 0.00 - 0.15 K/uL HIGH SENSITIVITY TROPONIN I - SINGLE ORDER Result Value Ref Range hs-Troponin I 3 <34 ng/L LIPASE Result Value Ref Range Lipase 16 11 - 82 U/L CALCIUM Result Value Ref Range Calcium 9.9 8.6 - 10.5 mg/dL BETA-HYDROXYBUTYRATE, SERUM Result Value Ref Range Beta Hydroxybutyrate 0.56 (H) <0.27 mmol/L HEPATIC FUNCTION PANEL Result Value Ref Range Albumin 4.3 3.5 - 5.0 g/dL Bilirubin Direct <0.1 <0.3 mg/dL Bilirubin Total 0.5 <1.5 mg/dL ALP 98 32 - 126 U/L ALT 35 9 - 48 U/L AST 25 10 - 39 U/L Total Protein 7.7 6.4 - 8.3 g/dL HIGH SENSITIVITY TROPONIN I - SINGLE ORDER Result Value Ref Range hs-Troponin I 3 <34 ng/L POC VENOUS BLOOD GAS Result Value Ref Range Specimen Type Venous pH, Venous 7.38 7.32 - 7.43 pCO2, Venous 42 36 - 52 mm Hg pO2, Venous 66 mm Hg HCO3, Venous 25 22 - 29 mmol/L sO2 (O2 Saturation), Venous 93 (H) 70 - 80 % Base Excess -0.3 -3.0 - 3.0 mmol/L Glucose, Whole Blood 369 (H) Nonfasting Glucose: 70-179 mg/dL Lactate, Whole Blood 2.9 (H) 0.5 - 1.6 mmol/L Sodium, Whole Blood 133 (L) 135 - 145 mmol/L Potassium, Whole Blood 4.5 3.5 - 5.0 mmol/L Ionized Calcium, Whole Blood 4.91 4.60 - 5.30 mg/dL Total Hemoglobin 14.7 11.4 - 15.2 g/dL Hematocrit (Calculated) 44 34 - 46 % Oxyhemoglobin 91 (L) 94 - 98 % Carboxyhemoglobin 1.8 (H) <=1.5 % Methemoglobin 0.8 <=1.5 % XR CHEST 1 VIEW PORTABLE Final Result IMPRESSION: No acute cardiopulmonary disease On 08/05/2025 I saw and examined the patient. I discussed the history and examination with the resident and agree with the plan of care. I reviewed imaging and labs that were obtained. Raquel Connolly DO [facility] [1] No past medical history on file. [2] No past surgical history on file. Raquel Connolly DO 08/06/25 0615 * Tika Garza RN - 08/06/2025 12:34 AM EDT Bed: E054 Expected date: Expected time: Means of arrival: Comments: Triage * Dagmar Rene RN - 08/05/2025 9:41 PM EDT Pt arrived to ED via EMS with c/o vomiting and nausea. Pt was walking to the game tonight when she felt short of breath and nauseous. Per medics pt BS 266. Pt states she is still feeling short of breath, states she only has chest pain when vomiting. Pt denies any alcohol use tonight, states she wasn't feeling sick before the game. [facility] History and physical note* Nicole Saunders MD - 08/06/2025 2:35 PM EDT Internal Medicine Admission History & Physical Patient: Desirae Breen, 1985, [id number] Physician: Nicole aSunders MD, PGY1, Pager #[phone], gen med 9 Date of face to face patient encounter: 08/06/25 Impression/Plan: Desirae Breen is a 40 y.o. female with past medical history of type 2 diabetes, anxiety, depression, psoriasis, hyperlipidemia, and GERD who presented due to nausea and vomiting, with persistent tachycardia in the ED. Sinus Tachycardia Favor 2/2 to anxiety vs. Gastroenteritis vs. SSRI withdrawal Nausea Dehydration - s/p 3 liters LR boluses in ED - lactate 2.9 initially, down to 1.9 - Chest xray shows no cardiopulmonary disease - Orthostatic vitals - telemetry - check TSH - Will continue to monitor for symptoms - zofran ordered as needed - resumed home anti anxiety medications Generalized Anxiety Disorder Depression - resumed home medications: amitriptyline, buspirone, escitalopram Type 2 Diabetes Mellitus - Hbg A1C ordered - Holding home meds while in hospital (metformin, trulicity, and glipizide while in the hospital) Hypertension HLD - Continued home lisinopril - continued home atorvastatin GERD - takes daily omeprazole at home - Pantoprazole daily while inpatient Quality Self-Check Complexity. . Hyponatremia - Secondary to fluid shifts. Monitor. Wound Documentation Any conditions listed below are present on admission unless otherwise specified. . DVT prophylaxis with lovenox Disposition: Home once tachycardia resolved Code status is FULL Staffed with Dr. Tyson Signed, Nicole Saunders MD Chief Complaint: Nausea, sinus tachycardia History Of Present Illness: Desirae Breen is a 40 y.o. female with past medical history of type 2 diabetes, hyperlipidemia, andGERD who presented due to nausea and vomiting, found to be persistently tachycardic in sinus rhythm. Symptoms started yesterday when patient was walking to the [place] football game from her car. She saidthere was a lot of starting and stopping on their drive due to traffic which started the nausea andthen they had to park far away. During the walk, she began feeling nauseous. She came to the ED dueto nausea and just not feeling well. She did not throw up until coming to the ED, and has thrown uponce. In the Emergency Department, she received 3 L boluses of fluid for dehydration, however, was still tachycardic after fluid replacement so she was transferred to the floor. She thinks the fluids have helped with the nausea. She denies any palpitations, shortness of breath, or chest pain. She says when she retches to through up sometimes she feels some muscle tightness in her chest. She states that she is very nervous about being in the hospital as she has lost her father 8 months ago and her brother needs her. She denies any fever, chills, chest pain, palpitations, new shortness of breath, cough, recent illness, or sick contacts. Patient has been in the ED since yesterday and has not received any of her home medications. Medical/Surgical History: Past Medical History[1] Past Surgical History[2] Patient reports: anxiety HTN Depression T2DM - on trulicity Psoriasis Social History: she reports that she has never smoked. She has never used smokeless tobacco. She reports that she does not drink alcohol and does not use drugs. Lives at home with her brother and their friend Family History: family history includes Diabetes in her father and mother; Heart Failure in her mother; Myocardial Infarction in her father. Mom had a 'weak heart' and was diabetic Dad had bleeding ulcers, anxiety, diabetes, [place] Medications: Prior to Admission Medications Prescriptions Amitriptyline 50 MG tablet Sig: Take 1 tablet by mouth at bedtime. Atorvastatin 20 MG tablet Sig: Take 1 tablet by mouth daily. Atorvastatin 40 MG tablet Sig: Take 1 tablet by mouth daily. Cetirizine 10 MG tablet Sig: Take 1 tablet by mouth daily. Cholecalciferol (Vitamin D3) 50 MCG (1999) tablet Sig: Take 2 tablets by mouth daily. Dulaglutide (Trulicity) 0.75 MG/0.5ML Solution Auto-injector injection Sig: Inject under the skin. Escitalopram 10 MG tablet Sig: Take 1 tablet by mouth daily. Lisinopril 20 MG tablet Sig: Take 2 tablets by mouth daily. Lisinopril 40 MG tablet Sig: Take 1 tablet by mouth daily. Ondansetron 4 MG tablet Sig: Take 1 tablet by mouth every 12 hours as needed for Nausea / Vomiting. busPIRone 15 MG tablet Sig: Take 1 tablet by mouth 2 times daily. escitalopram 20 MG tablet Sig: Take 1 tablet by mouth daily. glipiZIDE 5 MG tablet XL Sig: Take 1 tablet by mouth daily. metFORMIN 1000 MG tablet Sig: Take 1 tablet by mouth 2 times daily with meals. metFORMIN 500 MG tablet Sig: Take 1 tablet by mouth 2 times daily. omeprazole [address] Sig: Take 1 capsule by mouth daily. omeprazole [address] capsule Sig: Take 1 capsule by mouth daily. Facility-Administered Medications: None Allergies: Allergies[3] None to medications Review of Systems: Review of Systems Constitutional: Negative for chills, fatigue and fever. HENT: Negative for congestion, postnasal drip, rhinorrhea and sinus pain. Respiratory: Negative for cough. Cardiovascular: Negative for chest pain, palpitations and leg swelling. Gastrointestinal: Negative for blood in stool. Genitourinary: Negative for dysuria and hematuria. Musculoskeletal: Negative for arthralgias and joint swelling. Skin: Positive for rash. Neurological: Positive for dizziness. Psychiatric/Behavioral: The patient is nervous/anxious. Physical Exam: Vitals: 08/06/25 1400 BP: 132/72 Pulse: 107 Resp: 18 Temp: SpO2: 94% O2 Device: room air (08/06/25 0753) Gen: Alert, Awake, anxious and tearful Eyes: PERRLA, EOMI, no icterus Resp: CTA & P, normal respiratory effort Cardio: RRR, normal S1, S2, no M/R/G GI: S/NT/ND, NABS Skin: [place] thick plaques on BL arms with overlying scale, circular pink plaques and papules on faceand neck Neuro: Moving all four extremities equally Psych: Tearful affect Data Review: WBC/Hgb/Hct/Plts: 8.46/14.6/44/263 (08/05 2254-08/06 217) Na/K+/Phos/Mg/Ca: 133/4.5/3.4/1.6/9.9 (08/05 2254-08/06 217) Bun/Creat/Cl/CO2/Glucose: 11/0.77/101/23/206 (08/05 2254-08/06 711) Additional Labs: Latest Reference Range & Units 08/06/25 02:17 08/06/25 07:55 Lactate, Whole Blood 0.5 - 1.6 mmol/L 2.9 (H) 1.9 (H) (H): Data is abnormally high Imaging: Chest xray 08/06/25: IMPRESSION: No acute cardiopulmonary disease ECG Normal QTC, sinus tachycardia [1] Past Medical History: Diagnosis Date Anxiety Depression Diabetes mellitus GERD (gastroesophageal reflux disease) [2] No past surgical history on file. [3] No Known Allergies Cosigned by Naomie Mckenna MD at 08/07/2025 1:26 PM EDT [facility] History and physical note* Nicole Saunders MD - 08/06/2025 2:35 PM EDT Internal Medicine Admission History & Physical Patient: Desirae Breen, 1985, [id number] Physician: Nicole Saunders MD, PGY1, Pager #[phone], gen med 9 Date of face to face patient encounter: 08/06/25 Impression/Plan: Desirae Breen is a 40 y.o. female with past medical history of type 2 diabetes, anxiety, depression, psoriasis, hyperlipidemia, and GERD who presented due to nausea and vomiting, with persistent tachycardia in the ED. Sinus Tachycardia Favor 2/2 to anxiety vs. Gastroenteritis vs. SSRI withdrawal Nausea Dehydration - s/p 3 liters LR boluses in ED - lactate 2.9 initially, down to 1.9 - Chest xray shows no cardiopulmonary disease - Orthostatic vitals - telemetry - check TSH - Will continue to monitor for symptoms - zofran ordered as needed - resumed home anti anxiety medications Generalized Anxiety Disorder Depression - resumed home medications: amitriptyline, buspirone, escitalopram Type 2 Diabetes Mellitus - Hbg A1C ordered - Holding home meds while in hospital (metformin, trulicity, and glipizide while in the hospital) Hypertension HLD - Continued home lisinopril - continued home atorvastatin GERD - takes daily omeprazole at home - Pantoprazole daily while inpatient Quality Self-Check Complexity. . Hyponatremia - Secondary to fluid shifts. Monitor. Wound Documentation Any conditions listed below are present on admission unless otherwise specified. . DVT prophylaxis with lovenox Disposition: Home once tachycardia resolved Code status is FULL Staffed with Dr. Tyson Signed, Nicole Saunders MD Chief Complaint: Nausea, sinus tachycardia History Of Present Illness: Desirae Breen is a 40 y.o. female with past medical history of type 2 diabetes, hyperlipidemia, andGERD who presented due to nausea and vomiting, found to be persistently tachycardic in sinus rhythm. Symptoms started yesterday when patient was walking to the [employer] football game from her car. She saidthere was a lot of starting and stopping on their drive due to traffic which started the nausea andthen they had to park far away. During the walk, she began feeling nauseous. She came to the ED dueto nausea and just not feeling well. She did not throw up until coming to the ED, and has thrown uponce. In the Emergency Department, she received 3 L boluses of fluid for dehydration, however, was still tachycardic after fluid replacement so she was transferred to the floor. She thinks the fluids have helped with the nausea. She denies any palpitations, shortness of breath, or chest pain. She says when she retches to through up sometimes she feels some muscle tightness in her chest. She states that she is very nervous about being in the hospital as she has lost her father 8 months ago and her brother needs her. She denies any fever, chills, chest pain, palpitations, new shortness of breath, cough, recent illness, or sick contacts. Patient has been in the ED since yesterday and has not received any of her home medications. Medical/Surgical History: Past Medical History[1] Past Surgical History[2] Patient reports: anxiety HTN Depression T2DM - on trulicity Psoriasis Social History: she reports that she has never smoked. She has never used smokeless tobacco. She reports that she does not drink alcohol and does not use drugs. Lives at home with her brother and their friend Family History: family history includes Diabetes in her father and mother; Heart Failure in her mother; Myocardial Infarction in her father. Mom had a 'weak heart' and was diabetic Dad had bleeding ulcers, anxiety, diabetes, [place] Medications: Prior to Admission Medications Prescriptions Amitriptyline 50 MG tablet Sig: Take 1 tablet by mouth at bedtime. Atorvastatin 20 MG tablet Sig: Take 1 tablet by mouth daily. Atorvastatin 40 MG tablet Sig: Take 1 tablet by mouth daily. Cetirizine 10 MG tablet Sig: Take 1 tablet by mouth daily. Cholecalciferol (Vitamin D3) 50 MCG (2000 UT) tablet Sig: Take 2 tablets by mouth daily. Dulaglutide ([facility]) 0.75 MG/0.5ML Solution Auto-injector injection Sig: Inject under the skin. Escitalopram 10 MG tablet Sig: Take 1 tablet by mouth daily. Lisinopril 20 MG tablet Sig: Take 2 tablets by mouth daily. Lisinopril 40 MG tablet Sig: Take 1 tablet by mouth daily. Ondansetron 4 MG tablet Sig: Take 1 tablet by mouth every 12 hours as needed for Nausea / Vomiting. busPIRone 15 MG tablet Sig: Take 1 tablet by mouth 2 times daily. escitalopram 20 MG tablet Sig: Take 1 tablet by mouth daily. glipiZIDE 5 MG tablet XL Sig: Take 1 tablet by mouth daily. metFORMIN 1000 MG tablet Sig: Take 1 tablet by mouth 2 times daily with meals. metFORMIN 500 MG tablet Sig: Take 1 tablet by mouth 2 times daily. omeprazole [address] Sig: Take 1 capsule by mouth daily. omeprazole [address] capsule Sig: Take 1 capsule by mouth daily. Facility-Administered Medications: None Allergies: Allergies[3] None to medications Review of Systems: Review of Systems Constitutional: Negative for chills, fatigue and fever. HENT: Negative for congestion, postnasal drip, rhinorrhea and sinus pain. Respiratory: Negative for cough. Cardiovascular: Negative for chest pain, palpitations and leg swelling. Gastrointestinal: Negative for blood in stool. Genitourinary: Negative for dysuria and hematuria. Musculoskeletal: Negative for arthralgias and joint swelling. Skin: Positive for rash. Neurological: Positive for dizziness. Psychiatric/Behavioral: The patient is nervous/anxious. Physical Exam: Vitals: 08/06/25 1400 BP: 132/72 Pulse: 107 Resp: 18 Temp: SpO2: 94% O2 Device: room air (08/06/25 0753) Gen: Alert, Awake, anxious and tearful Eyes: PERRLA, EOMI, no icterus Resp: CTA & P, normal respiratory effort Cardio: RRR, normal S1, S2, no M/R/G GI: S/NT/ND, NABS Skin: [place] thick plaques on BL arms with overlying scale, circular pink plaques and papules on faceand neck Neuro: Moving all four extremities equally Psych: Tearful affect Data Review: WBC/Hgb/Hct/Plts: 8.46/14.6/44/263 (08/05 2254-08/06 217) Na/K+/Phos/Mg/Ca: 133/4.5/3.4/1.6/9.9 (08/05 2254-08/06 217) Bun/Creat/Cl/CO2/Glucose: 11/0.77/101/23/206 (08/05 2254-08/06 0711) Additional Labs: Latest Reference Range & Units 08/06/25 02:17 08/06/25 07:55 Lactate, Whole Blood 0.5 - 1.6 mmol/L 2.9 (H) 1.9 (H) (H): Data is abnormally high Imaging: Chest xray 08/06/25: IMPRESSION: No acute cardiopulmonary disease ECG Normal QTC, sinus tachycardia [1] Past Medical History: Diagnosis Date Anxiety Depression Diabetes mellitus GERD (gastroesophageal reflux disease) [2] No past surgical history on file. [3] No Known Allergies Cosigned by Naomie Mckenna MD at 08/07/2025 1:26 PM EDT [facility] Physician Emergency department Note* Moe Gillespie MD - 08/06/2025 7:19 AM EDT Signout: Desirae Breen 40 y.o. female with a chief complaint of Vomiting and Nausea received in sign-out. Vitals: 08/05/25 2144 08/05/25 2145 08/06/25 0230 08/06/25 0555 BP: 131/64 121/80 125/79 Pulse: 150 111 105 Resp: 16 16 18 Temp: 98.3 degrees F (36.8 degrees C) TempSrc: Temporal SpO2: 96% 95% 92% Height: 1.626 m (5' 4 ) ED Course as of 08/06/25 0719 Sun Aug 06, 2025 0714 Pert.H&P: 40 y/o F with n/v ED Course: glucose 329. Ketone leak. Tachy to 150. Lactate elevated Pending: after 2 nd bolus, repeat labs Dispo Plan: pending workup. Reassessed patient. She does not feel back to her baseline. She is still persistently tachycardic into the 1 teens just while lying flat. She received 2 L of fluids. Labs decreased with a lactate of 1.9 but still elevated. Patient states that she is not in any pain right now. Glucose to decrease. Had a risks benefits discussion and she feels that she is not safe to go home so will admit patient to the hospital for persistent tachycardia. Moe Gillespie MD Resident 08/06/25 0844 [facility] Work Phone: [phone] NoteAcute Coronary Syndrome (ACS): Initial Evaluation and Management: [email or web address] [facility]09-14-[facility] Physician Emergency department Note* Amanda Bonner MD - 08/06/2025 1:52 AM EDT eMERGENCY dEPARTMENT eNCOUnter Patient: Desirae Breen : 1985 MR#: [id number] Primary Care Provider: Ling Fuller Date of Exam: 08/05/2025 CHIEF COMPLAINT Chief Complaint Patient presents with Vomiting Nausea HPI Desirae Breen is a 40 y.o. female, with a PMHx of NIDDM, presents with episode of nausea and vomiting earlier today. Patient states that she was on her way to the [place] football game. She has a park much further away than intended and had an prolonged walk. She had an acute incident of nausea and vomiting at this time. Noted some mild shortness of breath and chest pain along with it. States she was feeling well for the last few days. Also noted a subjective fever. No history of similar symptoms in the past. Patient is also inquiring about her blood type. Pt denies fevers, diarrhea, blood in stool, dysuria, hematuria, and loss of consciousness. PAST MEDICAL HISTORY Past Medical History[1] SURGICAL HISTORY Past Surgical History[2] CURRENT MEDICATIONS No current outpatient medications on file. ALLERGIES Allergies[3] Family history reviewed and noncontributory other than: No family history on file. Social history reviewed and noncontributory other than: Social History Socioeconomic History Marital status: Spouse name: Not on file Number of children: Not on file Years of education: Not on file Highest education level: Not on file Occupational History Not on file Tobacco Use Smoking status: Never Smokeless tobacco: Never Substance and Sexual Activity Alcohol use: Never Drug use: Never Sexual activity: Not on file Other Topics Concern Not on file Social History Narrative Not on file Social Drivers of Health Financial Resource Strain: Not on file Food Insecurity: Not on file Transportation Needs: Not on file Physical Activity: Not on file Stress: Not on file Social Connections: Not on file Personal Safety: Not on file Housing Stability: Not on file PHYSICAL EXAM Vital Signs: BP 125/79 (BP Location: Right arm, BP Position: Lying) Pulse 105 Temp 98.3 F (36.8C) (Temporal) Resp 18 Ht 1.626 m (5' 4 ) SpO2 92% Smoking Status Never Physical Exam Vitals and nursing note reviewed. Constitutional: General: She is not in acute distress. Appearance: She is not diaphoretic. HENT: Head: Normocephalic and atraumatic. Nose: Nose normal. Mouth/Throat: Mouth: Mucous membranes are moist. Cardiovascular: Rate and Rhythm: Normal rate and regular rhythm. Pulmonary: Effort: Pulmonary effort is normal. No respiratory distress. Breath sounds: Normal breath sounds. Abdominal: General: Abdomen is flat. There is no distension. Palpations: Abdomen is soft. Tenderness: There is abdominal tenderness (mild epigastric). Musculoskeletal: General: Normal range of motion. Cervical back: Normal range of motion. Skin: General: Skin is warm and dry. Capillary Refill: Capillary refill takes less than 2 seconds. Neurological: General: No focal deficit present. Mental Status: She is alert and oriented to person, place, and time. Psychiatric: Behavior: Behavior normal. Results for orders placed or performed during the hospital encounter of 08/06/25 CHEM 7 (LYTES,BUN,CREA,GLUC) Result Value Ref Range Sodium 136 135 - 145 mmol/L Potassium 4.3 3.5 - 5.0 mmol/L Chloride 101 98 - 108 mmol/L CO2 23 21 - 31 mmol/L Glucose 353 (H) Nonfastin-179 mg/dL; Fastin-99 mg/dL BUN 11 7 - 25 mg/dL Creatinine 0.77 0.50 - 1.20 mg/dL Bun/Crea Ratio 14 Osmolality (Calculated) 301 278 - 305 mOsm/kg Anion Gap 16 7 - 17 mmol/L eGFR, CKD-EPI, Female >90 >=60 mL/min/1.73m2 MAGNESIUM Result Value Ref Range Magnesium 1.6 1.6 - 2.6 mg/dL PHOSPHATE, INORGANIC Result Value Ref Range Phosphorous 3.4 2.2 - 4.6 mg/dL BETA HCG, QUAL, BLOOD Result Value Ref Range HCG (Qual) Serum Negative Negative CBC AND ELECTRONIC DIFF Result Value Ref Range WBC Count 8.46 3.99 - 11.19 K/uL RBC Count 5.23 (H) 3.91 - 5.04 M/uL Hemoglobin 14.6 11.4 - 15.2 g/dL Hematocrit 43.2 34.9 - 44.3 % Mean Cell Volume 82.6 79.6 - 97.7 fL Mean Cell Hgb 27.9 25.9 - 33.9 pg Mean Cell Hgb Conc 33.8 31.4 - 35.9 g/dL RBC Distribution 14.0 10.8 - 14.9 % Platelet Count 263 150 - 393 K/uL Mean Platelet Volume 11.4 8.5 - 12.2 fL DIFF STATUS Electronic Differential Segs + Bands Auto 76.8 % Immature Grans % 0.5 % Lymphocyte % Auto 18.1 % Monocyte % Auto 3.2 % Eosinophil % Auto 0.9 % Basophil % Auto 0.5 % Nucleated RBC 0.0 <=0.2 /100 WBC Segs + Bands,Absolute Auto 6.50 1.64 - 7.28 K/uL Immature Grans Absolute 0.04 <=0.08 K/uL Abs Lymph Auto 1.53 1.16 - 3.51 K/uL Abs Posey Auto 0.27 0.22 - 0.87 K/uL Abs Eos Auto 0.08 0.00 - 0.42 K/uL Abs Baso Auto 0.04 0.00 - 0.15 K/uL HIGH SENSITIVITY TROPONIN I - SINGLE ORDER Result Value Ref Range hs-Troponin I 3 <34 ng/L LIPASE Result Value Ref Range Lipase 16 11 - 82 U/L CALCIUM Result Value Ref Range Calcium 9.9 8.6 - 10.5 mg/dL BETA-HYDROXYBUTYRATE, SERUM Result Value Ref Range Beta Hydroxybutyrate 0.56 (H) <0.27 mmol/L HEPATIC FUNCTION PANEL Result Value Ref Range Albumin 4.3 3.5 - 5.0 g/dL Bilirubin Direct <0.1 <0.3 mg/dL Bilirubin Total 0.5 <1.5 mg/dL ALP 98 32 - 126 U/L ALT 35 9 - 48 U/L AST 25 10 - 39 U/L Total Protein 7.7 6.4 - 8.3 g/dL HIGH SENSITIVITY TROPONIN I - SINGLE ORDER Result Value Ref Range hs-Troponin I 3 <34 ng/L POC VENOUS BLOOD GAS Result Value Ref Range Specimen Type Venous pH, Venous 7.38 7.32 - 7.43 pCO2, Venous 42 36 - 52 mm Hg pO2, Venous 66 mm Hg HCO3, Venous 25 22 - 29 mmol/L sO2 (O2 Saturation), Venous 93 (H) 70 - 80 % Base Excess -0.3 -3.0 - 3.0 mmol/L Glucose, Whole Blood 369 (H) Nonfasting Glucose: 70-179 mg/dL Lactate, Whole Blood 2.9 (H) 0.5 - 1.6 mmol/L Sodium, Whole Blood 133 (L) 135 - 145 mmol/L Potassium, Whole Blood 4.5 3.5 - 5.0 mmol/L Ionized Calcium, Whole Blood 4.91 4.60 - 5.30 mg/dL Total Hemoglobin 14.7 11.4 - 15.2 g/dL Hematocrit (Calculated) 44 34 - 46 % Oxyhemoglobin 91 (L) 94 - 98 % Carboxyhemoglobin 1.8 (H) <=1.5 % Methemoglobin 0.8 <=1.5 % XR CHEST 1 VIEW PORTABLE Final Result IMPRESSION: No acute cardiopulmonary disease Medications Ondansetron (ZOFRAN) tablet 4 mg (4 mg Oral Given 08/06/25232) Lactated ringers IV solution 1,000 mL (0 mL Intravenous Stopped 08/06/25547) Ketorolac (TORADOL) injection 15 mg (15 mg Intravenous Given 08/06/25232) Lactated ringers IV solution 1,000 mL (1,000 mL Intravenous $$New Bag$$ 08/06/25547) Vitals: 08/05/25 2144 08/05/25 2145 08/06/25 0230 08/06/25 0555 BP: 131/64 121/80 125/79 Pulse: 150 111 105 Resp: 16 16 18 Temp: 98.3 degrees F (36.8 degrees C) TempSrc: Temporal SpO2: 96% 95% 92% Height: 1.626 m (5' 4 ) ED COURSE & MEDICAL DECISION MAKING Medical Decision Making Amount and/or Complexity of Data Reviewed Labs: ordered. Radiology: ordered. Risk Prescription drug management. Desirae Breen is a 40 y.o. female, with a PMHx of DM, presents with episode of nausea and vomiting after prolonged walking towards the football game today. Upon arrival, she was given a bolus of fluids, Zofran, Toradol. Symptomatically, she is feeling much better. Because of her glucose 369 and a mildly increased beta hydroxybutyrate with elevated lactate, we will give another bolus and reassess.Heart rate in triage was 150 and upon reassessment was 111. We will continue to reassess after nextbolus. Anticipate discharge if glucose and heart rate are resolved after bolus. WBC/Hgb/Hct/Plts: 8.46/14.6/44/263 (08/05 2254-08/06 217) Na/K+/Phos/Mg/Ca: 133/4.5/3.4/1.6/9.9 (08/05 2254-08/06 217) Bun/Creat/Cl/CO2/Glucose: 11/0.77/101/23/369 (08/05 2254-08/06 217) 1:52 AM Pt does not meet sepsis criteria at this time. New Prescriptions No medications on file ED Diagnoses Diagnosis Comment Associated Orders Final diagnoses Dehydration -- -- Hyperglycemia -- -- Disposition Signed out pending bolus and HR improvement A [id number] dictation tool was used in the production of this document and all attempts were made for proper editing but errors may occur. Amanda Bonner MD PGY-3 Emergency Medicine [1] No past medical history on file. [2] No past surgical history on file. [3] No Known Allergies Amanda Bonner MD Resident 08/06/25 0632 [facility] Work Phone: [phone] NoteAcute Coronary Syndrome (ACS): Initial Evaluation and Management: [email or web address] [facility]09-14-2025 Physician Emergency department Note* Raquel Connolly, - 08/06/2025 1:15 AM EDT Images from the original note were not included. ED Attending Chief complaint: Chief Complaint Patient presents with Vomiting Nausea Desirae Jamshid 40 year old female with Pmhx of DMII, HLD, GERd who arrives to the ED for nausea and vomiting. The patient was walking to the football game today when she started to have nausea and hadabdominal pain and had an episode of emesis. She also had SOB while walking to the game and mild chest pain during vomiting. The patient has missed her trulicty doses and has been having trouble getting it filled. The patients symptoms just started today. The patient is not currenlty having SOB andCP currently. The patient is now complaining of epigastric pain and is having nauseous. The patienthas not had any blood in her ermes, and no diarrhea or consitpation. No fever no chills. The patient just ate some pizza today. Past Medical History[1] Past Surgical History[2] Social History Socioeconomic History Marital status: Spouse name: Not on file Number of children: Not on file Years of education: Not on file Highest education level: Not on file Occupational History Not on file Tobacco Use Smoking status: Never Smokeless tobacco: Never Substance and Sexual Activity Alcohol use: Never Drug use: Never Sexual activity: Not on file Other Topics Concern Not on file Social History Narrative Not on file Social Drivers of Health Financial Resource Strain: Not on file Food Insecurity: Not on file Transportation Needs: Not on file Physical Activity: Not on file Stress: Not on file Social Connections: Not on file Personal Safety: Not on file Housing Stability: Not on file No family history on file. BP 125/79 (BP Location: Right arm, BP Position: Lying) Pulse 105 Temp 98.3 F (36.8 C) (Temporal) Resp 18 Ht 1.626 m (5' 4 ) SpO2 92% Smoking Status Never Reviewed PMH and PSH as well as medical record. Medical Decision Making/Plan The patient on physical exam is overall well appearing she is morbdily obese, and has some chornic skin changes on her extremities. She is alert and oriented and initially tachycardic, no lower extremity sweling and lungs are clear The patient was found to have a glucose in the 300's and she is not on insulin and states she has missed some doses of her trulicity. She states she was walking to the game today when she started to feel bad. The patietn has a very mildly elevated beta hydroxybuterate and mildly elevated lactic acid. The patient however does not have an anion gap. The patient states she is now improved and does not have any nausea, and will give 2L of LR and then recheck her blood glucose is patient is asymptomatic will plan for discharge. The patient HR has improved appropriately with fluids At the time of sign out pending repeat glucose after LR and recheck in her HR and re-evaluation of her symptoms. If she is improved then will be discharged Medical Decision Making Problems Addressed: Dehydration: acute illness or injury Hyperglycemia: acute illness or injury Amount and/or Complexity of Data Reviewed Labs: ordered. Radiology: ordered. Risk Prescription drug management. Differential diagnosis includes but is not limited to the following at least one of which represents a life or limb threatening diagnosis hyperglycemia, DKA, HHS, EKG: NSR rate 149 tachycardic, normal axis, normal intervals, no acute ischemia Interpreted by me Impression: hyperglycemia, dehydration Disposition: pending re-evaluation Results for orders placed or performed during the hospital encounter of 08/06/25 CHEM 7 (LYTES,BUN,CREA,GLUC) Result Value Ref Range Sodium 136 135 - 145 mmol/L Potassium 4.3 3.5 - 5.0 mmol/L Chloride 101 98 - 108 mmol/L CO2 23 21 - 31 mmol/L Glucose 353 (H) Nonfastin-179 mg/dL; Fastin-99 mg/dL BUN 11 7 - 25 mg/dL Creatinine 0.77 0.50 - 1.20 mg/dL Bun/Crea Ratio 14 Osmolality (Calculated) 301 278 - 305 mOsm/kg Anion Gap 16 7 - 17 mmol/L eGFR, CKD-EPI, Female >90 >=60 mL/min/1.73m2 MAGNESIUM Result Value Ref Range Magnesium 1.6 1.6 - 2.6 mg/dL PHOSPHATE, INORGANIC Result Value Ref Range Phosphorous 3.4 2.2 - 4.6 mg/dL BETA HCG, QUAL, BLOOD Result Value Ref Range HCG (Qual) Serum Negative Negative CBC AND ELECTRONIC DIFF Result Value Ref Range WBC Count 8.46 3.99 - 11.19 K/uL RBC Count 5.23 (H) 3.91 - 5.04 M/uL Hemoglobin 14.6 11.4 - 15.2 g/dL Hematocrit 43.2 34.9 - 44.3 % Mean Cell Volume 82.6 79.6 - 97.7 fL Mean Cell Hgb 27.9 25.9 - 33.9 pg Mean Cell Hgb Conc 33.8 31.4 - 35.9 g/dL RBC Distribution 14.0 10.8 - 14.9 % Platelet Count 263 150 - 393 K/uL Mean Platelet Volume 11.4 8.5 - 12.2 fL DIFF STATUS Electronic Differential Segs + Bands Auto 76.8 % Immature Grans % 0.5 % Lymphocyte % Auto 18.1 % Monocyte % Auto 3.2 % Eosinophil % Auto 0.9 % Basophil % Auto 0.5 % Nucleated RBC 0.0 <=0.2 /100 WBC Segs + Bands,Absolute Auto 6.50 1.64 - 7.28 K/uL Immature Grans Absolute 0.04 <=0.08 K/uL Abs Lymph Auto 1.53 1.16 - 3.51 K/uL Abs Posey Auto 0.27 0.22 - 0.87 K/uL Abs Eos Auto 0.08 0.00 - 0.42 K/uL Abs Baso Auto 0.04 0.00 - 0.15 K/uL HIGH SENSITIVITY TROPONIN I - SINGLE ORDER Result Value Ref Range hs-Troponin I 3 <34 ng/L LIPASE Result Value Ref Range Lipase 16 11 - 82 U/L CALCIUM Result Value Ref Range Calcium 9.9 8.6 - 10.5 mg/dL BETA-HYDROXYBUTYRATE, SERUM Result Value Ref Range Beta Hydroxybutyrate 0.56 (H) <0.27 mmol/L HEPATIC FUNCTION PANEL Result Value Ref Range Albumin 4.3 3.5 - 5.0 g/dL Bilirubin Direct <0.1 <0.3 mg/dL Bilirubin Total 0.5 <1.5 mg/dL ALP 98 32 - 126 U/L ALT 35 9 - 48 U/L AST 25 10 - 39 U/L Total Protein 7.7 6.4 - 8.3 g/dL HIGH SENSITIVITY TROPONIN I - SINGLE ORDER Result Value Ref Range hs-Troponin I 3 <34 ng/L POC VENOUS BLOOD GAS Result Value Ref Range Specimen Type Venous pH, Venous 7.38 7.32 - 7.43 pCO2, Venous 42 36 - 52 mm Hg pO2, Venous 66 mm Hg HCO3, Venous 25 22 - 29 mmol/L sO2 (O2 Saturation), Venous 93 (H) 70 - 80 % Base Excess -0.3 -3.0 - 3.0 mmol/L Glucose, Whole Blood 369 (H) Nonfasting Glucose: 70-179 mg/dL Lactate, Whole Blood 2.9 (H) 0.5 - 1.6 mmol/L Sodium, Whole Blood 133 (L) 135 - 145 mmol/L Potassium, Whole Blood 4.5 3.5 - 5.0 mmol/L Ionized Calcium, Whole Blood 4.91 4.60 - 5.30 mg/dL Total Hemoglobin 14.7 11.4 - 15.2 g/dL Hematocrit (Calculated) 44 34 - 46 % Oxyhemoglobin 91 (L) 94 - 98 % Carboxyhemoglobin 1.8 (H) <=1.5 % Methemoglobin 0.8 <=1.5 % XR CHEST 1 VIEW PORTABLE Final Result IMPRESSION: No acute cardiopulmonary disease On 08/05/2025 I saw and examined the patient. I discussed the history and examination with the resident and agree with the plan of care. I reviewed imaging and labs that were obtained. Raquel Connolly DO [facility] [1] No past medical history on file. [2] No past surgical history on file. Raquel Connolly DO 08/06/25 0615 [facility]09-14-2025 Emergency department Note* Tika Garza RN - 08/06/2025 12:34 AM EDT Bed: E054 Expected date: Expected time: Means of arrival: Comments: Triage [facility]09-13-2025 Emergency department Note* Dagmar Rene RN - 08/05/2025 9:41 PM EDT Pt arrived to ED via EMS with c/o vomiting and nausea. Pt was walking to the game tonight when she felt short of breath and nauseous. Per medics pt BS 266. Pt states she is still feeling short of breath, states she only has chest pain when vomiting. Pt denies any alcohol use tonight, states she wasn't feeling sick before the game. [facility] Sinus tachycardia- Primary Other specified cardiac dysrhythmias Dehydration Hyperglycemia Other abnormal glucose Psoriasis Other psoriasis Type 2 diabetes mellitus with hyperglycemia Type II or unspecified type diabetes mellitus without mention of complication, not stated as uncontrolled documented in this encounter [facility] Summary Purpose Family History No Family History Records FoundNo Family History Records Found Advance Directives No Advanced Directives Records FoundDocuments on File TypeDate RecordedPatient RepresentativeExplanationHealthCare Power of Staff Trainer 08/07/2025 2:42 PMHCPOADate ActivatedDate InactivatedComments08/07/2025 6:15 AM NameRelationshipHealthcare Agent RelationshipCommunicationDedavid Burgos Jr.Sibling Health Care Agent* Additional Source Comments INFORMATION SOURCE (unrecogn ized section and content) DATE CREATED AUTHOR 03/20/2023 [facility] DATE CREATED AUTHOR AUTHOR'S ORGANIZ ATION 08/18/2025 [facility] Reason for Visit (unrecogniz ed section and content) ReasonCommentsVomitingNauseaSpecialtyDiagnoses / ProceduresReferred By Contact Referred To Contact Diagnoses Dehydration Sinus tachycardia Jennifer Tyson MD [address] [place] [address] Phone: tel: fax: [facility] [address] [place] [address] Referral IDStatusReasonStart DateExpiration DateVisits RequestedVisits [id number] Scheduled Active and Recently Administ ered Medications (unrecognized section and content) Medication Order/ Amitriptyline (ELAVIL) tablet 50 mg 50 mg, Oral, DAILY AT BEDTIME, First dose on 08/06/25 at 2100, Until Discontinued * 2142 (Given - Provider: Rebeca Miller, STEPAN) Atorvastatin (LIPITOR) tablet 40 mg 40 mg, Oral, DAILY, First dose on 08/07/25 at 0900, Until Discontinued * 0839 (Given - Provider: Annalisa Stauffer, STEPAN) busPIRone (BUSPAR) tablet 15 mg 15 mg, Oral, 2 TIMES DAILY, First dose on 08/06/25 at 1700, Until Discontinued * 1800 (Given - Provider: Althea Kingston RN) * 0839 (Given - Provider: Annalisa Stauffer RN) * 1700 (Canceled Entry - Provider: System Discharge - Comment: Automatically canceled at discontinue of medication order) Cetirizine (ZyrTEC) tablet 10 mg 10 mg, Oral, DAILY, First dose on Thu08/07/25 at 0900, Until Discontinued * 0839 (Given - Provider: Annalisa Stauffer RN) cholecalciferol (VITAMIN D3) tablet 4,000 Units 4,000 Units, Oral, DAILY, First dose on Thu08/07/25 at 0900, Until Discontinued * 0839 (Given - Provider: Annalisa Stauffer RN) Enoxaparin Sodium (LOVENOX) injection 60 mg(Linked Group 1) 60 mg, Subcutaneous, EVERY 12 HOURS NON-STANDARD, First dose (after last modification) on Thu08/07/25 at 0900, Until Discontinued, For SUBCUTANEOUS route ONLY: alternate injection sites between left and right abdominal wall, pinching location and avoiding area around navel. If unable to use abdominal sites, may use the front or side of thighs., Indications: DVT/PE prophylaxis * 0839 (Given - Provider: Annalisa Stauffer RN) escitalopram (LEXAPRO) tablet 20 mg 20 mg, Oral, DAILY, First dose on Thu08/07/25 at 0900, Until Discontinued * 0840 (Given - Provider: Annalisa Stauffer RN) Ketorolac (TORADOL) injection 15 mg (COMPLETED) 15 mg, Intravenous, ONCE, 1 dose, On Thu08/06/25 at 0230 * 0233 (Given - Provider: Chris Cochran RN) Lactated ringers IV solution 1,000 mL (COMPLETED) 1,000 mL, Intravenous, ONCE, 1 dose, On Thu08/06/25 at 0200, Fluid Bolus * 0233 ($$New Bag$$ - Provider: Chris Cochran RN) * 0548 (Stopped - Provider: Chris Cochran RN) Lactated ringers IV solution 1,000 mL (COMPLETED) 1,000 mL, Intravenous, ONCE, 1 dose, On Thu08/06/25 at 0500, For hydration * 0548 ($$New Bag$$ - Provider: Chris Cochran RN) * 0709 (Stopped - Provider: Chris Cochran, STEPAN) Lactated ringers IV solution 1,000 mL (COMPLETED) 1,000 mL, Intravenous, ONCE, 1 dose, On Thu08/06/25 at 1015, For hydration * 1101 ($$New Bag$$ - Provider: Yomaira Payne RN) * 1435 (Stopped - Provider: Althea Kingston, RN) Lisinopril (PRINIVIL) tablet 40 mg 40 mg, Oral, DAILY, First dose on Thu08/07/25 at 0900, Until Discontinued * 0839 (Given - Provider: Annalisa Stauffer, RN) Ondansetron (ZOFRAN) tablet 4 mg (COMPLETED) 4 mg, Oral, ONCE, 1 dose, On Thu08/06/25 at 0145 * 0233 (Given - Provider: Chirs Cochran, STEPAN) Pantoprazole (PROTONIX) tablet DR 40 mg 40 mg, Oral, DAILY, First dose on Thu08/07/25 at 0900, Until Discontinued, Swallow whole; do not crush or chew., Indications: Continuation of Home Therapy * 0839 (Given - Provider: Annalisa Stauffer, RN) Medication Order// Acetaminophen (TYLENOL) tablet 650 mg 650 mg, Oral, EVERY 6 HOURS NEEDED, Starting on 08/06/25 at 1514, Until Thu08/07/25 at 1826, Mild Pain, Oral temp > 100.4 F, Headaches, Alternate with ibuprofen if ordered, Maximum dose of acetaminophen is 4000 mg from all sources in 24 hours or 2000 mg from all sources in patients with cirrhosis in 24 hours. * 1800 (Given - Provider: Althea Kingston, STEPAN) guaiFENesin (ROBITUSSIN) oral solution 400 mg 400 mg, Oral, EVERY 6 HOURS NEEDED, Starting on 08/06/25 at 1514, Until Thu08/07/25 at 1826, Cough, Congestion Melatonin tablet 6 mg 6 mg, Oral, DAILY AT BEDTIME NEEDED, Starting on 08/06/25 at 1514, Until Thu08/07/25 at 1826,Insomnia Ondansetron (ZOFRAN) tablet 4 mg 4 mg, Oral, EVERY 6 HOURS NEEDED, Starting on 9/14/25 at 1537, Until Thu08/07/25 at 1826, Nausea / Vomiting Polyethylene glycol (MIRALAX) packet 17 g 17 g, Oral, DAILY NEEDED, Starting on Thu08/06/25 at 1514, Until Thu08/07/25 at 182, Constipation 1st Line Sodium chloride 0.9% IV solution 250 mL Intravenous, at 20 mL/hr, NEEDED, Starting on Thu08/06/25 at 1514, Until Thu08/07/25 at 182, Carrier Fluid - See Admin. Inst, 250mL 0.9NS to be used as carrier fluid for intermittent small volumeor piggyback medication administration as needed. Infusion rate of the carrier fluid should be set at 20 mL/hr unless the rate as the intermittent medication is less than 20 mL/hr. For intermittent medications with a rate less than 20 mL/hr set the carrier fluid at that rate of the intermittent or piggy back medication. Order Group 1: Enoxaparin Sodium (LOVENOX) injection 60 mgJump to med 60 mg, Subcutaneous, EVERY 12 HOURS NON-STANDARD, First dose (after last modification) on Thu08/07/25 at 0900, Until Discontinued, For SUBCUTANEOUS route ONLY: alternate injection sites between left and right abdominal wall, pinching location and avoiding area around navel. If unable to use abdominal sites, may use the front or side of thighs., Indications: DVT/PE prophylaxis And PLATELET COUNT (CANCELED) Routine, EVERY 3 DAYS AM LAB, First occurrence on Thu08/09/25 at 0500, Until Specified, New collection Care Teams (unrecognized sec tion and content) Team MemberRelationshipSpecialtyStart DateEnd Date Ling Fuller, ARSLAN [address] [place] [id number] PCP - GeneralNurse Practitioner - 08/06/25 FOR RECORDS PERTAINING TO PATIENTS WHO ARE [...] BE BASED ON THE PRIMARY CLINICAL RECORDS. [facility] [employer] [facility]. provides no warranty or guarantee of the accuracy or completeness of information in this document.
--- OUTSIDE RECORDS SUMMARY | 2025-09-30 12:15 | XMS_ITS | Patient Health Record ---
Author Organization [facility] in [place] Address [address] [place] [address] Care Team Providers Care Taxation Inspector Name Role Phone Ling Jacobs Primary Care Provider Allergies No Known Allergies Results Component Value Reference Range Notes INSULIN Reviewed date:03/21/2025 08:46:08 AM Interpretation: Performing Lab: Notes/Report: [facility] , Insulin 23.6 2.6-24.9 uIU/mL Performed at: - [facility] [address] [id number] Automatic Spinning Lathe Setter: Joel Mckeon PhD, Phone: [phone] Performing Lab: see note - [facility] LBGLYCOHEMOGLOBIN A1C Reviewed date:06/26/2025 04:30:23 PM Interpretation: Performing Lab: Notes/Report: [facility] ,Glycohemoglobin A1C12.34.5-6.2 % ADA RECOMMENDED LIMIT 4.0 - 6.0 ADA THERAPEUTIC TARGET < 7.0 ACTION SUGGESTED > 7.0 Estimated Average Adfsvkd875Yrrxexvwwx Lab:see note - [facility] LB GLYCOHEMOGLOBIN A1C Reviewed date:03/20/2025 01:16:12 PM Interpretation: Performing Lab: Notes/Report: [facility] ,Glycohemoglobin A1C11.04.5-6.2 % ADA RECOMMENDED LIMIT 4.0 - 6.0 ADA THERAPEUTIC TARGET < 7.0 ACTION SUGGESTED > 7.0 Estimated Average Yelmfhr166Oqpjowadvu [facility] CBC AUTO DIFF Reviewed date:03/20/2025 01:16:12 PM Interpretation: Performing Lab: Notes/Report: [facility] ,White Blood Count6.94.0-11.0 10 3/uLRed Blood Count5.234.20-5.40 10 6/uL Wvdtxaevxt50.712.0-16.0 g/tVFhwvtkixeu25.336.0-48.0 %Mean Corpuscular Aklget72.7 81.0-99.0 fLMean Corpuscular Riovgpzxjm36.126.7-34.0 pgMean Corpuscular HGB Conc 33.229.9-35.2 g/dLRed Cell Distribution Width14.011.0-15.0 %Platelet Hrfqq932 150-450 10 3/uLMean Platelet Ftckwr23.29.5-13.5 fLNeutrophils Percent Auto56.8 43.0-75.0 %Lymphocytes Percent Auto36.920.5-60.0 %Monocytes Percent Auto3.51.7- 12.0 %Eosinophils Percent Auto2.30.9-7.0 %Basophils Percent Auto0.40.2-2.0 % Immature Granulocytes Pct Auto0.10.0-0.5 %Neutrophils Absolute Auto3.91.4-6.5 10 3/uLLymphocytes Absolute Auto2.61.2-3.8 10 3/uLMonocytes Absolute Auto0.20.3-0.8 10 3/uLEosinophils Absolute Auto0.20.0-0.7 10 3/uLBasophils Absolute Auto0.00.0- 0.1 10 3/uLImmature Granulocytes Abs Auto0.010.00-0.03 10 3/uLPerforming Lab:see noteML - [facility] LBVITAMIN D 25 [place] Reviewed date:03/20/2025 01:16:12 PM Interpretation: Performing Lab: Notes/Report: [facility] ,Vitamin D35.8 <20 ng/mL Vit D deficient 20-<30 ng/mL Vit D insufficient 30-100 ng/mL Vit D sufficient >100 ng/mL Potential Toxicity Performing Lab:see noteML - [facility] LBTSH Reviewed date:03/20/2025 01:16:12 PM Interpretation: Performing Lab: Notes/Report: [facility] ,Thyroid Stimulating Hormone2.0290.358-3.740 uIU/mLPerforming Lab:see noteML - [facility] LBT4 Reviewed date:03/20/2025 01:16:12 PM Interpretation: Performing Lab: Notes/Report: [facility] ,T4 Thyroxine6.004.80-13.90 ug/dLPerforming Lab:see note - [facility] LBPROF 14(COMP METB) Reviewed date:03/20/2025 01:16:12 PM Interpretation: Performing Lab: Notes/Report: [facility] ,Mzpvzj132881-331 mmol/LPotassium4.43.5-5.1 mmol/YAvkgwxkq73161-359 mmol/LCarbon Gbgckdf07.521.0-32.0 mmol/LAnion Gap12.7Ofjpaxr37190-712 mg/dLBlood Urea Nitrogen8.07.0-18.0 mg/dLCreatinine0.750.55-1.02 mg/dLEstimated GFR ( Gladys>60>=60 mL/min/1.73m 2Estimated GFR (Non- Doris>60>=60 mL/min/1.73m 2BUN Creatinine Ratio10.7Xchbucz5.38.5-10.1 mg/dLBilirubin Total0.50.2-1.0 mg/dL Aspartate Amino Mjqnkyactje0251-56 U/LAlanine Msfvsvzhykhnrnih2049-42 U/L Alkaline Grabvdhattp68710-804 U/LTotal Protein7.66.4-8.2 g/dLAlbumin Level3.8 3.4-5.0 g/dLGlobulin3.8Albumin Globulin Ratio1.0Performing Lab:see noteML - [facility] LBLIPID PROFILE Reviewed date:03/20/2025 01:16:12 PM Interpretation: Performing Lab: Notes/Report: [facility] ,Isnxtljxcgjqm033<=150 mg/mJHcdejchohuq978<=200 mg/dLHDL Rxkkzrihboq3703-87 mg/dL > or =60 mg/dl - LOW CARDIOVASCULAR RISK <40 mg/dl - HIGH CARDIOVASCULAR RISK LDL Cholesterol Gjxulbpfyr04.0 <100 mg/dl OPTIMAL 100-129 mg/dl NEAR OR ABOVE OPTIMAL 130-159 mg/dl BORDERLINE HIGH 160-189 mg/dl HIGH >190 mg/dl VERY HIGH VLDL ISAVITXPBAP77.0Chol HDL Ratio3.7 3.3 - 4.4 LOW RISK 4.4 - 7.1 AVERAGE RISK 7.1 - 11.0 MODERATE RISK >11.0 HIGH RISK Performing Lab:see noteML - [facility] LBIRON Reviewed date:03/20/2025 01:16:12 PM Interpretation: Performing Lab: Notes/Report: [facility] ,Iron45.050.0-170.0 ug/dLPerforming Lab:see noteML - [facility] LB FREE T3 Reviewed date:03/20/2025 01:16:12 PM Interpretation: Performing Lab: Notes/Report: [facility] ,Free T32.292.18-3.98 pg/mLPerforming Lab:see noteML - [facility] Reason For Referral No Information Medications Medication SIG (Take, Route, Frequency, Duration) Notes Start Date End Date Status Metoprolol Succinate ER 25 MG 1 tablet Orally On ce a day; Duration: 30 days 5ActiveOndansetron HCl 4 MGTAKE 1 TABLET BY MOUTH TWICE A DAY NEEDED; Duration: 30ActiveCetirizine HCl 10 MGTAKE 1 TABLET BY MOUTH EVERY DAY FOR 30 DAYS; Duration: 30ActivePen [place] 31G X 6 MMas directed; Duration: 30 08/19/2024ctiveTriamcinolone Acetonide 0.1 %APPLY TO AFFECTED AREA TWICE A DAY; Duration: 30ActiveTrulicity 0.75 MG/0.5MLINJECT 1 PEN SUBCUTANEOUSLY ONCE PER WEEK DIRECTED; Duration: 28 daysActiveEscitalopram Oxalate 20 MGTAKE 1 TABLET BY MOUTH EVERY DAY FOR 30 DAYS; Duration: 30ActiveVitamin D3 50 MCG (1999 UT)TAKE 2 TABLETS BY MOUTH EVERY DAY; Duration: 30 daysActiveglipiZIDE ER 5 MG1 tablet with food Orally Once a day; Duration: 30 days5Active Amitriptyline HCl 50 MG1 tablet at bedtime Orally Once a day; Duration: 30 days 08/01/2024ctiveLisinopril 40 MGTAKE 1 TABLET BY MOUTH EVERY DAY FOR 30 DAYS; Duration: 30ActivevalACYclovir HCl 1 GM2 tablet Orally BID; Duration: 1 days 08/18/2024ctiveAtorvastatin Calcium 40 MGTAKE 1 TABLET BY MOUTH EVERY DAY; Duration: 90ActivemetFORMIN HCl 1000 MGTAKE 1 TABLET BY MOUTH TWICE A DAY WITH A MEAL FOR 90 DAYS; Duration: 90 daysActiveOmeprazole 40 MGTAKE 1 CAPSULE BY MOUTH EVERY DAY; Duration: 30ActivebusPIRone HCl 15 MGTAKE 1 TABLET BY MOUTH TWICE A DAY; Duration: 30Active Immunizations Vaccine Route Administration Date Status Comme nts Flu, Flucelvax (80133) 6 mos and older, single-dose syringe (7489-1158) Unknown 09/16/2025 Administered Social History Tobacco Use: Social History Observation Description Date Details (start date - stop date) Never Smoker NA - NA Tobacco Use/Smoking Question Answer Notes Patient is a nonsmoker Alcohol Screen (Audit-C) Question Answer Notes Did you have a drink containing alcohol in the p ast year? No Xgpvni5QimokpsngxpwwrRerltkwdVWYFX-T (Standard) Question Answer Notes Did you have a drink containing alcohol in the p ast year? No Ebnnrs4FjalyxfaenupqaLygehsfj Problems Problem Type SNOMED Code ICD Code Onset Dates Problem Status W/U Status Risk Notes Problem Type II diabetes keiko litus without complication (939155254) Type 2 diabetes mellitus without complications (E11.9) ActiveconfirmedProblemSeasonal allergic rhinitis (775847162)Seasonal allergic rhinitis (477.9)ActiveconfirmedProblemMorbid obesity (disorder) (341744240) Morbid (severe) obesity due to excess calories (E66.01)ActiveconfirmedProblem Anxiety disorder (857114560)Anxiety disorder, unspecified (F41.9)Activeconfirmed ProblemDisorder of psychological development (063279277)Other disorders of psychological development (F88)ActiveconfirmedProblemImpacted cerumen (49941644) Impacted cerumen, bilateral (H61.23)ActiveconfirmedProblemAcute frontal sinusitis (19570617)Acute recurrent frontal sinusitis (J01.11)Activeconfirmed ProblemPsoriasis (0086776)Psoriasis (L40.9)ActiveconfirmedProblemHypertension (08760678)Hypertension (I10)ActiveconfirmedProblemGastroesophageal reflux disease (366292234)GERD (gastroesophageal reflux disease) (K21.9)Activeconfirmed ProblemDyslipidemia (503147122)Dyslipidemia (E78.5)ActiveconfirmedProblem Hypertension (21422606)HTN (hypertension) (I10)ActiveconfirmedProblem Hyperglycemia (37743956)Hyperglycemia (R73.9)ActiveconfirmedProblemInsomnia (251310448)Insomnia (G47.00)ActiveconfirmedProblemVitamin D deficiency (97309652)Vitamin D deficiency (E55.9)ActiveconfirmedProblemCold sore (5785360) Cold sore (B00.1)ActiveconfirmedProblemMixed anxiety and depressive disorder (829998171)Depression with anxiety (F41.8)ActiveconfirmedProblemSeasonal allergic rhinitis (639844868)Seasonal allergic rhinitis (J30.2)Activeconfirmed ProblemDiabetes mellitus uncontrolled (853405181)Uncontrolled diabetes mellitus (E11.65)ActiveconfirmedProblemPanic attack (193415429)Panic attack (F41.0)Active confirmedProblemPanic disorder (681741669)Panic anxiety syndrome (F41.0)Active confirmedProblemDysmetabolic syndrome X (334181968)Dysmetabolic syndrome X (E88.81)ActiveconfirmedProblemHyperinsulinemia (12083952)Hyperinsulinemia (E16.1)ActiveconfirmedProblemBody mass index 40+ - morbidly obese (774259356)BMI 70 and over, adult (Z68.45)ActiveconfirmedProblemAnxiety disorder (199927759) Anxiety disorder in conditions classified elsewhere (F41.8)Activeconfirmed Vital Signs Heart Rate 96 /min 08/10/2025 Blood pressure ilgeuhhif69 mm Hg09/28/20254816Fcgile67 in09/28/2025lood pressure mibbkreu462 mm Hg09/28/20255998Xttxdv469.8 lbs111/28/2024BMI71.17 kg/m209/28/2025 Encounters Encounter Location Date Provider Diagnosis [facility] [address] [place] [address] 10/17/2024 Ling Jacobs [facility] [place] [address] 01/20/2025Pamela CramerType 2 diabetes mellitus without complications E11.[address] [facility] [facility] [address] 03Pamela CramerHypertension Z09NglxjanGrand River Health[address] [place] [address]/Pamela CramerWellness examination Z00.00[facility] [facility] [place] [address]/[facility]ela [facility]ramerGrand [facility] [place] [address]/02/2025Pamela CramerType 2 diabetes mellitus without complications E11.9[facility] [place] [facility] [place] [address]/12/2024[facility]ramer[facility] [place] [address]/[facility]ramer[facility] [facility] [place] [place] [address]/01/2025Pamela CramerType 2 diabetes mellitus without complications E11.9[facility] [place] [address]/Pamela Arlene Insomnia G47.00 ; Type 2 diabetes mellitus without complications E11.9 and Psoriasis L40.9[facility] [place] [address]/11/2024Pamela CramerType 2 diabetes mellitus without complications E11.9 and Other disorders of psychological development J56OemwckhGrand River Health[address] [place] [place] [place] [address]/02/2025Pamela Arlene Uncontrolled diabetes mellitus E11.65[facility] [place] [address]/Pamela CramerMorbid (severe) obesity due to excess calories E66.01 ; Type 2 diabetes mellitus without complications E11.9 and HTN (hypertension) C97[facility] [address] [place] [address]/06/2025Pamela CramerType 2 diabetes mellitus without complications E11.9 ; Hypertension I10 and Cold sore B00.1 Assessments Encounter Date Diagnosis (ICD Code) Assessment Notes Treatment Notes Treatment Clinical Notes Section Notes 12/22/2024 Insomnia (ICD-10 - G47.00) 06/26/2025Uncontrolled diabetes mellitus (ICD-10 - E11.65) check on Victoza supply add glipizide work on diet, discussed pt does not think she could handle a CGM, not checking BS discussed endocrine referral if BS not improving A!C 3 m changed victoza to trulicity due to supply issues 09/28/2025Type 2 diabetes mellitus without complications (ICD-10 - E11.9) 09/28/2025Hypertension (ICD-10 - I10)fu one month BP check01/20/2025Type 2 diabetes mellitus without complications (ICD-10 - E11.9)02/09/2025Hypertension (ICD-10 - I10)03/17/2025Wellness examination (ICD-10 - Z00.00)06/26/2025Type 2 diabetes mellitus without complications (ICD-10 - E11.9)09/25/2025Type 2 diabetes mellitus without complications (ICD-10 - E11.9)03/23/2025Type 2 diabetes mellitus without complications (ICD-10 - E11.9) increase Victoza work on diet not checking BS 08/10/2025Morbid (severe) obesity due to excess calories (ICD-10 - E66.01) discussed diet handouts given and gone over some in person 08/10/2025Type 2 diabetes mellitus without complications (ICD-10 - E11.9) metformin dose increased work on diet handouts given 08/10/2025HTN (hypertension) (ICD-10 - I10) continue to monitor pt states was anxious coming into office today states BP was ok in hospital 03/23/2025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)mental acuity affecting fqcyqn8309/28/2025old sore (ICD-10 - B00.1)12/22/2024Type 2 diabetes mellitus without complications (ICD-10 - E11.9)12/22/2024Psoriasis (ICD-10 - L40.9)fu derm Plan Of Treatment Pending Test Test Name Order Date CMP (COMPLETE METABOLIC PANEL) 3 CMP (COMPLETE METABOLIC PANEL) 4 HEMOGLOBIN A1C (GLYCO) 03/12/2023 HEMOGLOBIN A1C (GLYCO) 02/18/2024 HEMOGLOBIN A1C (GLYCO) 03/23/2025 HEMOGLOBIN A1C (GLYCO) 09/28/2025 HEMOGLOBIN A1C (GLYCO) 06/12/2023 HEMOGLOBIN A1C (GLYCO) 03/17/2025 HEMOGLOBIN A1C (GLYCO) 09/25/2025 IRON, TOTAL 03/17/2025 IRON, TOTAL 02/18/2024 IRON, [...] 03/17/2025 Next Appt Details Provider Name:Ling plummer, 10/27/2025 03:30:00 PM, [address] [facility], [place], [address], Insurance Providers Payer Name Payer Address Payer Phone Subscriber Number Group Number Insured Name Patient Relationship to Insured Coverage Start Date Coverage End Date [employer] [place] [employer] [address] [place] [address] [id number] Mary Breen - patient is the [id number] 2019 Medical (General) History Medical History History ICD [...] Surgical History Surgery Date(Month/Year) wisdom teeth extracted Hospitalization History Reason Date(Month/Year) dehydration 07/17
== END 2025-09-30 12:09 | disposition home or self-care (01) ==
PROVIDERS: PCP Nurse Practitioner Family; Visit Provider Nurse Practitioner Family
DX: E11.9 Type 2 diabetes mellitus without complications (principal)
CPT/HCPCS: 36415; 83036